=== PATIENT | male | born 1965 | race Caucasian/White ===

== ENCOUNTER 2019-10-31 09:36 | Emergency (ER) | payer MEDICARE, MEDICAID ==
--- NOTE | 2019-10-31 11:00 | ER Document Report ---
ED Medical Screen (RME) - General Chief Complaint: Psych Problem Stated Complaint: PSYCH EVAL/SUICIDAL IDEATION Time Seen by Provider: 10/31/19 10:55 Mode of Arrival: Ambulatory Information source: Patient Notes: 54-year-old male with history of congestive heart failure and suicide attempts presents emergency department with reports that he just wants to cut himself and . Reports history of suicide attempts. Patient is calm answering all questions appropriately, laughs easily. I have greeted and performed a rapid initial assessment of this patient. A comprehensive ED assessment and evaluation of the patient, analysis of test results and completion of the medical decision making process will be conducted by additional ED providers. Dictation of this chart was performed using voice recognition software; therefore, there may be some unintended grammatical errors. - Related Data Allergies/Adverse Reactions: No Known Allergies Allergy (Verified 10/31/19 10:56) Physical Exam - Vital signs Vitals: Temp Pulse Resp BP Pulse Ox 99.0 F 80 22 H 170/80 H 94 10/31/19 09:47 10/31/19 09:47 10/31/19 09:47 10/31/19 09:47 10/31/19 09:47 Course - Vital Signs Vital signs: Temp Pulse Resp BP Pulse Ox 99.0 F 80 22 H 170/80 H 94 10/31/19 09:47 10/31/19 09:47 10/31/19 09:47 10/31/19 09:47 10/31/19 09:47
[2019-10-31 11:33] LABS: ABSOLUTE EOSINOPHILS # (AUTO) 0.2 10^3/uL (0.0-0.6); ABSOLUTE LYMPHOCYTES (AUTO) 1.3 10^3/uL (0.5-4.7); ABSOLUTE MONOCYTES (AUTO) 0.3 10^3/uL (0.1-1.4); ABSOLUTE NEUT (AUTO) 3.8 10^3/uL (1.7-8.2); BASOPHILS % (AUTO) 0.6 % (0-2); HEMATOCRIT 41.8 % (37.9-51.0); HEMOGLOBIN 13.6 g/dL (13.5-17.0); LYMPHOCYTES % (AUTO) 22.8 % (13-45); MEAN CORPUSCULAR HEMOGLOBIN 24.9 pg (27.0-33.4); MEAN CORPUSCULAR HGB CONC 32.6 g/dL (32.0-36.0); MEAN CORPUSCULAR VOLUME 77 fl (80-97); MONOCYTES % (AUTO) 5.2 % (3-13); PLATELET COUNT 187 10^3/uL (150-450); RED BLOOD COUNT 5.46 10^6/uL (4.35-5.55); RED CELL DISTRIBUTION WIDTH 17.1 % (11.5-14.0); SEGMENTED NEUTROPHILS % (AUTO) 68.4 % (42-78); TOTAL CELLS COUNTED % (AUTO) 100 %; WHITE BLOOD COUNT 5.6 10^3/uL (4.0-10.5)
[2019-10-31 11:40] LABS: APPEARANCE,URINE SLIGHTLY-CLOUDY; BILIRUBIN,URINE NEGATIVE (NEGATIVE); COLOR,URINE YELLOW; GLUCOSE, URINE NEGATIVE (NEGATIVE); KETONES,URINE NEGATIVE (NEGATIVE); LEUKOCYTE ESTERASE,URINE NEGATIVE (NEGATIVE); NITRITE,URINE NEGATIVE (NEGATIVE); PROTEIN,URINE NEGATIVE (NEGATIVE); URINE SPECIFIC GRAVITY 1.015
[2019-10-31 11:59] LABS: ALBUMIN 4.6 g/dL (3.5-5.0); ALKALINE PHOSPHATASE 122 U/L (38-126); ANION GAP 11 (5-19); ASPARTATE AMINO TRANSFERASE 25 U/L (17-59); BILIRUBIN,DIRECT 0.1 mg/dL (0.0-0.4); BILIRUBIN,TOTAL 0.8 mg/dL (0.2-1.3); BLOOD UREA NITROGEN 16 mg/dL (7-20); CALCIUM 11.9 mg/dL (8.4-10.2); CARBON DIOXIDE 30 mmol/L (22-30); CHLORIDE 101 mmol/L (98-107); GLUCOSE 105 mg/dL (75-110); POTASSIUM 4.5 mmol/L (3.6-5.0); TOTAL PROTEIN 8.6 g/dL (6.3-8.2)
[2019-10-31 12:00] LABS: ACETAMINOPHEN < 10 ug/mL (10-30); ALCOHOL < 10 mg/dL (NONE DETECTED); SALICYLATE < 1.0 mg/dL (2.0-20.0)
[2019-10-31 12:23] LABS: URINE AMPHETAMINES SCREEN NEGATIVE; URINE BARBITURATES SCREEN NEGATIVE; URINE BENZODIAZEPINES SCREEN NEGATIVE; URINE COCAINE SCREEN NEGATIVE; URINE METHADONE SCREEN NEGATIVE; URINE PHENCYCLIDINE SCREEN NEGATIVE
[2019-10-31 12:27] LABS: URINE MARIJUANA (THC) SCREEN NEGATIVE
--- NOTE | 2019-10-31 12:42 | ER Document Report ---
Entered by ELIEL LUTZ SCRIBE 10/31/19 1204 Acting as scribe for:SARAH HOANG MD ED General <BONI LUND - Last Filed: 10/31/19 16:30> - General Mode of Arrival: Ambulatory Information source: Patient <SARAH HOANG - Last Filed: 10/31/19 17:20> - General Chief Complaint: Suicidal Ideation Stated Complaint: PSYCH EVAL/SUICIDAL IDEATION Time Seen by Provider: 10/31/19 10:55 Notes: Patient is a 54-year-old male presenting to the emergency department with suicidal ideation that began 2 days ago. Patient states he has been staying in [facility], he has strange family relations, and holidays are hard on him. Patient states that he quit drinking 2 months ago, while he was drinking he would drink a case of beer per day typically. Patient states that he does not have thoughts of harming anyone else just himself, and he has cut himself before. Patient most recently was staying in a intermediate house in [place] before he was discharged and had to move into the [facility]. Pertinent PMHx/PSHx: Additional PMHx/PSHx not pertinent to this visit as recorded: CHF, Afib, hyperlipidemia, hypertension, prediabetic. PCP: [facility] (SARAH HOANG) - Related Data Allergies/Adverse Reactions: No Known Allergies Allergy (Verified 10/31/19 10:56) Past Medical History - General Information source: Patient, [facility] Records - Social History Smoking Status: Never Smoker Cigarette use (# per day): No Chew tobacco use (# tins/day): No Smoking Education Provided: No Frequency of alcohol use: States he quit 2 months ago Drug Abuse: Cocaine, Marijuana Occupation: Unemployed Lives with: Homeless Family History: Reviewed & Not Pertinent Patient has suicidal ideation: No Patient has homicidal ideation: No - Past Medical History Cardiac Medical History: Reports: Hx Atrial Fibrillation, Hx Congestive Heart Failure, Hx Hypercholesterolemia, Hx Hypertension Psychiatric Medical History: Reports: Hx Depression Past Surgical History: Reports: Hx Orthopedic Surgery - Total left hip replacement, bone graft left knee, Hx Tonsillectomy <SARAH HOANG - Last Filed: 10/31/19 17:20> Review of Systems - Review of Systems Constitutional: No symptoms reported EENT: No symptoms reported Cardiovascular: No symptoms reported Respiratory: No symptoms reported Gastrointestinal: No symptoms reported Genitourinary: No symptoms reported Male Genitourinary: No symptoms reported Musculoskeletal: No symptoms reported Skin: No symptoms reported Hematologic/Lymphatic: No symptoms reported Neurological/Psychological: See HPI, Suicidal ideation -: Yes All other systems reviewed and negative <SARAH HOANG - Last Filed: 10/31/19 17:20> Physical Exam <SARAH HOANG - Last Filed: 10/31/19 17:20> - Vital signs Vitals: Temp Pulse Resp BP Pulse Ox 99.0 F 80 22 H 170/80 H 94 10/31/19 09:47 10/31/19 09:47 10/31/19 09:47 10/31/19 09:47 10/31/19 09:47 - Notes Notes: Physical Exam: General: Alert, morbidly obese. HEENT: Normocephalic. Atraumatic. PERRL. Extraocular movements intact. Oropharynx clear. Neck: Supple. Non-tender. Respiratory: No respiratory distress. Clear and equal breath sounds bilaterally. Cardiovascular: Regular rate and rhythm. Abdominal: Normal Inspection. Non-tender. No distension. Normal Bowel Sounds. Back: No gross abnormalities. Extremities: Moves all four extremities. Upper extremities: Normal inspection. Normal ROM. Lower extremities: Chronic venous insufficiency bilaterally. Dry skin. 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 Normal ROM. Neurological: Normal cognition. AAOx4. Normal speech. Psychological: Normal affect. Normal Mood. Skin: Warm. Dry. Normal color. (SARAH HOANG) Course - Laboratory Result Diagrams: 10/31/19 11:13 10/31/19 11:13 <BONI LUND - Last Filed: 10/31/19 16:30> - Laboratory Result Diagrams: 10/31/19 11:13 10/31/19 11:13 - EKG Interpretation by Dc EKG shows normal: Sinus rhythm, Kim, Intervals, QRS Complexes, ST-T Waves Rate: Normal - 77 Rhythm: NSR Kim/QRS: Left axis deviation Voltage: Decreased voltage <SARAH HOANG - Last Filed: 10/31/19 17:20> - Vital Signs Vital signs: Temp Pulse Resp BP Pulse Ox 97.9 F 91 20 139/73 H 100 10/31/19 16:49 10/31/19 16:49 10/31/19 16:49 10/31/19 16:49 10/31/19 16:49 - Laboratory Laboratory results interpreted by me: 10/31/19 10/31/19 10/31/19 11:13 11:13 11:13 MCV 77 L MCH 24.9 L RDW 17.1 H Calcium 11.9 H Total Protein 8.6 H Urine Urobilinogen 4.0 H Salicylates < 1.0 L Acetaminophen < 10 L Discharge <BONI LUND - Last Filed: 10/31/19 16:30> <SARAH HOANG - Last Filed: 10/31/19 17:20> - Discharge Clinical Impression: Suicidal ideation, Homeless Condition: Stable Disposition: REHAB FACILITY Additional Instructions: You have been evaluated both medical and behavioral health teams and been deemed appropriate for discharge. The behavioral health team has been able to secure a bed for you at the [facility]. You are highly encouraged to follow through with this voluntary placement. DEPRESSION: Your evaluation reveals that you have mental depression. While symptoms may be vague, they often include disturbance of sleep, fatigue, loss of appetite, and general loss of interest in life. While depression may be a side effect of drugs, or a reaction to a major change in your life, many cases have no known cause. If depression is acute, and related to a major loss in your life, you can expect it to clear completely with time. If you have been depressed a long time, are prone to repeated bouts of depression or low mood, or have been thinking of suicide, get help. Depression can be treated with anti-depressant medication and counselling. Long-term depression will often take a few weeks to clear, even with appropriate medication. Follow-up care is important. SUICIDAL IDEATION: Suicidal ideation is a common medical term for thoughts about suicide, which may be as detailed as a formulated plan, without the suicidal act itself. Although most people who undergo suicidal ideation do not commit suicide, some go on to make suicide attempts. The range of suicidal ideation varies greatly from fleeting to detailed planning, role playing, and unsuccessful attempts. While thoughts about suicide are common, most people do not carry out serious actions to commit suicide. Based upon your evaluation and discussion with you, we do not believe you are currently at risk to act upon your thoughts of suicide. You have agreed to return to the Emergency Department, at any time, if you feel inclined to act upon your suicidal thoughts. FOLLOW-UP CARE: If you have been referred to a physician for follow-up care, call the physicians office for an appointment as you were instructed or within the next two days. If you experience worsening or a significant change in your symptoms, notify the physician immediately or return to the Emergency Department at any time for re-evaluation. Scribe Attestation: 10/31/19 14:00 I personally performed the services described in the documentation, reviewed and edited the documentation which was dictated to the scribe in my presence, and it accurately records my words and actions. (SARAH HOANG) I personally performed the services described in the documentation, reviewed and edited the documentation which was dictated to the scribe in my presence, and it accurately records my words and actions.
--- NOTE | 2019-10-31 15:49 | EKG REPORT ---
SEVERITY:- OTHERWISE NORMAL ECG - SINUS RHYTHM BORDERLINE LEFT AXIS DEVIATION LOW VOLTAGE IN FRONTAL LEADS : Confirmed by: Avery Marte MD 31-Oct-2019 15:48:28
[2019-10-31] MEDS ORDERED: ATENOLOL 50 MG TABLET PO ONE (16:24)
[2019-10-31] MEDS ORDERED: LISINOPRIL 10 MG TABLET PO ONE (16:24)
[2019-10-31 16:52] VITALS: BP 139/73
== END 2019-10-31 16:58 ==
LOC: ER 09:36
DX: R45.851 Suicidal ideations (principal); Z59.0 Homelessness; I50.9 Heart failure, unspecified; I48.91 Unspecified atrial fibrillation; E78.5 Hyperlipidemia, unspecified; I11.0 Hypertensive heart disease with heart failure; R73.03 Prediabetes; E66.01 Morbid (severe) obesity due to excess calories
CPT/HCPCS: 93005; 99285; 36415; 80307 ×4; 85025; 80053; 81001; 93010; A9270 ×2

== ENCOUNTER 2019-10-31 20:02 | Emergency (ER) | payer MEDICARE, MEDICAID ==
--- NOTE | 2019-10-31 21:23 | ER Document Report ---
ED Medical Screen (RME) - General Chief Complaint: Psych Problem Stated Complaint: PSYCH Time Seen by Provider: 10/31/19 21:18 Mode of Arrival: Ambulatory Information source: Patient Notes: This 54-year-old male presents to the emergency department for the second time today for reports of suicidal ideations. He was evaluated here discharged to [place]. He returns now because he did not have the cords to his CPAP machine. Patient reports if we discharge him he will kill himself. Patient is homeless. See labs from earlier today. Respiratory rate even and unlabored. I have greeted and performed a rapid initial assessment of this patient. A comprehensive ED assessment and evaluation of the patient, analysis of test results and completion of the medical decision making process will be conducted by additional ED providers. Dictation of this chart was performed using voice recognition software; therefore, there may be some unintended grammatical errors. - Related Data Allergies/Adverse Reactions: No Known Allergies Allergy (Verified 10/31/19 10:56) Past Medical History - Past Medical History Cardiac Medical History: Reports: Hx Atrial Fibrillation, Hx Congestive Heart Failure, Hx Hypercholesterolemia, Hx Hypertension Psychiatric Medical History: Reports: Hx Depression Past Surgical History: Reports: Hx Orthopedic Surgery - Total left hip replacement, bone graft left knee, Hx Tonsillectomy Physical Exam - Vital signs Vitals: Temp Pulse Resp BP Pulse Ox 97.4 F 71 16 140/69 H 98 10/31/19 20:10 10/31/19 20:10 10/31/19 20:10 10/31/19 20:10 10/31/19 20:10 Course - Vital Signs Vital signs: Temp Pulse Resp BP Pulse Ox 97.4 F 71 16 140/69 H 98 10/31/19 20:10 10/31/19 20:10 10/31/19 20:10 10/31/19 20:10 10/31/19 20:10
--- NOTE | 2019-11-01 01:12 | ER Document Report ---
ED General - General Chief Complaint: Psych Problem Stated Complaint: PSYCH Time Seen by Provider: 10/31/19 21:18 Mode of Arrival: Ambulatory Notes: 54-year-old male presents for SI. Patient is homeless and was cleared by psych earlier and sent to [facility] however patient was discharged. Patient then presented to ER and stated that [facility] would not take him due to not having his CPAP. Patient states that his CPAP is missing parts and he has been without of it for 3 weeks. Patient states if he is discharged from the ER he will cut himself. - Related Data Allergies/Adverse Reactions: No Known Allergies Allergy (Verified 10/31/19 10:56) Home Medications: sleep. depression. seizures. BP. anxiety Past Medical History - General Information source: Patient - Social History Smoking Status: Never Smoker Chew tobacco use (# tins/day): No Frequency of alcohol use: None Drug Abuse: None Family History: Reviewed & Not Pertinent Patient has suicidal ideation: Yes Patient has homicidal ideation: No - Past Medical History Cardiac Medical History: Reports: Hx Atrial Fibrillation, Hx Congestive Heart Failure, Hx Hypercholesterolemia, Hx Hypertension Psychiatric Medical History: Reports: Hx Depression Past Surgical History: Reports: Hx Orthopedic Surgery - Total left hip replacement, bone graft left knee, Hx Tonsillectomy Review of Systems - Review of Systems Notes: Constitutional: Negative for fever. HENT: Negative for sore throat. Eyes: Negative for visual changes. Cardiovascular: Negative for chest pain. Respiratory: Negative for shortness of breath. Gastrointestinal: Negative for abdominal pain, vomiting or diarrhea. Genitourinary: Negative for dysuria. Musculoskeletal: Negative for back pain. Skin: Negative for rash. Neurological: Negative for headaches, weakness or numbness. Psych: Positive for SI. 10 point ROS negative except as marked above and in HPI. Physical Exam - Vital signs Vitals: Temp Pulse Resp BP Pulse Ox 97.4 F 71 16 140/69 H 98 10/31/19 20:10 10/31/19 20:10 10/31/19 20:10 10/31/19 20:10 10/31/19 20:10 - Notes Notes: GENERAL: Well-appearing, well-nourished and in no acute distress. HEAD: Atraumatic, normocephalic. EYES: Extraocular movements intact, sclera anicteric, conjunctiva are normal. NECK: Normal range of motion, supple without lymphadenopathy or JVD. EXTREMITIES: Normal range of motion, no pitting or edema. No clubbing or cyanosis. NEUROLOGICAL: Cranial nerves II through XII grossly intact. Normal speech, normal gait. PSYCH: Suicidal. SKIN: Warm, Dry, normal turgor, no rashes or lesions noted. Course - Re-evaluation Re-evalutation: 11/01/19 patient was medically cleared previously and sent to [facility] however was discharged from there. Patient then presented back to the ER for SI and states "if you discharge me I will cut myself." Labs were not drawn due to them being drawn less than 24 hours ago. Patient is medically cleared at this point and has a pending psych consult. - Vital Signs Vital signs: Temp Pulse Resp BP Pulse Ox 97.6 F 71 13 115/69 96 11/01/19 02:49 11/01/19 02:49 11/01/19 02:49 11/01/19 02:49 11/01/19 02:49 Discharge - Discharge Clinical Impression: Suicidal ideation Condition: Stable Disposition: PSYCH HOSP/UNIT
--- NOTE | 2019-11-01 12:15 | PSYCHOLOGICAL NOTE ---
Psych Note - Psych Note Date seen by psych provider: 11/01/19 Time seen by psych provider: 11:50 Psych Note: Patient was seen and discharged by mental health yesterday, 10/31/2019. Patient elected to voluntarily seek services through [facility]. Per report from Madeleine at [facility], patient denied SI at intake and was therefore unable to assist. Patient immediately returned to ED and endorsed SI when presented with discharge. Patient's status remains unchanged. Patient is experiencing homelessness, estrangement from family, experiences chronic health concerns, and is unable to be self reliant to have his basic needs met. DSM Diagnosis: V60.0 (Z59.0) Homelessness Medication recommendations per [facility] contracted psychiatrist Dr. Cristian WHITTAKER is as follows: NONE Impression/Plan: Patient is cleared from acute psychiatric services. Patient does not meet IVC criteria per [place] GS 122C. Patient endoreses chronic, passive suicidal ideation related to current circumstances. Patient denies homicidal ideations. There is no observed behavior that suggests patient is responding to internal stimuli. Patient denies current auditory and visual hallucinations. Kevin with [facility] has been contacted to provide assistance. Patient was provided with a street sheet of local community resources to contact for assistance. Dr. Ramsey was consulted on the care and management of this patient; attending physician is in agreement with recommendations and disposition.
[2019-11-01 18:05] VITALS: BP 153/91
== END 2019-11-01 17:58 | disposition home or self-care (01) ==
LOC: ER 20:02
DX: R45.851 Suicidal ideations (principal); Z59.0 Homelessness; I48.91 Unspecified atrial fibrillation; I50.9 Heart failure, unspecified; I11.0 Hypertensive heart disease with heart failure
CPT/HCPCS: 99284

== ENCOUNTER 2019-11-30 10:05 | Emergency (ER) | payer MEDICARE, MEDICAID ==
--- NOTE | 2019-11-30 11:24 | EKG REPORT ---
SEVERITY:- BORDERLINE ECG - SINUS RHYTHM BORDERLINE ST ELEVATION, INFERIOR LEADS : Confirmed by: Marjorie Quezada MD 30-Nov-2019 11:23:44
[2019-11-30 11:26] LABS: ABSOLUTE EOSINOPHILS # (AUTO) 0.2 10^3/uL (0.0-0.6); ABSOLUTE LYMPHOCYTES (AUTO) 0.9 10^3/uL (0.5-4.7); ABSOLUTE MONOCYTES (AUTO) 0.4 10^3/uL (0.1-1.4); ABSOLUTE NEUT (AUTO) 3.7 10^3/uL (1.7-8.2); BASOPHILS % (AUTO) 0.8 % (0-2); EOSINOPHILS % (AUTO) 4.3 % (0-6); HEMATOCRIT 36.4 % (37.9-51.0); HEMOGLOBIN 11.7 g/dL (13.5-17.0); LYMPHOCYTES % (AUTO) 16.8 % (13-45); MEAN CORPUSCULAR HEMOGLOBIN 24.6 pg (27.0-33.4); MEAN CORPUSCULAR HGB CONC 32.1 g/dL (32.0-36.0); MEAN CORPUSCULAR VOLUME 77 fl (80-97); PLATELET COUNT 188 10^3/uL (150-450); RED BLOOD COUNT 4.75 10^6/uL (4.35-5.55); RED CELL DISTRIBUTION WIDTH 16.4 % (11.5-14.0); SEGMENTED NEUTROPHILS % (AUTO) 71.1 % (42-78); TOTAL CELLS COUNTED % (AUTO) 100 %; WHITE BLOOD COUNT 5.3 10^3/uL (4.0-10.5)
--- NOTE | 2019-11-30 11:44 | ER Document Report ---
ED General <ALONDRA KAY - Last Filed: 11/30/19 16:36> <VIVIANA STOVALL JR - Last Filed: 11/30/19 18:13> - General Chief Complaint: Chest Pain Stated Complaint: CHEST PAIN Time Seen by Provider: 11/30/19 11:41 Notes: 54-year-old male with a history of congestive heart failure presents emergency department complaining of intermittent chest pain and pressure starting at 6 PM last night that is been getting progressively worse. Denies shortness of breath at rest, diaphoresis, nausea, vomiting, diarrhea. Admits dyspnea max exetion. Patient admits to history of atrial fibrillation and congestive heart failure, denies any history of heart attack although his mother from heart attack at 57, father is still alive at 100 years old. Patient states his last stress test was 1 to 2 years ago in [place]. Admits prediabetes, hypertension and hyperlipidemia, states he is out of his medications. (ALONDRA KAY) - Related Data Allergies/Adverse Reactions: No Known Allergies Allergy (Verified 10/31/19 10:56) Past Medical History - General Information source: Patient - Social History Smoking Status: Former Smoker Frequency of alcohol use: None - Patient denies but review of the record shows prior heavy alcohol use Drug Abuse: Marijuana Family History: CAD - Mother from [place] at 57 Patient has suicidal ideation: No Patient has homicidal ideation: No - Past Medical History Cardiac Medical History: Reports: Hx Atrial Fibrillation, Hx Congestive Heart Failure, Hx Hypercholesterolemia, Hx Hypertension Psychiatric Medical History: Reports: Hx Depression Past Surgical History: Reports: Hx Orthopedic Surgery - Total left hip replacement, bone graft left knee, Hx Tonsillectomy <ALONDRA KAY - Last Filed: 11/30/19 16:36> Review of Systems - Review of Systems Constitutional: No symptoms reported Cardiovascular: See HPI, Edema - Admits chronic swelling to his legs. Respiratory: Other - Dyspnea on exertion Gastrointestinal: No symptoms reported Musculoskeletal: Leg swelling - States this is chronic, Ankle swelling -: Yes All other systems reviewed and negative <ALONDRA KAY - Last Filed: 11/30/19 16:36> Physical Exam - Vital signs Interpretation: Hypertensive <ALONDRA KAY - Last Filed: 11/30/19 16:36> - Vital signs Vitals: Temp Pulse Resp BP Pulse Ox 97.5 F 72 22 H 175/84 H 93 11/30/19 10:39 11/30/19 10:39 11/30/19 10:39 11/30/19 10:39 11/30/19 10:39 - Notes Notes: GENERAL: Alert, interacts well. No acute distress. Orbitally obese. HEAD: Normocephalic, atraumatic EYES: Pupils equal, round and reactive to light, extraocular movements intact. ENT: Oral mucosa moist, tongue midline. NECK: Full range of motion, supple, trachea midline. LUNGS: Clear to auscultation bilaterally, no wheezes, rales or rhonchi, no respiratory distress. HEART: Regular rate and rhythm, no murmurs, gallops, rubs. ABDOMEN: Soft, nontender, nondistended, bowel sounds present in all 4 quadrants. EXTREMITIES: Moves all 4 extremities spontaneously, markedly swollen lower extremities, pitting portion of edema is only 1+, large amount of nonpitting edema, states this is chronic for him and not changed from baseline, radial and dorsalis pedis pulses 2/4 bilaterally. No cyanosis. NEUROLOGICAL: Alert and oriented x3, normal speech. PSYCH: Normal mood, normal affect. SKIN: Warm, Dry, mild erythema to the bilateral lower extremities consistent with chronic cellulitis. (ALONDRA KAY) Course - Laboratory Result Diagrams: 11/30/19 11:10 11/30/19 11:10 <ALONDRA KAY - Last Filed: 11/30/19 16:36> - Laboratory Result Diagrams: 11/30/19 11:10 11/30/19 11:10 <VIVIANA STOVALL JR - Last Filed: 11/30/19 18:13> - Re-evaluation Re-evalutation: 11/30/19 15:46 CBC shows anemia with hemoglobin 11.7, CMP unremarkable, troponin negative x2, proBNP unremarkable at 123, alcohol undetectable. Chest x-ray shows no acute process. Patient will be ambulated with pulse ox to look for hypoxia on exertion. 11/30/19 16:02 Nursing attempted to ambulate patient with pulse ox, simply moving around in the bed the patient apparently desaturates to 88%, I do not have another source for hypoxia, lung sounds are normal. Patient will be sent for CT angiogram to assess for pulmonary embolism causing his chest pain and his shortness of breath. 11/30/19 16:39 Dr. Stovall will follow-up on the results of the CTA and further assess for final disposition. (ALONDRA KAY) 11/30/19 18:09 pt was rechecked with 94% sat standing ; no tachycardia and 100% sat; I dced CT PE (VIVIANA STOVALL JR) - Vital Signs Vital signs: Temp Pulse Resp BP Pulse Ox 97.5 F 72 22 H 175/84 H 97 11/30/19 10:39 11/30/19 10:39 11/30/19 10:39 11/30/19 10:39 11/30/19 11:25 - Laboratory Laboratory results interpreted by me: 11/30/19 11/30/19 11:10 11:10 Hgb 11.7 L Hct 36.4 L MCV 77 L MCH 24.6 L RDW 16.4 H Calcium 10.5 H - EKG Interpretation by Me Additional EKG results interpreted by me: 11/30/19 11:44 EKG shows sinus rhythm at a rate of 72, normal axis, normal intervals, no significant ST segment elevations, there are elevations in 2, 3, aVF that are le ss than 1 mm, no depressions,, no T wave inversions per my interpretation. (ALONDRA KAY) Discharge <ALONDRA KAY - Last Filed: 11/30/19 16:36> <VIVIANA STOVALL JR - Last Filed: 11/30/19 18:13> - Discharge Clinical Impression: Hypertension, Chest pain at rest, Leg edema Condition: Good Disposition: HOME, SELF-CARE Prescriptions: Metolazone [Zaroxolyn 5 Mg Tablet] 5 mg PO DAILY #5 tablet
[2019-11-30 11:52] LABS: ALKALINE PHOSPHATASE 116 U/L (38-126); ANION GAP 7 (5-19); ASPARTATE AMINO TRANSFERASE 35 U/L (17-59); BILIRUBIN,DIRECT 0.3 mg/dL (0.0-0.4); BILIRUBIN,TOTAL 0.8 mg/dL (0.2-1.3); BLOOD UREA NITROGEN 14 mg/dL (7-20); CALCIUM 10.5 mg/dL (8.4-10.2); CARBON DIOXIDE 26 mmol/L (22-30); CHLORIDE 106 mmol/L (98-107); CREATINE KINASE 74 U/L (55-170); GLUCOSE 100 mg/dL (75-110); POTASSIUM 4.7 mmol/L (3.6-5.0); TOTAL PROTEIN 7.8 g/dL (6.3-8.2)
[2019-11-30 12:00] LABS: CREATINE KINASE MB 1.08 ng/mL (<4.55)
--- NOTE | 2019-11-30 12:03 | RADIOLOGY REPORT (SQ) ---
EXAM DESCRIPTION: CHEST 2 VIEWS COMPLETED DATE/TIME: 11/30/2019 11:38 am REASON FOR STUDY: cp COMPARISON: None. EXAM PARAMETERS: NUMBER OF VIEWS: two views TECHNIQUE: Digital Frontal and Lateral radiographic views of the chest acquired. RADIATION DOSE: NA LIMITATIONS: none FINDINGS: LUNGS AND PLEURA: No opacities, masses or pneumothorax. No pleural effusion. MEDIASTINUM AND HILAR STRUCTURES: No masses or contour abnormalities. HEART AND VASCULAR STRUCTURES: Heart normal size. No evidence for failure. BONES: No acute findings. HARDWARE: None in the chest. OTHER: No other significant finding. IMPRESSION: NO ACUTE RADIOGRAPHIC FINDING IN THE CHEST. TECHNICAL DOCUMENTATION: JOB ID: [id number] [employer]- All Rights Reserved Reading location - IP/workstation name: [email or web address]
[2019-11-30 12:04] LABS: TROPONIN I < 0.012 ng/mL
[2019-11-30] MEDS ORDERED: METOPROLOL TARTRATE 50 MG TABLET PO ONE (12:18)
[2019-11-30 15:10] LABS: NT PRO BNP 123 pg/mL (<125); TROPONIN I < 0.012 ng/mL
[2019-11-30] MEDS ORDERED: BUMETANIDE INJ/PF 1 MG/4 ML SDV IV ONE (16:55)
[2019-11-30] MEDS ORDERED: METOLAZONE 5 MG TABLET PO ONE (16:55)
[2019-11-30] MEDS ORDERED: MAGNESIUM SULFATE PF/INJ 40 MEQ/10 ML SDV IV ONE (16:56)
[2019-11-30] MEDS ORDERED: MAGNESIUM SULFATE/D5W 1 GM/100 ML RTUPB IV ONE (18:00)
[2019-11-30] MEDS ORDERED: DILTIAZEM HCL INJ 25 MG/5 ML VIAL IV ONE (18:29)
[2019-11-30 19:30] VITALS: BP 159/93
== END 2019-11-30 19:47 | disposition home or self-care (01) ==
LOC: ER 10:05
DX: R07.89 Other chest pain (principal); I10 Essential (primary) hypertension; R60.0 Localized edema; D64.9 Anemia, unspecified; R06.02 Shortness of breath; L53.9 Erythematous condition, unspecified; F12.10 Cannabis abuse, uncomplicated; Z87.891 Personal history of nicotine dependence; Z82.49 Family history of ischemic heart disease and other diseases of the circulatory system
CPT/HCPCS: 93005; 99285; 96374; 96375; 36415; 82553; 80307; 82550; 83735; 85025; 80053; 84484; 83880; 71046; 93010; J3490 ×2; A9270 ×2

== ENCOUNTER 2019-12-12 11:44 | Emergency (ER) | payer MEDICARE, MEDICAID ==
[2019-12-12] MEDS ORDERED: ONDANSETRON 4 MG TAB.RAPDIS PO ONE (13:30)
--- NOTE | 2019-12-12 13:34 | ER Document Report ---
ED Medical Screen (RME) - General Stated Complaint: ABDOMINAL PAIN/CONSTIPATION Time Seen by Provider: 12/12/19 13:24 Notes: Patient is a 54-year-old male with a history of hypertension, seizures, high cholesterol and A. fib on Xarelto presents emergency department with multiple complaints. Patient reports he developed generalized abdominal pain last night. Patient reports he is having bilateral kidney pain as well as constipation. Patient reports body aches without fever. Patient reports nausea without vomiting or diarrhea. Patient states he does not have any issues with his kidneys or have a history of kidney stones. Patient reports that his urine is slightly darker than normal but is not having any trouble urinating. Patient reports he is not on any medications that he is aware of that would cause constipation. Patient reports that his last bowel movement was yesterday, very small and hard. Patient denies blood in the stool. Patient reports his last normal bowel movement was a few days ago. - Related Data Allergies/Adverse Reactions: No Known Allergies Allergy (Verified 12/12/19 13:24) Past Medical History - Past Medical History Cardiac Medical History: Reports: Hx Atrial Fibrillation, Hx Congestive Heart Failure, Hx Hypercholesterolemia, Hx Hypertension Psychiatric Medical History: Reports: Hx Depression Past Surgical History: Reports: Hx Orthopedic Surgery - Total left hip replacement, bone graft left knee, Hx Tonsillectomy Physical Exam - Vital signs Vitals: Temp Pulse Resp BP Pulse Ox 99.4 F 87 28 H 191/80 H 97 12/12/19 12:36 12/12/19 12:36 12/12/19 12:36 12/12/19 12:36 12/12/19 12:36 - Abdominal Inspection: Morbidly Obese Distension: No distension Bowel sounds: Hyperactive Tenderness: Nontender Organomegaly: No organomegaly Course - Re-evaluation Re-evalutation: 12/12/19 13:32 Patient nontoxic-appearing in triage. Patient is hypertensive with a blood pressure of 191/80. Patient reports having generalized abdominal pain. Patient require a thorough abdominal exam once placed on a stretcher and in the room. Will start out with blood work, urinalysis and give a dose of antinausea medication. I have greeted and performed a rapid initial assessment of this patient. A comprehensive ED assessment and evaluation of the patient, analysis of test results and completion of the medical decision making process will be conducted by additional ED providers. - Vital Signs Vital signs: Temp Pulse Resp BP Pulse Ox 99.4 F 87 28 H 191/80 H 97 12/12/19 12:36 12/12/19 12:36 12/12/19 12:36 12/12/19 12:36 12/12/19 12:36
[2019-12-12 14:25] LABS: ABSOLUTE EOSINOPHILS # (AUTO) 0.1 10^3/uL (0.0-0.6); ABSOLUTE LYMPHOCYTES (AUTO) 0.6 10^3/uL (0.5-4.7); ABSOLUTE MONOCYTES (AUTO) 0.2 10^3/uL (0.1-1.4); ABSOLUTE NEUT (AUTO) 5.5 10^3/uL (1.7-8.2); BASOPHILS % (AUTO) 0.2 % (0-2); EOSINOPHILS % (AUTO) 1.3 % (0-6); HEMATOCRIT 39.6 % (37.9-51.0); HEMOGLOBIN 13.1 g/dL (13.5-17.0); LYMPHOCYTES % (AUTO) 10.1 % (13-45); MEAN CORPUSCULAR HEMOGLOBIN 25.2 pg (27.0-33.4); MEAN CORPUSCULAR VOLUME 76 fl (80-97); MONOCYTES % (AUTO) 3.1 % (3-13); PLATELET COUNT 166 10^3/uL (150-450); RED BLOOD COUNT 5.19 10^6/uL (4.35-5.55); RED CELL DISTRIBUTION WIDTH 17.1 % (11.5-14.0); SEGMENTED NEUTROPHILS % (AUTO) 85.3 % (42-78); TOTAL CELLS COUNTED % (AUTO) 100 %; WHITE BLOOD COUNT 6.4 10^3/uL (4.0-10.5)
[2019-12-12 14:46] LABS: ALBUMIN 4.3 g/dL (3.5-5.0); ALKALINE PHOSPHATASE 107 U/L (38-126); ANION GAP 11 (5-19); ASPARTATE AMINO TRANSFERASE 38 U/L (17-59); BILIRUBIN,DIRECT 0.2 mg/dL (0.0-0.4); BILIRUBIN,TOTAL 0.8 mg/dL (0.2-1.3); BLOOD UREA NITROGEN 22 mg/dL (7-20); CALCIUM 11.1 mg/dL (8.4-10.2); CARBON DIOXIDE 27 mmol/L (22-30); CHLORIDE 100 mmol/L (98-107); GLUCOSE 109 mg/dL (75-110); TOTAL PROTEIN 8.2 g/dL (6.3-8.2)
[2019-12-12 14:48] LABS: APPEARANCE,URINE CLEAR; BILIRUBIN,URINE NEGATIVE (NEGATIVE); COLOR,URINE YELLOW; GLUCOSE, URINE NEGATIVE (NEGATIVE); KETONES,URINE NEGATIVE (NEGATIVE); LEUKOCYTE ESTERASE,URINE NEGATIVE (NEGATIVE); NITRITE,URINE NEGATIVE (NEGATIVE); PROTEIN,URINE NEGATIVE (NEGATIVE); URINE SPECIFIC GRAVITY 1.019
--- NOTE | 2019-12-12 14:58 | ER Document Report ---
ED General - General Chief Complaint: Abdominal Pain Stated Complaint: ABDOMINAL PAIN/CONSTIPATION Time Seen by Provider: 12/12/19 13:24 Mode of Arrival: Ambulatory Information source: Patient Notes: 54-year-old male arrives with chief complaint of 1 day history of diffuse abdominal pain and constipation. Patient has a history of CHF hypertension seizures hypercholesterolemia A. fib Xarelto user. Patient's last bowel movement was yesterday. He complains of pain all over from belly to upper and mid back. He denies any dysuria but does say his urine is more concentrated. I advised him his blood test and urine test revealed increased urobilinogen in his urine indicating stool color absorption and excretion in urine. Patient does not live far from the hospital. TRAVEL OUTSIDE OF THE [place] IN LAST 30 DAYS: No - HPI Onset: This morning Onset/Duration: Sudden Quality of pain: Achy Severity: Moderate Pain Level: 2 Associated symptoms: Weakness, Other - And bilateral kidney pain pointing to his back Exacerbated by: Movement Relieved by: Denies Similar symptoms previously: Yes Recently seen / treated by doctor: Yes - Related Data Allergies/Adverse Reactions: No Known Allergies Allergy (Verified 12/12/19 13:24) Past Medical History - General Information source: Patient - Social History Smoking Status: Former Smoker Cigarette use (# per day): No Chew tobacco use (# tins/day): No Smoking Education Provided: No Frequency of alcohol use: None Drug Abuse: None Family History: CAD - Mother from [place] at 57 Patient has suicidal ideation: No Patient has homicidal ideation: No - Past Medical History Cardiac Medical History: Reports: Hx Atrial Fibrillation, Hx Congestive Heart Failure, Hx Hypercholesterolemia, Hx Hypertension EENT Medical History: Reports: None Endocrine Medical History: Reports: Other - obesity Psychiatric Medical History: Reports: Hx Depression Past Surgical History: Reports: Hx Orthopedic Surgery - Total left hip replacement, bone graft left knee, Hx Tonsillectomy Review of Systems - Review of Systems Constitutional: Other - malaise Physical Exam - Vital signs Vitals: Temp Pulse Resp BP Pulse Ox 99.4 F 87 28 H 191/80 H 97 12/12/19 12:36 12/12/19 12:36 12/12/19 12:36 12/12/19 12:36 12/12/19 12:36 Interpretation: Normal, Hypertensive - General General appearance: Appears well, Other - Morbid obesity - HEENT Head: Normocephalic Eyes: Normal Conjunctiva: Normal Cornea: Normal Extraocular movements intact: Yes Pupils: PERRL Mouth/Lips: Normal Pharynx: Normal Neck: Normal - Respiratory Respiratory status: No respiratory distress Chest status: Nontender Breath sounds: Normal Chest palpation: Normal - Cardiovascular Rhythm: Irregularly irregular Heart sounds: Normal auscultation Murmur: No Friction rub: No Domingo's crunch: No - Abdominal Inspection: Normal Distension: No distension Bowel sounds: Normal Tenderness: Nontender Organomegaly: No organomegaly - Back Back: Normal - Extremities General upper extremity: Normal inspection General lower extremity: Normal inspection - Neurological Neuro grossly intact: Yes Cognition: Normal Orientation: AAOx4 [place] Coma Scale Eye Opening: Spontaneous [place] Coma Scale Verbal: Oriented Speech: Normal Cranial nerves: Normal - Psychological Associated symptoms: Normal affect - Skin Skin Temperature: Warm Skin Moisture: Dry Course - Vital Signs Vital signs: Temp Pulse Resp BP Pulse Ox 99.4 F 87 22 H 133/62 H 96 12/12/19 12:36 12/12/19 12:36 12/12/19 18:02 12/12/19 18:02 12/12/19 18:02 - Laboratory Result Diagrams: 12/12/19 14:00 12/12/19 14:00 Laboratory results interpreted by me: 12/12/19 12/12/19 12/12/19 13:50 14:00 14:00 Hgb 13.1 L MCV 76 L MCH 25.2 L RDW 17.1 H Lymph % (Auto) 10.1 L Seg Neutrophils % 85.3 H BUN 22 H Calcium 11.1 H Urine Urobilinogen 2.0 H Critical Care Note - Critical Care Note Total time excluding time spent on procedures (mins): 90 Discharge - Discharge Clinical Impression: Constipation Qualifiers: Constipation type: unspecified constipation type Qualified Code(s): K59.00 - Constipation, unspecified Hypertension Qualifiers: Hypertension type: unspecified Qualified Code(s): I10 - Essential (primary) hypertension Condition: Good Disposition: HOME, SELF-CARE Additional Instructions: Follow-up with personal doctor this week return to ER as needed; eat an apple a day and take medicines as directed Prescriptions: Lactulose [Cephulac Syrup 20 gm/30 ml Udcup] 20 gm PO DAILY PRN #100 ml PRN Reason:
[2019-12-12] MEDS ORDERED: LACTULOSE SYRUP 20 GM/30 ML UDCUP PO ONE (15:15)
[2019-12-12] MEDS ORDERED: MISOPROSTOL 0.2 MG TABLET PO ONE (15:15)
[2019-12-12] MEDS ORDERED: MAGNESIUM CITRATE 296 ML BOTTLE PO ONE (15:16)
--- NOTE | 2019-12-12 16:13 | RADIOLOGY REPORT (SQ) ---
EXAM DESCRIPTION: ACUTE ABDOMEN SERIES COMPLETED DATE/TIME: 12/12/2019 3:45 pm REASON FOR STUDY: stomach pain COMPARISON: None. NUMBER OF VIEWS: Three views. TECHNIQUE: Frontal chest, supine abdomen and upright/decubitus abdomen radiographic images acquired. LIMITATIONS: None. FINDINGS: CHEST: Lungs clear of infiltrates. FREE AIR: None. No abnormal gas collections. BOWEL GAS PATTERN: Nonobstructive pattern. No dilated loops or air fluid levels. CALCIFICATIONS: No suspicious calcifications. HARDWARE: Intact total left hip arthroplasty hardware. SOFT TISSUES: No gross mass or suggestion of organomegaly. BONES: No acute fracture. No worrisome bone lesions. OTHER: No other significant finding. IMPRESSION: NO RADIOGRAPHIC EVIDENCE FOR ACUTE ABDOMINAL DISEASE. TECHNICAL DOCUMENTATION: JOB ID: [id number] [employer]- All Rights Reserved Reading location - IP/workstation name: [email or web address]
[2019-12-12] MEDS ORDERED: CLONIDINE HCL 0.2 MG TABLET PO ONE (19:47)
[2019-12-12 20:09] VITALS: BP 140/54
== END 2019-12-12 20:13 | disposition home or self-care (01) ==
LOC: ER 11:44
DX: K59.00 Constipation, unspecified (principal); R53.1 Weakness; N23 Unspecified renal colic; M54.9 Dorsalgia, unspecified; R53.81 Other malaise; E66.01 Morbid (severe) obesity due to excess calories; I10 Essential (primary) hypertension; I48.91 Unspecified atrial fibrillation; Z79.01 Long term (current) use of anticoagulants; Z87.891 Personal history of nicotine dependence
CPT/HCPCS: 99285; 36415; 83690; 85025; 80053; 81001; 74022; A9270 ×5; J3490; S0119

== ENCOUNTER 2019-12-16 14:04 | Emergency (ER) | payer MEDICARE, MEDICAID ==
--- NOTE | 2019-12-16 15:54 | ER Document Report ---
ED Medical Screen (RME) - General Chief Complaint: Weakness Stated Complaint: RIGHT LEG WEAKNESS Time Seen by Provider: 12/16/19 15:50 Mode of Arrival: Medic Information source: Patient Notes: 54-year-old male presented to ED for complaint of weakness and numbness from his hip to his foot on his right side. He states he was walking when also he had numbness and weakness to this leg. He states he sat on a wall called the ambulance and came to the hospital. He states he does not know why it also leg went numb. He states he has no previous history of weakness or numbness to this leg he has no history of falls he does not know why he obviously has numbness weakness to this leg. States he does have some pain in his hip level 4. Any incontinence of urine can you put weight on her kidney picking up he is able to move his right leg at this time. He states he has not had any incontinence of urine or stool. He states he does not smoke or drink but he does occasionally use marijuana. He states he is homeless [facility]. I have greeted and performed a rapid initial assessment of this patient. A comprehensive ED assessment and evaluation of the patient, analysis of test results and completion of medical decision making process will be conducted by an additional ED providers. TRAVEL OUTSIDE OF THE [place] IN LAST 30 DAYS: No - Related Data Allergies/Adverse Reactions: No Known Allergies Allergy (Verified 12/12/19 13:24) Past Medical History - Past Medical History Cardiac Medical History: Reports: Hx Atrial Fibrillation, Hx Congestive Heart Failure, Hx Hypercholesterolemia, Hx Hypertension Psychiatric Medical History: Reports: Hx Depression Past Surgical History: Reports: Hx Orthopedic Surgery - Total left hip replacement, bone graft left knee, Hx Tonsillectomy
[2019-12-16] MEDS ORDERED: ACETAMINOPHEN 325 MG TABLET PO ONE (15:55)
[2019-12-16 16:05] VITALS: BP 152/75
[2019-12-16 16:33] LABS: ABSOLUTE EOSINOPHILS # (AUTO) 0.1 10^3/uL (0.0-0.6); ABSOLUTE LYMPHOCYTES (AUTO) 1.1 10^3/uL (0.5-4.7); ABSOLUTE MONOCYTES (AUTO) 0.2 10^3/uL (0.1-1.4); ABSOLUTE NEUT (AUTO) 2.7 10^3/uL (1.7-8.2); BASOPHILS % (AUTO) 0.5 % (0-2); EOSINOPHILS % (AUTO) 2.9 % (0-6); HEMATOCRIT 37.9 % (37.9-51.0); HEMOGLOBIN 12.4 g/dL (13.5-17.0); MEAN CORPUSCULAR HEMOGLOBIN 24.9 pg (27.0-33.4); MEAN CORPUSCULAR HGB CONC 32.6 g/dL (32.0-36.0); MEAN CORPUSCULAR VOLUME 77 fl (80-97); MONOCYTES % (AUTO) 5.6 % (3-13); PLATELET COUNT 188 10^3/uL (150-450); RED BLOOD COUNT 4.96 10^6/uL (4.35-5.55); RED CELL DISTRIBUTION WIDTH 17.4 % (11.5-14.0); TOTAL CELLS COUNTED % (AUTO) 100 %; WHITE BLOOD COUNT 4.1 10^3/uL (4.0-10.5)
[2019-12-16 16:48] LABS: ALBUMIN 4.3 g/dL (3.5-5.0); ALKALINE PHOSPHATASE 102 U/L (38-126); ANION GAP 10 (5-19); ASPARTATE AMINO TRANSFERASE 33 U/L (17-59); BILIRUBIN,TOTAL 0.5 mg/dL (0.2-1.3); BLOOD UREA NITROGEN 17 mg/dL (7-20); CALCIUM 10.6 mg/dL (8.4-10.2); CARBON DIOXIDE 28 mmol/L (22-30); CHLORIDE 101 mmol/L (98-107); GLUCOSE 98 mg/dL (75-110); POTASSIUM 4.1 mmol/L (3.6-5.0); TOTAL PROTEIN 7.9 g/dL (6.3-8.2)
--- NOTE | 2019-12-16 17:04 | RADIOLOGY REPORT (SQ) ---
EXAM DESCRIPTION: L SPINE WHOLE COMPLETED DATE/TIME: 12/16/2019 4:33 pm REASON FOR STUDY: Pain right lower back right hip COMPARISON: None. NUMBER OF VIEWS: Five views including obliques. TECHNIQUE: AP, lateral, oblique, and sacral radiographic images acquired of the lumbar spine. LIMITATIONS: Morbidly obese patient FINDINGS: MINERALIZATION: Normal. SEGMENTATION: Normal. No transitional anatomy. ALIGNMENT: Normal. VERTEBRAE: Maintained height. No fracture or worrisome bone lesion. DISCS: Disc space loss of height at L5-S1 POSTERIOR ELEMENTS: Pedicles and facets are intact. No pars defect or posterior arch defects. Bilat eral lower lumbar facet arthropathy at L3-4, L4-5 and L5-S1 HARDWARE: None in the spine. PARASPINAL SOFT TISSUES: Normal. PELVIS: Bilateral SI joint sclerosis OTHER: No other significant finding. IMPRESSION: Lower lumbar degenerative facet changes and disc space loss of height at L5-S1 TECHNICAL DOCUMENTATION: JOB ID: [id number] [employer]- All Rights Reserved Reading location - IP/workstation name: [email or web address]
--- NOTE | 2019-12-16 17:05 | RADIOLOGY REPORT (SQ) ---
EXAM DESCRIPTION: HIP RIGHT AP/LATERAL COMPLETED DATE/TIME: 12/16/2019 4:33 pm REASON FOR STUDY: Pain right lower back right hip COMPARISON: None. NUMBER OF VIEWS: Two views. TECHNIQUE: AP pelvis and additional frog-leg view of the right hip. LIMITATIONS: Morbidly obese patient FINDINGS: MINERALIZATION: Normal. RIGHT HIP: High-grade joint space narrowing with [id number] appearance and bony spurring. No gross acute fracture. LEFT HIP: Left total hip replacement PUBIS AND ISCHIUM: No fracture. PELVIS: No fracture. SACRUM: Grossly intact LOWER LUMBAR SPINE: Lower lumbar facet arthropathy SOFT TISSUES: Surgical clips right inguinal region OTHER: No other significant finding. IMPRESSION: Osteoarthritis right hip TECHNICAL DOCUMENTATION: JOB ID: [id number] [employer]- All Rights Reserved Reading location - IP/workstation name: [email or web address]
[2019-12-16 19:50] LABS: APPEARANCE,URINE CLEAR; BILIRUBIN,URINE NEGATIVE (NEGATIVE); COLOR,URINE STRAW; GLUCOSE, URINE NEGATIVE (NEGATIVE); KETONES,URINE NEGATIVE (NEGATIVE); PROTEIN,URINE NEGATIVE (NEGATIVE); URINE SPECIFIC GRAVITY 1.008; UROBILINOGEN,URINE NEGATIVE mg/dL (<2.0)
[2019-12-16] MEDS ORDERED: KETOROLAC TROMETHAMINE 60 MG/2 ML SDV IM ONE (20:21)
--- NOTE | 2019-12-16 20:52 | ER Document Report ---
ED General - General Chief Complaint: Weakness Stated Complaint: RIGHT LEG WEAKNESS Time Seen by Provider: 12/16/19 15:50 Mode of Arrival: Medic TRAVEL OUTSIDE OF THE [place] IN LAST 30 DAYS: No - HPI Onset: This morning Onset/Duration: Gradual Quality of pain: Achy, Sharp, Throbbing Severity: Severe Pain Level: 4 Context: 54 year old male arrives with complaints of right hip/ low back pain which radiates down to right foot. Painful to walk, move and better with rest. No h/o similar he tells. With this he has had weakness of that right leg/ hip. No fever or chills. No IVDA. No rash. - Related Data Allergies/Adverse Reactions: No Known Allergies Allergy (Verified 12/16/19 15:54) Home Medications: chf. seizures. htn. high cholesterol. Past Medical History - General Information source: Patient - Social History Smoking Status: Unknown if Ever Smoked Chew tobacco use (# tins/day): No Frequency of alcohol use: None Drug Abuse: Marijuana Family History: CAD - Mother from [place] at 57 Patient has suicidal ideation: No Patient has homicidal ideation: No - Past Medical History Cardiac Medical History: Reports: Hx Atrial Fibrillation, Hx Congestive Heart Failure, Hx Hypercholesterolemia, Hx Hypertension Psychiatric Medical History: Reports: Hx Depression Past Surgical History: Reports: Hx Orthopedic Surgery - Total left hip replacement, bone graft left knee, Hx Tonsillectomy Review of Systems - Review of Systems Constitutional: No symptoms reported EENT: No symptoms reported Cardiovascular: No symptoms reported Respiratory: No symptoms reported Gastrointestinal: No symptoms reported Genitourinary: No symptoms reported Male Genitourinary: No symptoms reported Musculoskeletal: No symptoms reported Skin: No symptoms reported Hematologic/Lymphatic: No symptoms reported Neurological/Psychological: No symptoms reported Physical Exam - Vital signs Vitals: Temp Pulse Resp BP Pulse Ox 98.5 F 95 18 152/75 H 97 12/16/19 16:04 12/16/19 16:04 12/16/19 16:04 12/16/19 16:04 12/16/19 16:04 Interpretation: Normal - General General appearance: Appears well, Alert - HEENT Head: Normocephalic, Atraumatic Eyes: Normal Pupils: PERRL - Respiratory Respiratory status: No respiratory distress Chest status: Nontender Breath sounds: Normal Chest palpation: Normal - Cardiovascular Rhythm: Regular Heart sounds: Normal auscultation Murmur: No - Abdominal Inspection: Normal Distension: No distension Bowel sounds: Normal Tenderness: Nontender Organomegaly: No organomegaly - Back Back: Normal, Nontender, Other - no midline pain - Extremities General upper extremity: Normal inspection, Nontender, Normal color, Normal ROM, Normal temperature General lower extremity: Normal inspection, Nontender, Normal color, Normal ROM, Normal temperature, Normal weight bearing. No: Pierce's sign - Neurological Neuro grossly intact: Yes Cognition: Normal Orientation: AAOx4 [place] Coma Scale Eye Opening: Spontaneous [place] Coma Scale Verbal: Oriented [place] Coma Scale Motor: Obeys Commands [place] Coma Scale Total: 15 Speech: Normal Motor strength normal: LUE, RUE, LLE, RLE Sensory: Normal - Psychological Associated symptoms: Normal affect, Normal mood - Skin Skin Temperature: Warm Skin Moisture: Dry Skin Color: Normal Course - Re-evaluation Re-evalutation: 12/16/19 20:53 MDM 54 year old with right side sciatica. No midline pain. A spinal epidural abcess was considered but in the absence of findings suggestive of this - no fever, no dm, no midline pain or high risk behavior I feel it unlikely and imaging not indicated at this time. Furthermore, pain is the primary issue and more likely is sciatica, perhaps degenerative disc disease. Return here precautions are discussed. I was able to observe the pt ambulate in the ED which he did perhaps with just mild difficulty but no weakness demonstrated. Seems to favor right leg. - Vital Signs Vital signs: Temp Pulse Resp BP Pulse Ox 98.6 F 85 16 152/75 H 98 12/16/19 21:29 12/16/19 21:29 12/16/19 21:29 12/16/19 21:29 12/16/19 21:29 - Laboratory Result Diagrams: 12/16/19 16:15 12/16/19 16:15 Laboratory results interpreted by me: 12/16/19 12/16/19 16:15 16:15 Hgb 12.4 L MCV 77 L MCH 24.9 L RDW 17.4 H Calcium 10.6 H - Diagnostic Test Radiology reviewed: Reports reviewed Discharge - Discharge Clinical Impression: Sciatica of right side Condition: Good Disposition: HOME, SELF-CARE Instructions: Low Back Pain ([facility]), Sciatica ([facility]) Additional Instructions: Rest, ice to back. See the referral doctor or your doctor in followup. Reutrn here for any problems or concerns including, but not limited to fever, weakness or any other concerns. Your blood pressure was elevated here. Be sure and have it rechecked. Prescriptions: Prednisone 10 mg PO 12 #1 tab.ds.pk Metaxalone [Skelaxin 800 mg Tablet] 800 mg PO BID #20 tablet
== END 2019-12-16 21:28 | disposition home or self-care (01) ==
LOC: ER 14:04
DX: M54.31 Sciatica, right side (principal); R53.1 Weakness; I48.91 Unspecified atrial fibrillation; I50.9 Heart failure, unspecified; E78.00 Pure hypercholesterolemia, unspecified; I11.0 Hypertensive heart disease with heart failure; Z96.642 Presence of left artificial hip joint
CPT/HCPCS: 99284; 96372; 36415; 85025; 80053; 81001; 83880; 73502; 72110; A9270; J1885

== ENCOUNTER 2020-01-02 11:30 | Inpatient (IN) | payer MEDICARE, MEDICAID ==
[2020-01-02] MEDS ORDERED: ACETAMINOPHEN 325 MG TABLET PO ONE (11:51)
--- NOTE | 2020-01-02 11:54 | ER Document Report ---
ED Medical Screen (RME) - General Stated Complaint: FLU SYMPTOMS Time Seen by Provider: 01/02/20 11:51 Notes: 54 y/o male presents for body aches, fever, nausea, cough, malaise, urinary incontinence for 2-3 days. Pt states he has history of urinary incontinence in past. Tachycardic in 130s, febrile in triage. Lungs clear to auscultation bilaterally. Hx HTN, CHF, hyperlipidemia. I have greeted and performed a rapid initial assessment of this patient. A comprehensive ED assessment and evaluation of the patient, analysis of test results and completion of the medical decision making process with be conducted by additional ED providers. TRAVEL OUTSIDE OF THE [place] IN LAST 30 DAYS: No - Related Data Allergies/Adverse Reactions: No Known Allergies Allergy (Verified 01/02/20 11:49) Past Medical History - Past Medical History Cardiac Medical History: Reports: Hx Atrial Fibrillation, Hx Congestive Heart Failure, Hx Hypercholesterolemia, Hx Hypertension Psychiatric Medical History: Reports: Hx Depression Past Surgical History: Reports: Hx Orthopedic Surgery - Total left hip r eplacement, bone graft left knee, Hx Tonsillectomy Physical Exam - Vital signs Vitals: Temp Pulse Resp BP Pulse Ox 101 F H 130 H 28 H 155/65 H 94 01/02/20 11:43 01/02/20 11:43 01/02/20 11:43 01/02/20 11:43 01/02/20 11:43 Course - Vital Signs Vital signs: Temp Pulse Resp BP Pulse Ox 101 F H 130 H 28 H 155/65 H 94 01/02/20 11:43 01/02/20 11:43 01/02/20 11:43 01/02/20 11:43 01/02/20 11:43
--- NOTE | 2020-01-02 13:28 | ER Document Report ---
ED General - General Chief Complaint: Flu Symptoms Stated Complaint: FLU SYMPTOMS Time Seen by Provider: 01/02/20 11:51 TRAVEL OUTSIDE OF THE [place] IN LAST 30 DAYS: No - HPI Notes: Patient is a 54-year-old male with a history of congestive heart failure, A. fib, HTN, chronic issues with urinary incontinence who presents to the ED complaining of nasal congestion/discharge, dry nonproductive cough, fever, body ache 2d. Patient states that he is still eating and drinking without difficulties, but does have a decreased p.o. intake. He is still urinating normally (with occ incontinence) and having normal bowel movements. Denies any current headache, neck pain, sore throat, chest pain, palpitations, syncope, shortness of breath, wheeze, dyspnea, abdominal pain, nausea/vomiting/diarrhea, urinary retention, dysuria, hematuria, or rash. - Related Data Allergies/Adverse Reactions: No Known Allergies Allergy (Verified 01/02/20 11:49) Home Medications: zonisamide. atorvastatin. doxepin. MVI. tylenol arthritis. oxybutynin. amlodipine/valsartan/hctz . xarelto. propanolol. chlorthalidone. doxepin. fluoxetine Past Medical History - Social History Smoking Status: Never Smoker Chew tobacco use (# tins/day): No Frequency of alcohol use: None Drug Abuse: None Family History: CAD - Mother from [place] at 57 Patient has suicidal ideation: No Patient has homicidal ideation: No - Past Medical History Cardiac Medical History: Reports: Hx Atrial Fibrillation, Hx Congestive Heart Failure, Hx Hypercholesterolemia, Hx Hypertension Psychiatric Medical History: Reports: Hx Depression Past Surgical History: Reports: Hx Orthopedic Surgery - Total left hip replacement, bone graft left knee, Hx Tonsillectomy Review of Systems - Review of Systems -: Yes All other systems reviewed and negative Physical Exam - Vital signs Vitals: Temp Pulse Resp BP Pulse Ox 101 F H 130 H 28 H 155/65 H 94 01/02/20 11:43 01/02/20 11:43 01/02/20 11:43 01/02/20 11:43 01/02/20 11:43 - Notes Notes: PHYSICAL EXAMINATION: GENERAL: Well-appearing, well-nourished and in no acute distress. A&Ox4. Answers questions appropriately. Moves comfortably w/o notable distress HEAD: Atraumatic, normocephalic. EYES: Pupils equal round and reactive to light, extraocular movements intact, sclera anicteric, conjunctiva are normal. ENT: Nares patent and with clear discharge. oropharynx no erythema without exudates. No tonsilar hypertrophy without erythema or exudate. No palatine shift. Uvula midline. No tongue protrusion. No drooling, hoarseness, or airway compromise. Moist mucous membranes. NECK: Normal range of motion, supple without lymphadenopathy. No rigidity/meningismus. LUNGS: Breath sounds clear to auscultation bilaterally and equal. No wheezes rales or rhonchi. No retractions HEART: Regular rate and rhythm ABDOMEN: Soft, nontender, nondistended abdomen. No guarding, no rebound. Normal bowel sounds present. No CVA tenderness bilaterally. NEUROLOGICAL: Normal speech, normal gait. Ext's: 2+ pitting b/l- chronic/normal per pt. PSYCH: Normal mood, normal affect. SKIN: Warm, Dry, normal turgor, no rashes or lesions noted. Course - Re-evaluation Re-evalutation: 01/02/20 14:30 Patient is a 54-year-old male presenting with fever, tachycardia, tachypnea in the setting of URI symptoms. His chest x-ray is showing developing pneumonia. Influenza was negative. CBC hemolyzed and needs to be redrawn as well as obtaining a lactic acid. Patient is a difficult stick so only some labs were obtained initially. Patient is a congestive heart failure patient so I will only be giving him a single bolus of the thousand mL's at this time. Patient was given Tylenol and Motrin. Levaquin was ordered IV. Heart rate is fluctuating from 98-140 dependent upon activity. Upon completion of labs and patient status, we will consider admission to the hospital. Pt in agreement with plan. 01/02/20 16:52 Patient is a 54-year-old male presents with left upper lobe pneumonia and bandemia. Patient does remain tachycardic even when he is resting in the low 100s. Remaining vitals are acceptable at this time. Patient is now normotherm ic. Call placed for admission to the hospitalist. 01/02/20 17:20 I was able to speak with Dr. Peace who accepted pt to tele floor. - Vital Signs Vital signs: Temp Pulse Resp BP Pulse Ox 98.8 F 130 H 15 142/83 H 99 01/02/20 15:55 01/02/20 11:43 01/02/20 17:01 01/02/20 17:01 01/02/20 17:01 - Laboratory Result Diagrams: 01/02/20 15:36 01/02/20 12:43 Laboratory results interpreted by me: 01/02/20 01/02/20 01/02/20 12:43 12:43 15:36 WBC 13.2 H Hgb 11.3 L Hct 34.8 L MCV 76 L MCH 24.6 L RDW 17.5 H Seg Neuts % (Manual) 90 H Band Neutrophils % 2 L Lymphocytes % (Manual) 6 L Monocytes % (Manual) 2 L Abs Neuts (Manual) 12.1 H Sodium 132.6 L Glucose 143 H Calcium 10.9 H NT-Pro-B Natriuret Pep 474 H Total Protein 8.3 H Urine Protein Urine Urobilinogen 01/02/20 16:52 WBC Hgb Hct MCV MCH RDW Seg Neuts % (Manual) Band Neutrophils % Lymphocytes % (Manual) Monocytes % (Manual) Abs Neuts (Manual) Sodium Glucose Calcium NT-Pro-B Natriuret Pep Total Protein Urine Protein 30 H Urine Urobilinogen 2.0 H Discharge - Discharge Clinical Impression: Left upper lobe pneumonia Qualifiers: Pneumonia type: due to unspecified organism Qualified Code(s): J18.9 - Pneumonia, unspecified organism Condition: Stable Disposition: ADMITTED INPATIENT Admitting Provider: Nata (Hospitalist) Unit Admitted: Telemetry
[2020-01-02] MEDS ORDERED: IBUPROFEN 800 MG TABLET PO ONE (13:32)
[2020-01-02 13:41] LABS: A TYPE INFLUENZA AG NEGATIVE (NEGATIVE); B INFLUENZA AG NEGATIVE (NEGATIVE)
[2020-01-02 14:05] LABS: ALBUMIN 4.4 g/dL (3.5-5.0); ALKALINE PHOSPHATASE 98 U/L (38-126); ANION GAP 12 (5-19); ASPARTATE AMINO TRANSFERASE 28 U/L (17-59); BILIRUBIN,TOTAL 1.2 mg/dL (0.2-1.3); BLOOD UREA NITROGEN 15 mg/dL (7-20); CALCIUM 10.9 mg/dL (8.4-10.2); CARBON DIOXIDE 23 mmol/L (22-30); CHLORIDE 98 mmol/L (98-107); GLUCOSE 143 mg/dL (75-110); POTASSIUM 3.7 mmol/L (3.6-5.0); TOTAL PROTEIN 8.3 g/dL (6.3-8.2)
--- NOTE | 2020-01-02 14:18 | RADIOLOGY REPORT (SQ) ---
EXAM DESCRIPTION: CHEST SINGLE VIEW COMPLETED DATE/TIME: 01/02/2020 2:02 pm REASON FOR STUDY: cough, fever COMPARISON: 11/30/2019 FINDINGS: One view chest AP portable semi-upright. Mild increased left upper lobe/ lingular markings. Suspicious for developing pneumonia. No pneumoth orax or significant pleural fluid. TECHNICAL DOCUMENTATION: JOB ID: [id number] Reading location - IP/workstation name: [email or web address]
[2020-01-02] MEDS ORDERED: LEVOFLOXACIN 750 MG/D5W RTU 750 MG/150 ML RTUPB IV ONE (14:29)
[2020-01-02] MEDS ORDERED: NORMAL SALINE 1000 ML 1,000 ML IV ONE (14:29)
[2020-01-02 15:55] LABS: VENOUS BLOOD BASE EXCESS 0.5 mmol/L; VENOUS BLOOD HCO3 24.8 mmol/L (20-32); VENOUS BLOOD PCO2 38.9 mmHg (35-63); VENOUS BLOOD PH 7.42 (7.30-7.42)
[2020-01-02 16:23] LABS: HEMATOCRIT 34.8 % (37.9-51.0); HEMOGLOBIN 11.3 g/dL (13.5-17.0); MEAN CORPUSCULAR HEMOGLOBIN 24.6 pg (27.0-33.4); MEAN CORPUSCULAR HGB CONC 32.5 g/dL (32.0-36.0); MEAN CORPUSCULAR VOLUME 76 fl (80-97); PLATELET COUNT 162 10^3/uL (150-450); RED CELL DISTRIBUTION WIDTH 17.5 % (11.5-14.0); WHITE BLOOD COUNT 13.2 10^3/uL (4.0-10.5)
[2020-01-02 16:42] LABS: ABSOLUTE LYMPHOCYTES# (MANUAL) 0.8 10^3/uL (0.5-4.7); ABSOLUTE MONOCYTES # (MANUAL) 0.3 10^3/uL (0.1-1.4); BAND NEUTROPHILS % (MANUAL) 2 % (3-5); BASOPHILS % (MANUAL) 0 % (0-2); EOSINOPHILS % (MANUAL) 0 % (0-6); LYMPHOCYTES % (MANUAL) 6 % (13-45); MONOCYTES % (MANUAL) 2 % (3-13); SEGMENTED NEUTROPHILS % (MAN) 90 % (42-78); TOTAL CELLS COUNTED 100
[2020-01-02 16:44] LABS: ANISOCYTOSIS 1+; HYPOCHROMASIA SLIGHT; PLATELET COMMENT ADEQUATE; PLATELET LARGE PRESENT; STOMATOCYTES 1+
[2020-01-02] MEDS ORDERED: IPRATROPIUM/ALBUTEROL 0.5-2.5 MG/3 ML AMPUL NEB ONE (16:56)
[2020-01-02] MEDS ORDERED: METHYLPREDNISOLONE INJ 125 MG/2 ML SDV IV ONE (16:56)
[2020-01-02 17:17] LABS: APPEARANCE,URINE CLEAR; BILIRUBIN,URINE NEGATIVE (NEGATIVE); COLOR,URINE YELLOW; GLUCOSE, URINE NEGATIVE (NEGATIVE); KETONES,URINE NEGATIVE (NEGATIVE); PROTEIN,URINE 30 mg/dL (NEGATIVE)
--- NOTE | 2020-01-02 17:58 | PDOC H&P ---
History of Present Illness History of Present Illness: EMMA BUSTAMANTE is a 54 year old male past medical history of TBI, seizure disorder, cocaine induced cardiomyopathy, who is disabled currently living at the [facility] here at [facility] traveling from [place], history of hypertension, diabetes, hyperlipidemia presenting to ED complaining of fever, chills, nonproductive cough, nausea, generalized fatigue and aching for the last 2 days. Patient living at a ch[facility] and has been exposed to other people with similar symptoms, does not take any medication as he ran out. Denies any chest pain, abdominal pain, vomiting, diarrhea, constipation, oral genital rash, skin rash, numbness, tingling. In ED he was found to be febrile, with neutrophilic cytosis and bandemia and chest x-ray showed possible early developing pneumonia. Hospitalist was consulted for admission. Past Medical History Cardiac Medical History: Reports: Atrial Fibrillation, Congestive Heart Failure, Hyperlipidema, Hypertension Psychiatric Medical History: Reports: Depression Past Surgical History Past Surgical History: Reports: Orthopedic Surgery - Total left hip replacement, bone graft left knee, Tonsillectomy Social History Smoking Status: Never Smoker Electronic Cigarette use?: No Family History Family History: CAD - Mother from [place] at 57 Parental Family History Reviewed: Yes Children Family History Reviewed: Yes Sibling(s) Family History Reviewed.: Yes Medication/Allergy Home Medications: Amlodipine/Valsartan/Hcthiazid [Bohzs-Rehkj-Tydn 10-160-25 mg] 1 each PO DAILY #30 tablet 11/30/19 Doxepin HCl [Sinequan 25 mg Capsule] 25 mg PO QHS #30 capsule 11/30/19 Metolazone [Zaroxolyn 5 Mg Tablet] 5 mg PO DAILY #5 tablet 11/30/19 Rivaroxaban [Xarelto] 20 mg PO DAILY #30 tablet 11/30/19 Zonisamide [Zonegran 100 mg Capsule] 200 mg PO HSP PRN #60 capsule 11/30/19 Lactulose [Cephulac Syrup 20 gm/30 ml Udcup] 20 gm PO DAILY PRN #100 ml 12/12/19 Metaxalone [Skelaxin 800 mg Tablet] 800 mg PO BID #20 tablet 12/16/19 Prednisone 10 mg PO 12 #1 tab.ds.pk 12/16/19 Allergies/Adverse Reactions: No Known Allergies Allergy (Verified 01/02/20 11:49) Review of Systems Review of Systems: as per hpi Physical Exam Vital Signs: Temp Pulse Resp BP Pulse Ox 98.8 F 130 H 15 142/83 H 99 01/02/20 15:55 01/02/20 11:43 01/02/20 17:01 01/02/20 17:01 01/02/20 17:01 Intake & Output 01/01/20 01/02/20 01/03/20 06:59 06:59 06:59 Intake Total 1150 Output Total 200 Balance 950 Weight 197.313 kg General appearance: PRESENT: morbidly obese Head exam: PRESENT: atraumatic, normocephalic Respiratory exam: PRESENT: clear to auscultation annita. ABSENT: rales, rhonchi, w heezes Cardiovascular exam: PRESENT: RRR. ABSENT: diastolic murmur, rubs, systolic murmur GI/Abdominal exam: PRESENT: normal bowel sounds, soft. ABSENT: distended, guarding, mass, organolmegaly, rebound, tenderness Neurological exam: PRESENT: alert, awake, oriented to person, oriented to place, oriented to time, oriented to situation, CN II-XII grossly intact. ABSENT: motor sensory deficit Results Laboratory Results: 01/02/20 15:36 01/02/20 12:43 01/02/20 01/02/20 01/02/20 12:43 12:43 15:36 WBC Cancelled RBC Cancelled Hgb Cancelled Hct Cancelled MCV Cancelled MCH Cancelled MCHC Cancelled RDW Cancelled Plt Count Cancelled Seg Neutrophils % Cancelled VBG pH VBG pCO2 VBG HCO3 VBG Base Excess Sodium 132.6 L Potassium 3.7 Chloride 98 Carbon Dioxide 23 Anion Gap 12 BUN 15 Creatinine 0.92 Est GFR ( Amer) > 60 Glucose 143 H Lactic Acid 1.1 Calcium 10.9 H Total Bilirubin 1.2 AST 28 Alkaline Phosphatase 98 Total Protein 8.3 H Albumin 4.4 Urine Color Urine Appearance Urine pH Ur Specific [place] Urine Protein Urine Glucose (UA) Urine Ketones Urine Blood Urine RBC (Auto) 01/02/20 01/02/20 01/02/20 15:36 15:36 16:52 WBC 13.2 H RBC 4.60 Hgb 11.3 L Hct 34.8 L MCV 76 L MCH 24.6 L MCHC 32.5 RDW 17.5 H Plt Count 162 Seg Neutrophils % Not Reportable VBG pH 7.42 VBG pCO2 38.9 VBG HCO3 24.8 VBG Base Excess 0.5 Sodium Potassium Chloride Carbon Dioxide Anion Gap BUN Creatinine Est GFR ( Amer) Glucose Lactic Acid Calcium Total Bilirubin AST Alkaline Phosphatase Total Protein Albumin Urine Color YELLOW Urine Appearance CLEAR Urine pH 6.0 Ur Specific [place] 1.020 Urine Protein 30 H Urine Glucose (UA) NEGATIVE Urine Ketones NEGATIVE Urine Blood NEGATIVE Urine RBC (Auto) 2 01/02/20 01/02/20 12:43 12:43 Troponin I 0.014 NT-Pro-B Natriuret Pep 474 H Assessment and Plan - Diagnosis (1) Left upper lobe pneumonia Qualifiers: Pneumonia type: due to unspecified organism Qualified Code(s): J18.9 - Pneumonia, unspecified organism Is this a current diagnosis for this admission?: Yes Plan: Most likely community-acquired. Due to gram-positive's including Streptococcus pneumonia. Haemophilus influenza type b and b negative. Admit to floor, broad-spectrum empiric IV antibiotics, sputum culture and blood culture. (2) Morbid obesity Is this a current diagnosis for this admission?: Yes Plan: Diet and lifestyle modification recommended. Will check for TSH. (3) History of seizure disorder Is this a current diagnosis for this admission?: Yes Plan: Has not had any seizure for several years. Restart home meds. Seizure precautions. PRN benzos. Monitor electrolytes and replace as needed. (4) History of traumatic brain injury Is this a current diagnosis for this admission?: Yes Plan: Supportive measures. (5) Hypertension Qualifiers: Hypertension type: essential hypertension Qualified Code(s): I10 - Essential (primary) hypertension Is this a current diagnosis for this admission?: Yes Plan: Euvolemic. Normotensive. Restart home meds. PRN beta-blockers and hydralazine. (6) Diabetes Qualifiers: Diabetes mellitus type: type 2 Is this a current diagnosis for this admission?: Yes Plan: History of untreated diabetes. No A1c available. Diabetic diet. Sliding scale, basal and prandial insulin. Hypoglycemia protocol. Accu-Chek. Will obtain A1c. Diabetic education. (7) CHF (congestive heart failure) Is this a current diagnosis for this admission?: Yes Plan: Does not seem to be acutely exacerbated. Appears euvolemic. proBNP minimally elevated. Cardiac diet. Strict in and out. Restart home meds. (8) History of atrial fibrillation Is this a current diagnosis for this admission?: Yes Plan: You have chronic paroxysmal A. fib. Anticoagulated. Rate controlled. Restart home meds.
[2020-01-02] MEDS ORDERED: ACETAMINOPHEN 325 MG TABLET PO PRN (17:59)
[2020-01-02] MEDS ORDERED: IPRATROPIUM/ALBUTEROL 0.5-2.5 MG/3 ML AMPUL NEB PRN (17:59)
[2020-01-02] MEDS ORDERED: ONDANSETRON HCL INJ/PF 4 MG/2 ML SDV IV PRN (17:59)
[2020-01-02] MEDS ORDERED: PROMETHAZINE HCL INJ 25 MG/1 ML VIAL IV PRN (17:59)
[2020-01-02] MEDS ORDERED: LORAZEPAM INJ 2 MG/1 ML VIAL IV PRN (18:03)
[2020-01-02] MEDS ORDERED: HYDRALAZINE HCL INJ/PF 20 MG/1 ML SDV IV PRN (18:03)
[2020-01-02] MEDS ORDERED: METOPROLOL TARTRATE PF/INJ 5 MG/5 ML SDV IV PRN (18:03)
--- NOTE | 2020-01-02 18:04 | EKG REPORT ---
SEVERITY:- ABNORMAL ECG - SINUS TACHYCARDIA MULTIPLE ATRIAL PREMATURE COMPLEXES LEFT AXIS DEVIATION EARLY PRECORDIAL TRANSITION SUSPECT OLD TRUE POST CT. : Confirmed by: Avery Marte MD 02-Jan-2020 18:04:24
[2020-01-02] MEDS ORDERED: GLUCAGON,HUMAN RECOMB 1 MG INJ IM PRN (18:06)
[2020-01-02] MEDS ORDERED: DEXTROSE 50%-WATER 25 GM/50 ML DISP.SYRIN IV PRN ×2 (18:06)
[2020-01-02] MEDS ORDERED: DEXTROSE 40% GEL 15 GM TUBE PO PRN ×2 (18:06)
[2020-01-02] MEDS ORDERED: LOSARTAN POTASSIUM 50 MG TABLET PO ONE (18:30)
[2020-01-02 20:11] LABS: URINE AMPHETAMINES SCREEN NEGATIVE; URINE BARBITURATES SCREEN NEGATIVE; URINE BENZODIAZEPINES SCREEN NEGATIVE; URINE COCAINE SCREEN NEGATIVE; URINE METHADONE SCREEN NEGATIVE; URINE PHENCYCLIDINE SCREEN NEGATIVE
[2020-01-02 20:19] LABS: URINE MARIJUANA (THC) SCREEN UNCONFIRMED POSITIVE
[2020-01-02] MEDS ORDERED: ZONISAMIDE 100 MG CAPSULE ONE (22:28)
[2020-01-02] MEDS: DOXEPIN HCL 25 MG CAPSULE PO SCH (22:53)
[2020-01-02] MEDS: INSULIN LISPRO 100 UNIT/ML 3 ML VIAL SUBCUT SCH (22:53)
[2020-01-02] MEDS: ZONISAMIDE 100 MG CAPSULE PO SCH (22:53)
[2020-01-02] MEDS: FAMOTIDINE 20 MG TABLET PO SCH (22:53)
[2020-01-02] MEDS: IPRATROPIUM/ALBUTEROL 0.5-2.5 MG/3 ML AMPUL NEB SCH (23:45)
[2020-01-03 05:37] LABS: HEMOGLOBIN 11.8 g/dL (13.5-17.0); MEAN CORPUSCULAR HEMOGLOBIN 24.8 pg (27.0-33.4); MEAN CORPUSCULAR HGB CONC 32.7 g/dL (32.0-36.0); MEAN CORPUSCULAR VOLUME 76 fl (80-97); PLATELET COUNT 158 10^3/uL (150-450); RED BLOOD COUNT 4.76 10^6/uL (4.35-5.55); RED CELL DISTRIBUTION WIDTH 17.8 % (11.5-14.0); WHITE BLOOD COUNT 11.2 10^3/uL (4.0-10.5)
[2020-01-03 05:55] LABS: ALKALINE PHOSPHATASE 107 U/L (38-126); ANION GAP 11 (5-19); ASPARTATE AMINO TRANSFERASE 27 U/L (17-59); BILIRUBIN,TOTAL 0.6 mg/dL (0.2-1.3); BLOOD UREA NITROGEN 17 mg/dL (7-20); CALCIUM 11.1 mg/dL (8.4-10.2); CARBON DIOXIDE 22 mmol/L (22-30); CHLORIDE 103 mmol/L (98-107); CHOLESTEROL 142.09 mg/dL (0-200); GLUCOSE 174 mg/dL (75-110); TOTAL PROTEIN 7.6 g/dL (6.3-8.2); TRIGLYCERIDES 59 mg/dL (<150)
[2020-01-03 06:07] LABS: DIRECT LDL 77 mg/dL (<100)
[2020-01-03] MEDS: IPRATROPIUM/ALBUTEROL 0.5-2.5 MG/3 ML AMPUL NEB SCH ×2 (07:39→16:39)
[2020-01-03] MEDS: FAMOTIDINE 20 MG TABLET PO SCH ×2 (09:43→21:18)
[2020-01-03] MEDS: LOSARTAN POTASSIUM 50 MG TABLET PO SCH (09:43)
[2020-01-03] MEDS: OXYCODONE-ACETAMINOPHEN 5-325 MG TABLET PO PRN ×3 (09:43→19:43)
[2020-01-03] MEDS: METOLAZONE 2.5 MG TABLET PO SCH (09:44)
[2020-01-03] MEDS: METAXALONE 800 MG TABLET PO SCH ×2 (09:44→17:13)
[2020-01-03] MEDS: METOPROLOL SUCCINATE 25 MG TAB.SR.24H PO SCH (09:44)
[2020-01-03] MEDS: INSULIN LISPRO 100 UNIT/ML 3 ML VIAL SUBCUT SCH ×4 (09:53→21:19)
[2020-01-03] MEDS ORDERED: ENOXAPARIN SODIUM INJ 40 MG/0.4 ML DISP.SYRIN SUBCUT SCH (10:00)
[2020-01-03] MEDS ORDERED: RIVAROXABAN 10 MG TABLET PO SCH (10:00)
[2020-01-03] MEDS ORDERED: DOCUSATE SODIUM 100 MG/10 ML UDC PO SCH (10:00)
[2020-01-03] MEDS: LEVOFLOXACIN 750 MG/D5W RTU 750 MG/150 ML RTUPB IV SCH (10:49)
--- NOTE | 2020-01-03 11:26 | PDOC PROGRESS REPORT ---
Subjective Progress Note for:: 01/03/20 Subjective:: EMMA BUSTAMANTE is a 54 year old male past medical history of TBI, seizure disorder, cocaine induced cardiomyopathy, who is disabled currently living at the [facility] traveling from [place], history of hypertension, diabetes, hyperlipidemia presenting to ED complaining of fever, chills, nonproductive cough, nausea, generalized fatigue and aching for the last 2 days. Patient living at a jail and has been exposed to other people with similar symptoms, does not take any medication as he ran out. Denies any chest pain, abdominal pain, vomiting, diarrhea, constipation, oral genital rash, skin rash, numbness, tingling. In ED he was found to be febrile, with neutrophilic cytosis and bandemia and chest x-ray showed possible early developing pneumonia. Hospitalist was consulted for admission. 01/03/2020. No acute events overnight. Patient still complaining of persistent nonproductive cough, generalized fatigue and muscle ache, denies any chest pain, nausea, vomiting, diarrhea, constipation or any urinary symptoms. Reason For Visit: PNEUMONIA Physical Exam Vital Signs: Temp Pulse Resp BP Pulse Ox 97.7 F 108 H 21 H 150/73 H 96 01/03/20 09:00 01/03/20 09:00 01/03/20 09:00 01/03/20 09:00 01/03/20 09:00 Intake & Output 01/02/20 01/03/20 01/04/20 06:59 06:59 06:59 Intake Total 1950 Output Total 200 Balance 1750 Weight 194.3 kg General appearance: PRESENT: morbidly obese Head exam: PRESENT: atraumatic, normocephalic Neck exam: ABSENT: carotid bruit, JVD, lymphadenopathy, thyromegaly Respiratory exam: PRESENT: clear to auscultation annita. ABSENT: rales, rhonchi, wheezes Cardiovascular exam: PRESENT: RRR. ABSENT: diastolic murmur, rubs, systolic murmur GI/Abdominal exam: PRESENT: normal bowel sounds, soft. ABSENT: distended, gua rding, mass, organolmegaly, rebound, tenderness Neurological exam: PRESENT: alert, awake, oriented to person, oriented to place, oriented to time, oriented to situation, CN II-XII grossly intact. ABSENT: motor sensory deficit Results Laboratory Results: 01/03/20 04:27 02/17/20 04:27 01/02/20 01/02/20 01/02/20 12:43 12:43 15:36 WBC Cancelled RBC Cancelled Hgb Cancelled Hct Cancelled MCV Cancelled MCH Cancelled MCHC Cancelled RDW Cancelled Plt Count Cancelled Seg Neutrophils % Cancelled VBG pH VBG pCO2 VBG HCO3 VBG Base Excess Sodium 132.6 L Potassium 3.7 Chloride 98 Carbon Dioxide 23 Anion Gap 12 BUN 15 Creatinine 0.92 Est GFR ( Amer) > 60 Glucose 143 H Lactic Acid 1.1 Calcium 10.9 H Total Bilirubin 1.2 AST 28 Alkaline Phosphatase 98 Total Protein 8.3 H Albumin 4.4 Triglycerides Cholesterol LDL Cholesterol Direct VLDL Cholesterol HDL Cholesterol TSH Urine Color Urine Appearance Urine pH Ur Specific [place] Urine Protein Urine Glucose (UA) Urine Ketones Urine Blood Urine RBC (Auto) 01/02/20 01/02/20 01/02/20 15:36 15:36 16:52 WBC 13.2 H RBC 4.60 Hgb 11.3 L Hct 34.8 L MCV 76 L MCH 24.6 L MCHC 32.5 RDW 17.5 H Plt Count 162 Seg Neutrophils % Not Reportable VBG pH 7.42 VBG pCO2 38.9 VBG HCO3 24.8 VBG Base Excess 0.5 Sodium Potassium Chloride Carbon Dioxide Anion Gap BUN Creatinine Est GFR ( Amer) Glucose Lactic Acid Calcium Total Bilirubin AST Alkaline Phosphatase Total Protein Albumin Triglycerides Cholesterol LDL Cholesterol Direct VLDL Cholesterol HDL Cholesterol TSH Urine Color YELLOW Urine Appearance CLEAR Urine pH 6.0 Ur Specific [place] 1.020 Urine Protein 30 H Urine Glucose (UA) NEGATIVE Urine Ketones NEGATIVE Urine Blood NEGATIVE Urine RBC (Auto) 2 01/03/20 01/03/20 01/03/20 04:27 04:27 04:27 WBC 11.2 H RBC 4.76 Hgb 11.8 L Hct 36.0 L MCV 76 L MCH 24.8 L MCHC 32.7 RDW 17.8 H Plt Count 158 Seg Neutrophils % VBG pH VBG pCO2 VBG HCO3 VBG Base Excess Sodium 136.0 L Potassium 4.0 Chloride 103 Carbon Dioxide 22 Anion Gap 11 BUN 17 Creatinine 0.91 Est GFR ( Amer) > 60 Glucose 174 H Lactic Acid Calcium 11.1 H Total Bilirubin 0.6 AST 27 Alkaline Phosphatase 107 Total Protein 7.6 Albumin 4.0 Triglycerides 59 Cholesterol 142.09 LDL Cholesterol Direct 77 VLDL Cholesterol 12.0 HDL Cholesterol 48 TSH 0.11 L Urine Color Urine Appearance Urine pH Ur Specific [place] Urine Protein Urine Glucose (UA) Urine Ketones Urine Blood Urine RBC (Auto) 01/02/20 01/02/20 12:43 12:43 Troponin I 0.014 NT-Pro-B Natriuret Pep 474 H Assessment and Plan - Diagnosis (1) Left upper lobe pneumonia Qualifiers: Pneumonia type: due to unspecified organism Qualified Code(s): J18.9 - Pneumonia, unspecified organism Is this a current diagnosis for this admission?: Yes Plan: Most likely community-acquired. Due to gram-positive's including Streptococcus pneumonia. Haemophilus influenza type b and b negative. Day 2 IV antibiotics. Blood cultures negative. Day 2 IV levofloxacin. Continue broad-spectrum IV antibiotics. Follow-up sputum and blood culture. (2) Morbid obesity Is this a current diagnosis for this admission?: Yes Plan: Diet and lifestyle modification recommended. Will check for TSH. (3) History of seizure disorder Is this a current diagnosis for this admission?: Yes Plan: Has not had any seizure for several years. Restart home meds. Seizure precautions. PRN benzos. Monitor electrolytes and replace as needed. (4) History of traumatic brain injury Is this a current diagnosis for this admission?: Yes Plan: Supportive measures. (5) Hypertension Qualifiers: Hypertension type: essential hypertension Qualified Code(s): I10 - Essential (primary) hypertension Is this a current diagnosis for this admission?: Yes Plan: Euvolemic. Normotensive. Restart home meds. PRN beta-blockers and hydralazine. (6) Diabetes Qualifiers: Diabetes mellitus type: type 2 Is this a current diagnosis for this admission?: Yes Plan: History of untreated diabetes. Diet controlled. Hemoglobin A1c 5.5. Diabetic diet. Sliding scale, basal and prandial insulin. Hypoglycemia pr otocol. Accu-Chek. (7) CHF (congestive heart failure) Is this a current diagnosis for this admission?: Yes Plan: Does not seem to be acutely exacerbated. Appears euvolemic. proBNP minimally elevated. Cardiac diet. Strict in and out. Restart home meds. (8) History of atrial fibrillation Is this a current diagnosis for this admission?: Yes Plan: History of chronic paroxysmal atrial fibrillation. Rate controlled. Anticoagulated. Resume home meds. Implement fall precaution. Monitor H&H.
[2020-01-03 13:02] LABS: FREE T3 1.71 pg/mL (2.77-5.27); FREE T4 (FREE THYROXINE) 0.88 ng/dL (0.78-2.19)
[2020-01-03] MEDS: ZONISAMIDE 100 MG CAPSULE PO SCH (21:18)
[2020-01-03] MEDS: DOXEPIN HCL 25 MG CAPSULE PO SCH (21:18)
[2020-01-04] MEDS: IPRATROPIUM/ALBUTEROL 0.5-2.5 MG/3 ML AMPUL NEB SCH ×3 (00:28→16:28)
[2020-01-04 04:35] LABS: ABSOLUTE MONOCYTES (AUTO) 0.3 10^3/uL (0.1-1.4); ABSOLUTE NEUT (AUTO) 5.2 10^3/uL (1.7-8.2); BASOPHILS % (AUTO) 0.3 % (0-2); EOSINOPHILS % (AUTO) 0.5 % (0-6); HEMATOCRIT 34.9 % (37.9-51.0); HEMOGLOBIN 11.5 g/dL (13.5-17.0); LYMPHOCYTES % (AUTO) 15.4 % (13-45); MEAN CORPUSCULAR VOLUME 76 fl (80-97); PLATELET COUNT 159 10^3/uL (150-450); RED BLOOD COUNT 4.61 10^6/uL (4.35-5.55); SEGMENTED NEUTROPHILS % (AUTO) 78.8 % (42-78); TOTAL CELLS COUNTED % (AUTO) 100 %; WHITE BLOOD COUNT 6.5 10^3/uL (4.0-10.5)
[2020-01-04] MEDS: INSULIN LISPRO 100 UNIT/ML 3 ML VIAL SUBCUT SCH ×3 (08:28→16:29)
[2020-01-04] MEDS: METOLAZONE 2.5 MG TABLET PO SCH (09:06)
[2020-01-04] MEDS: DOCUSATE SODIUM 100 MG CAPSULE PO SCH (09:06)
[2020-01-04] MEDS: METAXALONE 800 MG TABLET PO SCH ×2 (09:06→17:40)
[2020-01-04] MEDS: FAMOTIDINE 20 MG TABLET PO SCH ×2 (09:07→21:32)
[2020-01-04] MEDS: LEVOFLOXACIN 750 MG/D5W RTU 750 MG/150 ML RTUPB IV SCH (09:07)
[2020-01-04] MEDS: LOSARTAN POTASSIUM 50 MG TABLET PO SCH (09:07)
[2020-01-04] MEDS: METOPROLOL SUCCINATE 25 MG TAB.SR.24H PO SCH (09:07)
[2020-01-04] MEDS: OXYCODONE-ACETAMINOPHEN 5-325 MG TABLET PO PRN ×3 (09:07→18:44)
[2020-01-04] MEDS ORDERED: RIVAROXABAN 10 MG TABLET PO SCH (17:00)
--- NOTE | 2020-01-04 18:05 | PDOC PROGRESS REPORT ---
Subjective Progress Note for:: 01/04/20 Subjective:: No adverse events overnight. No new complaints. He still has a cough. It is mostly nonproductive. His vital signs been stable. Reason For Visit: PNEUMONIA Physical Exam Vital Signs: Temp Pulse Resp BP Pulse Ox 97.6 F 80 18 108/53 L 98 01/04/20 11:39 01/04/20 16:28 01/04/20 16:28 01/04/20 11:39 01/04/20 16:28 Intake & Output 01/03/20 01/04/20 01/05/20 06:59 06:59 06:59 Intake Total 1950 2288 Output Total 200 Balance 1750 2288 Weight 194.3 kg 192.1 kg 192.1 kg General appearance: PRESENT: morbidly obese Head exam: PRESENT: atraumatic, normocephalic Neck exam: ABSENT: carotid bruit, JVD, lymphadenopathy, thyromegaly Respiratory exam: PRESENT: clear to auscultation annita. ABSENT: rales, rhonchi, wheezes Cardiovascular exam: PRESENT: RRR. ABSENT: diastolic murmur, rubs, systolic murmur GI/Abdominal exam: PRESENT: normal bowel sounds, soft. ABSENT: distended, guarding, mass, organolmegaly, rebound, tenderness Neurological exam: PRESENT: alert, awake, oriented to person, oriented to place, oriented to time, oriented to situation, CN II-XII grossly intact. ABSENT: motor sensory deficit Results Laboratory Results: 01/04/20 04:04 01/03/20 04:27 01/04/20 04:04 WBC 6.5 RBC 4.61 Hgb 11.5 L Hct 34.9 L MCV 76 L MCH 25.0 L MCHC 33.0 RDW 18.0 H Plt Count 159 Seg Neutrophils % 78.8 H 01/02/20 01/02/20 12:43 12:43 Troponin I 0.014 NT-Pro-B Natriuret Pep 474 H Assessment and Plan - Diagnosis (1) Left upper lobe pneumonia Qualifiers: Pneumonia type: due to unspecified organism Qualified Code(s): J18.9 - Pneumonia, unspecified organism Is this a current diagnosis for this admission?: Yes (2) Morbid obesity Is this a current diagnosis for this admission?: Yes - Plan Summary Summary: We are waiting for his sputum cultures to come back. Once I have definite sensitivities, he can be discharged home. Anticipate this will happen tomorrow. - Time Time Spent with patient: 15-24 minutes
[2020-01-04] MEDS: DOXEPIN HCL 25 MG CAPSULE PO SCH (21:32)
[2020-01-04] MEDS: ZONISAMIDE 100 MG CAPSULE PO SCH (21:32)
[2020-01-05] MEDS: IPRATROPIUM/ALBUTEROL 0.5-2.5 MG/3 ML AMPUL NEB SCH ×2 (00:49→07:56)
[2020-01-05] MEDS: INSULIN LISPRO 100 UNIT/ML 3 ML VIAL SUBCUT SCH ×3 (02:52→12:48)
[2020-01-05] MEDS: LOSARTAN POTASSIUM 50 MG TABLET PO SCH (09:56)
[2020-01-05] MEDS: FAMOTIDINE 20 MG TABLET PO SCH (09:56)
[2020-01-05] MEDS: METOPROLOL SUCCINATE 25 MG TAB.SR.24H PO SCH (09:56)
[2020-01-05] MEDS: DOCUSATE SODIUM 100 MG CAPSULE PO SCH (09:56)
[2020-01-05] MEDS ORDERED: LEVOFLOXACIN 750 MG TABLET PO SCH (10:00)
[2020-01-05] MEDS: METOLAZONE 2.5 MG TABLET PO SCH (11:10)
[2020-01-05] MEDS: METAXALONE 800 MG TABLET PO SCH (11:10)
[2020-01-05] MEDS: OXYCODONE-ACETAMINOPHEN 5-325 MG TABLET PO PRN (11:10)
[2020-01-05 12:16] VITALS: BP 155/65
--- NOTE | 2020-01-05 15:15 | PDOC DISCHARGE SUMMARY ---
Impression - Admit/DC Date/PCP Admission Date/Primary Care Provider: 01/02/20 17:53 Discharge Date: 01/05/20 - Discharge Diagnosis (1) Left upper lobe pneumonia Is this a current diagnosis for this admission?: Yes (2) Morbid obesity Is this a current diagnosis for this admission?: Yes - Assessment Summary: We are waiting for his sputum cultures to come back. Once I have definite sensitivities, he can be discharged home. Anticipate this will happen tomorrow. - Additional Information Resuscitation Status: Full Code Discharge Diet: Cardiac Discharge Activity: Activity As Tolerated, Walk Frequently Referrals: DESMOND COLORADO MD [ACTIVE STAFF] - 01/13/20 11:00 am (PLEASE ARRIVE AT LEAST 15 MINUTES EARLY TO COMPLETE PAPERWORK. PLEASE BRING INSURANCE CARD,PHOTO ID AND ANY MEDICATIONS CURRENTLY TAKING.) Prescriptions: Metoprolol Succinate [Toprol Xl 25 mg Tab.sr] 25 mg PO DAILY #30 tab.sr.24h Linezolid [Zyvox 600 mg Tablet] 600 mg PO Q12 #14 tablet Home Medications: Doxepin HCl [Sinequan 25 mg Capsule] 25 mg PO QHS #30 capsule 11/30/19 Rivaroxaban [Xarelto] 20 mg PO DAILY #30 tablet 11/30/19 Zonisamide [Zonegran 100 mg Capsule] 200 mg PO HSP PRN #60 capsule 11/30/19 Acetaminophen [Arthritis Pain Reliever] 1,300 mg PO Q12 01/03/20 Amlodipine/Valsartan/Hcthiazid [Exforge Hct 10-160-25 mg Tab] 1 each PO DAILY 01/03/20 Multivit-Min/Folic/Vit K/Lycop [One-A-Day Men's 50 Plus Tablet] 1 each PO DAILY 01/03/20 Linezolid [Zyvox 600 mg Tablet] 600 mg PO Q12 #14 tablet 01/05/20 Metoprolol Succinate [Toprol Xl 25 mg Tab.sr] 25 mg PO DAILY #30 tab.sr.24h 01/05/20 History of Present Illiness History of Present Illness: EMMA BUSTAMANTE is a 54 year old male past medical history of TBI, seizure disor sneha, cocaine induced cardiomyopathy, who is disabled currently living at the snf here at [facility] traveling from [place], history of hypertension, diabetes, hyperlipidemia presenting to ED complaining of fever, chills, nonproductive cough, nausea, generalized fatigue and aching for the last 2 days. Patient living at a snf and has been exposed to other people with similar symptoms, does not take any medication as he ran out. Denies any chest pain, abdominal pain, vomiting, diarrhea, constipation, oral genital rash, skin rash, numbness, tingling. In ED he was found to be febrile, with neutrophilic cytosis and bandemia and chest x-ray showed possible early developing pneumonia. Hospitalist was consulted for admission. Hospital Course Hospital Course: He improved on Levaquin, but the susceptibilities for fluoroquinolones were not tested against a sputum specimen. He turned out to have an MRSA. He will complete a course of treatment with p.o. Zyvox. He was instructed not to take his doxepin while he is on Zyvox. His SPO2 on room air remained well within the normal range. He does not have a primary care provider but was encouraged to get one soon. His labs and examination were reassuring he was discharged in stable condition. Physical Exam Vital Signs: Temp Pulse Resp BP Pulse Ox 97.9 F 96 18 155/65 H 90 L 01/05/20 12:15 01/05/20 12:15 01/05/20 12:15 01/05/20 12:15 01/05/20 12:15 Intake & Output 01/04/20 01/05/20 01/06/20 06:59 06:59 06:59 Intake Total 2288 2330 Balance 2288 2330 Weight 192.1 kg 188 kg General appearance: PRESENT: morbidly obese Head exam: PRESENT: atraumatic, normocephalic Neck exam: ABSENT: carotid bruit, JVD, lymphadenopathy, thyromegaly Respiratory exam: PRESENT: clear to auscultation annita. ABSENT: rales, rhonchi, wheezes Cardiovascular exam: PRESENT: RRR. ABSENT: diastolic murmur, rubs, systolic murmur GI/Abdominal exam: PRESENT: normal bowel sounds, soft. ABSENT: distended, guarding, mass, organolmegaly, rebound, tenderness Neurological exam: PRESENT: alert, awake, oriented to person, oriented to place, oriented to time, oriented to situation, CN II-XII grossly intact. ABSENT: motor sensory deficit Results Laboratory Results: WBC 6.5 10^3/uL (4.0-10.5) 01/04/20 04:04 RBC 4.61 10^6/uL (4.35-5.55) 01/04/20 04:04 Hgb 11.5 g/dL (13.5-17.0) L 01/04/20 04:04 Hct 34.9 % (37.9-51.0) L 01/04/20 04:04 MCV 76 fl (80-97) L 01/04/20 04:04 MCH 25.0 pg (27.0-33.4) L 01/04/20 04:04 MCHC 33.0 g/dL (32.0-36.0) 01/04/20 04:04 RDW 18.0 % (11.5-14.0) H 01/04/20 04:04 Plt Count 159 10^3/uL (150-450) 01/04/20 04:04 Lymph % (Auto) 15.4 % (13-45) 01/04/20 04:04 [place] % (Auto) 5.0 % (3-13) 01/04/20 04:04 Eos % (Auto) 0.5 % (0-6) 01/04/20 04:04 Baso % (Auto) 0.3 % (0-2) 01/04/20 04:04 Absolute Neuts (auto) 5.2 10^3/uL (1.7-8.2) 01/04/20 04:04 Absolute Lymphs (auto) 1.0 10^3/uL (0.5-4.7) 01/04/20 04:04 Absolute Monos (auto) 0.3 10^3/uL (0.1-1.4) 01/04/20 04:04 Absolute Eos (auto) 0.0 10^3/uL (0.0-0.6) 01/04/20 04:04 Absolute Basos (auto) 0.0 10^3/uL (0.0-0.2) 01/04/20 04:04 Total Counted 100 01/02/20 15:36 Seg Neutrophils % 78.8 % (42-78) H 01/04/20 04:04 Seg Neuts % (Manual) 90 % (42-78) H 01/02/20 15:36 Band Neutrophils % 2 % (3-5) L 01/02/20 15:36 Lymphocytes % (Manual) 6 % (13-45) L 01/02/20 15:36 Monocytes % (Manual) 2 % (3-13) L 01/02/20 15:36 Eosinophils % (Manual) 0 % (0-6) 01/02/20 15:36 Basophils % (Manual) 0 % (0-2) 01/02/20 15:36 Abs Neuts (Manual) 12.1 10^3/uL (1.7-8.2) H 01/02/20 15:36 Abs Lymphs (Manual) 0.8 10^3/uL (0.5-4.7) 01/02/20 15:36 Abs Monocytes (Manual) 0.3 10^3/uL (0.1-1.4) 01/02/20 15:36 Absolute Eos (Manual) 0.0 10^3/uL (0.0-0.6) 01/02/20 15:36 Abs Basophils (Manual) 0.0 10^3/uL (0.0-0.2) 01/02/20 15:36 Platelet Estimate Cancelled 01/02/20 12:43 Large Platelets PRESENT 01/02/20 15:36 Platelet Comment ADEQUATE 01/02/20 15:36 Hypochromasia SLIGHT 01/02/20 15:36 Anisocytosis 1+ 01/02/20 15:36 Microcytosis SLIGHT 01/02/20 15:36 Stomatocytes 1+ 01/02/20 15:36 VBG pH 7.42 (7.30-7.42) 01/02/20 15:36 VBG pCO2 38.9 mmHg (35-63) 01/02/20 15:36 VBG HCO3 24.8 mmol/L (20-32) 01/02/20 15:36 VBG Base Excess 0.5 mmol/L 01/02/20 15:36 Sodium 136.0 mmol/L (137-145) L 01/03/20 04:27 Potassium 4.0 mmol/L (3.6-5.0) 01/03/20 04:27 Chloride 103 mmol/L (98-107) 01/03/20 04:27 Carbon Dioxide 22 mmol/L (22-30) 01/03/20 04:27 Anion Gap 11 (5-19) 01/03/20 04:27 BUN 17 mg/dL (7-20) 01/03/20 04:27 Creatinine 0.91 mg/dL (0.52-1.25) 01/03/20 04:27 Est GFR ( Amer) > 60 (>60) 01/03/20 04:27 Est GFR (MDRD) Non-Af > 60 (>60) 01/03/20 04:27 Glucose 174 mg/dL (75-110) H 01/03/20 04:27 POC Glucose 121 mg/dL (70-110) H 01/05/20 08:20 Hemoglobin A1c % 5.5 % (4.7-6.0) 01/03/20 04:27 Lactic Acid 1.1 mmol/L (0.7-2.1) 01/02/20 15:36 Calcium 11.1 mg/dL (8.4-10.2) H 01/03/20 04:27 Total Bilirubin 0.6 mg/dL (0.2-1.3) 01/03/20 04:27 Direct Bilirubin 0.0 mg/dL (0.0-0.4) 01/03/20 04:27 Neonat Total Bilirubin Not Reportable 01/03/20 04:27 Neonat Direct Bilirubin Not Reportable 01/03/20 04:27 Neonat Indirect Bili Not Reportable 01/03/20 04:27 AST 27 U/L (17-59) 01/03/20 04:27 ALT 21 U/L (<50) 01/03/20 04:27 Alkaline Phosphatase 107 U/L (38-126) 01/03/20 04:27 Troponin I 0.014 ng/mL 01/02/20 12:43 NT-Pro-B Natriuret Pep 474 pg/mL (<125) H 01/02/20 12:43 Total Protein 7.6 g/dL (6.3-8.2) 01/03/20 04:27 Albumin 4.0 g/dL (3.5-5.0) 01/03/20 04:27 Triglycerides 59 mg/dL (<150) 01/03/20 04:27 Cholesterol 142.09 mg/dL (0-200) 01/03/20 04:27 LDL Cholesterol Direct 77 mg/dL (<100) 01/03/20 04:27 VLDL Cholesterol 12.0 mg/dL (10-31) 01/03/20 04:27 HDL Cholesterol 48 mg/dL (>40) 01/03/20 04:27 TSH 0.11 uIU/mL (0.47-4.68) L 01/03/20 04:27 Free T4 0.88 ng/dL (0.78-2.19) 01/03/20 04:27 Free T3 pg/mL 1.71 pg/mL (2.77-5.27) L 01/03/20 04:27 Urine Color YELLOW 01/02/20 16:52 Urine Appearance CLEAR 01/02/20 16:52 Urine pH 6.0 (5.0-9.0) 01/02/20 16:52 Ur Specific Eva 1.020 01/02/20 16:52 Urine Protein 30 mg/dL (NEGATIVE) H 01/02/20 16:52 Urine Glucose (UA) NEGATIVE mg/dL (NEGATIVE) 01/02/20 16:52 Urine Ketones NEGATIVE mg/dL (NEGATIVE) 01/02/20 16:52 Urine Blood NEGATIVE (NEGATIVE) 01/02/20 16:52 Urine Nitrite (Reflex) NEGATIVE (NEGATIVE) 01/02/20 16:52 Urine Bilirubin NEGATIVE (NEGATIVE) 01/02/20 16:52 Urine Urobilinogen 2.0 mg/dL (<2.0) H 01/02/20 16:52 Leukocyte Esterase Rfl NEGATIVE (NEGATIVE) 01/02/20 16:52 Urine RBC (Auto) 2 /HPF 01/02/20 16:52 Urine WBC (Reflex) 1 /HPF 01/02/20 16:52 Squamous Epi Cells Auto <1 /HPF 01/02/20 16:52 Urine Mucus (Auto) RARE /LPF 01/02/20 16:52 Urine Ascorbic Acid NEGATIVE (NEGATIVE) 01/02/20 16:52 Urine Opiates Screen NEGATIVE 01/02/20 16:52 Urine Methadone Screen NEGATIVE 01/02/20 16:52 Ur Barbiturates Screen NEGATIVE 01/02/20 16:52 Ur Phencyclidine Scrn NEGATIVE 01/02/20 16:52 Ur Amphetamines Screen NEGATIVE 01/02/20 16:52 U Benzodiazepines Scrn NEGATIVE 01/02/20 16:52 Urine Cocaine Screen NEGATIVE 01/02/20 16:52 U Marijuana (THC) Screen UNCONFIRMED POSITIVE 01/02/20 16:52 Influenza A (Rapid) NEGATIVE (NEGATIVE) 01/02/20 12:43 Influenza B (Rapid) NEGATIVE (NEGATIVE) 01/02/20 12:43 Slides for Path Review Cancelled 01/02/20 12:43 01/02/20 01/02/20 12:43 12:43 Troponin I 0.014 NT-Pro-B Natriuret Pep 474 H Plan Time Spent: Greater than 30 Minutes Stroke Is this a Stroke Patient?: No Acute Heart Failure - Is this a Heart Failure Patient?: No
== END 2020-01-05 13:25 | disposition home or self-care (01) | DRG 194 ==
LOC: ER 11:30 → EH 17:53 → 5 18:50
PROVIDERS: ADMIT Internal Medicine; ATTEND Internal Medicine
DX: J13 Pneumonia due to Streptococcus pneumoniae (principal); Z68.43 Body mass index [BMI] 50.0-59.9, adult; E66.01 Morbid (severe) obesity due to excess calories; E11.9 Type 2 diabetes mellitus without complications; E78.5 Hyperlipidemia, unspecified; I48.0 Paroxysmal atrial fibrillation; E78.00 Pure hypercholesterolemia, unspecified; G40.909 Epilepsy, unspecified, not intractable, without status epilepticus; A49.02 Methicillin resistant Staphylococcus aureus infection, unspecified site; F32.9 Major depressive disorder, single episode, unspecified; I10 Essential (primary) hypertension; Z96.642 Presence of left artificial hip joint; Z79.899 Other long term (current) drug therapy; Z79.01 Long term (current) use of anticoagulants; Z87.820 Personal history of traumatic brain injury
CPT/HCPCS: 36415; 71045; 80053; 80061; 80307; 81001; 82803; 82962; 83036; 83605; 83880; 84439; 84443; 84481; 84484; 85025; 85027; 87040; 87070; 87077; 87186; 87205; 87804; 93005; 93010; 94640; 96365; 96366; 96375; 99284; J1815; J1956; J2930; J3490; J7030; J7620

== ENCOUNTER 2020-01-11 10:20 | Emergency (ER) | payer MEDICARE, MEDICAID ==
[2020-01-11 11:43] LABS: ABSOLUTE EOSINOPHILS # (AUTO) 0.1 10^3/uL (0.0-0.6); ABSOLUTE LYMPHOCYTES (AUTO) 1.3 10^3/uL (0.5-4.7); ABSOLUTE MONOCYTES (AUTO) 0.3 10^3/uL (0.1-1.4); ABSOLUTE NEUT (AUTO) 3.7 10^3/uL (1.7-8.2); BASOPHILS % (AUTO) 0.7 % (0-2); HEMATOCRIT 36.2 % (37.9-51.0); HEMOGLOBIN 11.6 g/dL (13.5-17.0); LYMPHOCYTES % (AUTO) 23.6 % (13-45); MEAN CORPUSCULAR HEMOGLOBIN 24.7 pg (27.0-33.4); MEAN CORPUSCULAR HGB CONC 32.1 g/dL (32.0-36.0); MEAN CORPUSCULAR VOLUME 77 fl (80-97); MONOCYTES % (AUTO) 5.9 % (3-13); PLATELET COUNT 227 10^3/uL (150-450); RED CELL DISTRIBUTION WIDTH 17.8 % (11.5-14.0); SEGMENTED NEUTROPHILS % (AUTO) 68.8 % (42-78); TOTAL CELLS COUNTED % (AUTO) 100 %; WHITE BLOOD COUNT 5.4 10^3/uL (4.0-10.5)
[2020-01-11 11:48] LABS: VENOUS BLOOD BASE EXCESS 3.5 mmol/L; VENOUS BLOOD HCO3 30.8 mmol/L (20-32); VENOUS BLOOD PH 7.36 (7.30-7.42)
[2020-01-11 12:07] LABS: ALBUMIN 4.2 g/dL (3.5-5.0); ALKALINE PHOSPHATASE 107 U/L (38-126); ANION GAP 8 (5-19); ASPARTATE AMINO TRANSFERASE 26 U/L (17-59); BILIRUBIN,DIRECT 0.3 mg/dL (0.0-0.4); BILIRUBIN,TOTAL 0.5 mg/dL (0.2-1.3); BLOOD UREA NITROGEN 16 mg/dL (7-20); CARBON DIOXIDE 27 mmol/L (22-30); CHLORIDE 104 mmol/L (98-107); GLUCOSE 87 mg/dL (75-110); POTASSIUM 4.3 mmol/L (3.6-5.0); TOTAL PROTEIN 8.2 g/dL (6.3-8.2)
--- NOTE | 2020-01-11 12:07 | RADIOLOGY REPORT (SQ) ---
EXAM DESCRIPTION: CHEST SINGLE VIEW COMPLETED DATE/TIME: 01/11/2020 11:37 am REASON FOR STUDY: cough COMPARISON: 01/02/2020. EXAM PARAMETERS: NUMBER OF VIEWS: One view. TECHNIQUE: Single frontal radiographic view of the chest acquired. RADIATION DOSE: NA LIMITATIONS: None. FINDINGS: LUNGS AND PLEURA: No opacities, masses or pneumothorax. No pleural effusion. MEDIASTINUM AND HILAR STRUCTURES: No masses. Contour normal. HEART AND VASCULAR STRUCTURES: Mild cardiomegaly. Normal vasculature. BONES: No acute findings. HARDWARE: None in the chest. OTHER: No other significant finding. IMPRESSION: MILD CARDIOMEGALY. NO ACUTE RADIOGRAPHIC FINDING IN THE CHEST. TECHNICAL DOCUMENTATION: JOB ID: [id number] 2010 [employer]- All Rights Reserved Reading location - IP/workstation name: [email or web address]
[2020-01-11 12:19] LABS: NT PRO BNP 152 pg/mL (<125); TROPONIN I < 0.012 ng/mL
--- NOTE | 2020-01-11 14:54 | ER Document Report ---
ED General - General Chief Complaint: Respiratory Distress Stated Complaint: TROUBLE BREATHING Time Seen by Provider: 01/11/20 10:55 Primary Care Provider: DESMOND COLORADO MD [Primary Care Provider] - Follow up as needed Mode of Arrival: Ambulatory Information source: Patient TRAVEL OUTSIDE OF THE [place] IN LAST 30 DAYS: No - HPI Notes: Patient arrives complaining of some chest pain generalized body aches and some shortness of breath. He states he was recently in the hospital and diagnosed with pneumonia. He states he was discharged from the hospital approximately 5 days ago. He states that he did not go to the pharmacy and flower buncher or picker his antibiotic because he did not have a ride. He states he is concerned that his pneumonia may be worsening. He states that the chest pain is substernal and moderate. Is constant. Nothing makes it better or worse. It does not radiate. He has had no vomiting or diarrhea. No fevers. His cough is been dry and nonproductive. - Related Data Allergies/Adverse Reactions: No Known Allergies Allergy (Verified 01/02/20 11:49) Past Medical History - General Information source: Patient - Social History Smoking Status: Former Smoker Chew tobacco use (# tins/day): No Frequency of alcohol use: None Drug Abuse: None Family History: CAD - Mother from [place] at 57 Patient has suicidal ideation: No Patient has homicidal ideation: No - Past Medical History Cardiac Medical History: Reports: Hx Atrial Fibrillation, Hx Congestive Heart Failure, Hx Hypercholesterolemia, Hx Hypertension Pulmonary Medical History: Reports: Hx Pneumonia Psychiatric Medical History: Reports: Hx Depression Past Surgical History: Reports: Hx Orthopedic Surgery - Total left hip replacement, bone graft left knee, Hx Tonsillectomy Review of Systems - Review of Systems Constitutional: Malaise, Weakness, Recent illness. denies: Chills, Fever Cardiovascular: Chest pain. denies: Palpitations Respiratory: Cough, Short of breath -: Yes All other systems reviewed and negative Physical Exam - Vital signs Vitals: Temp Pulse Resp BP Pulse Ox 98.9 F 104 H 26 H 184/76 H 96 01/11/20 10:41 01/11/20 10:41 01/11/20 10:41 01/11/20 10:41 01/11/20 10:41 Interpretation: Hypertensive, Tachycardic - General General appearance: Appears well, Alert - HEENT Head: Normocephalic, Atraumatic Eyes: Normal Pupils: PERRL - Respiratory Respiratory status: No respiratory distress Chest status: Nontender Breath sounds: Normal Chest palpation: Normal - Cardiovascular Rhythm: Regular Heart sounds: Normal auscultation Murmur: No - Abdominal Inspection: Normal Distension: No distension Bowel sounds: Normal Tenderness: Nontender Organomegaly: No organomegaly - Back Back: Normal, Nontender - Extremities General upper extremity: Normal inspection, Nontender, Normal color, Normal ROM, Normal temperature General lower extremity: Nontender, Normal temperature, Other - Patient's lower extremities have bilateral venous stasis changes.. No: Pierce's sign - Neurological Neuro grossly intact: Yes Cognition: Normal Orientation: AAOx4 Montgomery Coma Scale Eye Opening: Spontaneous Montgomery Coma Scale Verbal: Oriented Montgomery Coma Scale Motor: Obeys Commands Jose Coma Scale Total: 15 Speech: Normal Motor strength normal: LUE, RUE, LLE, RLE Sensory: Normal - Psychological Associated symptoms: Normal affect, Normal mood - Skin Skin Temperature: Warm Skin Moisture: Dry Skin Color: Normal Course - Re-evaluation Re-evalutation: 01/11/20 14:55 Patient presents with generalized body aches some shortness of breath chest pain. His work-up does not show any evidence of cardiac pathology. He has no fever or elevated white blood cell count. His chest x-ray is also clear. His vital signs are normal with a 100% saturation on room air. He is no longer tachycardic. He is not tachypneic. He is reclining in the bed and in no distress. At this time I think the best course is for patient be discharged home to follow-up as an outpatient. - Vital Signs Vital signs: Temp Pulse Resp BP Pulse Ox 98.9 F 104 H 23 H 184/76 H 98 01/11/20 10:41 01/11/20 10:41 01/11/20 11:21 01/11/20 10:41 01/11/20 11:21 - Laboratory Result Diagrams: 01/11/20 11:20 01/11/20 11:20 Laboratory results interpreted by me: 01/11/20 01/11/20 01/11/20 11:20 11:20 11:20 Hgb 11.6 L Hct 36.2 L MCV 77 L MCH 24.7 L RDW 17.8 H Calcium 11.0 H NT-Pro-B Natriuret Pep 152 H - Diagnostic Test Radiology reviewed: Image reviewed, Reports reviewed - EKG Interpretation by Me EKG shows normal: Sinus rhythm Rate: Normal - 95 Rhythm: NSR Voltage: Decreased voltage Discharge - Discharge Clinical Impression: Chest pain Qualifiers: Chest pain type: unspecified Qualified Code(s): R07.9 - Chest pain, unspecified Condition: Stable Disposition: HOME, SELF-CARE Instructions: Chest Pain of Unclear Cause ([facility]) Additional Instructions: Please call your primary provider as soon as possible to arrange follow-up Forms: Elevated Blood Pressure Referrals: DESMOND COLORADO MD [Primary Care Provider] - Follow up tomorrow
[2020-01-11 15:17] VITALS: BP 147/71
--- NOTE | 2020-01-11 17:06 | EKG REPORT ---
SEVERITY:- BORDERLINE ECG - SINUS RHYTHM LOW VOLTAGE IN FRONTAL LEADS : Confirmed by: Marjorie Quezada MD 11-Jan-2020 17:06:13
== END 2020-01-11 15:17 | disposition home or self-care (01) ==
LOC: ER 10:20
DX: R07.9 Chest pain, unspecified (principal); M79.10 Myalgia, unspecified site; R06.02 Shortness of breath; Z87.891 Personal history of nicotine dependence; I50.9 Heart failure, unspecified; I11.0 Hypertensive heart disease with heart failure
CPT/HCPCS: 36415; 71045; 80053; 82803; 82962; 83605; 83880; 84484; 85025; 87040; 87077; 87186; 93005; 93010; 99285

== ENCOUNTER 2020-01-13 07:20 | Emergency (ER) | payer MEDICARE, MEDICAID ==
[2020-01-13] MEDS ORDERED: OXYCODONE-ACETAMINOPHEN 5-325 MG TABLET PO ONE (09:29)
--- NOTE | 2020-01-13 09:31 | ER Document Report ---
ED General - General Chief Complaint: Leg Swelling Stated Complaint: LEG SWELLING Time Seen by Provider: 01/13/20 09:00 Primary Care Provider: DESMOND COLORADO MD [Primary Care Provider] - Follow up in 3-5 days Mode of Arrival: Ambulatory Information source: Patient Notes: This 54-year-old male with history of CHF A. fib hypertension venous stasis presents emergency department with complaints of left lower leg pain. Reports he has had the left leg swelling with weeping for the past week. Also complains of a laceration to the bottom of his foot since at least January 02. He is unsure of how he cut himself. Reports calf pain. Denies fever vomiting diarrhea. Patient reports he took Tylenol without relief of symptoms. Patient reports increased pain with walking. TRAVEL OUTSIDE OF THE [place] IN LAST 30 DAYS: No - HPI Onset: Last week Onset/Duration: Persistent Quality of pain: Achy Associated symptoms: None Exacerbated by: Walking Relieved by: Denies Similar symptoms previously: No Recently seen / treated by doctor: Yes - Related Data Allergies/Adverse Reactions: No Known Allergies Allergy (Verified 01/13/20 07:49) Home Medications: [facility] Past Medical History - General Information source: Patient - Social History Smoking Status: Former Smoker Cigarette use (# per day): No Chew tobacco use (# tins/day): No Frequency of alcohol use: Rare Drug Abuse: Marijuana Lives with: Family Family History: CAD - Mother from [place] at 57 Patient has suicidal ideation: No Patient has homicidal ideation: No - Past Medical History Cardiac Medical History: Reports: Hx Atrial Fibrillation, Hx Congestive Heart Failure, Hx Hypercholesterolemia, Hx Hypertension Pulmonary Medical History: Reports: Hx Pneumonia Psychiatric Medical History: Reports: Hx Depression Past Surgical History: Reports: Hx Orthopedic Surgery - Total left hip replacement, bone graft left knee, Hx Tonsillectomy Review of Systems - Review of Systems Notes: Review HPI for review of systems., All other systems negative Physical Exam - Vital signs Vitals: Temp Pulse Resp BP Pulse Ox 97.8 F 103 H 20 168/70 H 96 01/13/20 07:30 01/13/20 07:30 01/13/20 07:30 01/13/20 07:30 01/13/20 07:30 - General General appearance: Alert, Anxious In distress: None - HEENT Head: Normocephalic Eyes: Normal Conjunctiva: Normal Extraocular movements intact: Yes Pupils: PERRL Neck: Normal - Respiratory Respiratory status: No respiratory distress Chest status: Nontender Breath sounds: Normal Chest palpation: Normal - Cardiovascular Rhythm: Tachycardia - Abdominal Inspection: Normal Distension: No distension Bowel sounds: Normal Tenderness: Nontender Organomegaly: No organomegaly - Back Back: Normal, Nontender - Extremities General upper extremity: Normal ROM General lower extremity: Normal ROM, Pierce's sign Calf: Tender Foot: Laceration - Skin Skin Temperature: Warm Skin Moisture: Dry Skin irregularity: Erythema, Laceration - left foot ~4cm Location of irregularity: Extremities - LLL with weeping Irregularity with: Tenderness, Warmth - warmth/tenderness/erythema to LLL Course - Re-evaluation Re-evalutation: 01/13/20 11:27 Patient presents emergency department with complaints of left lower leg pain swelling weeping. Has a laceration to bottom his foot he is not sure how that happened. Denies fever vomiting diarrhea. Labs are unremarkable. X-rays negative for acute infection or injury. Patient was instructed on Keflex Tylenol for the pain. He reports he is living at his girlfriend's and he will have a way to go get his medication. Patient was instructed on signs and symptoms of increasing infection to return to the emergency department immediately. He verbalized understanding to all instructions. Laboratory 01/13/20 01/13/20 01/13/20 09:45 09:45 09:45 WBC 4.6 RBC 4.48 Hgb 11.1 L Hct 34.2 L MCV 76 L MCH 24.9 L MCHC 32.5 RDW 17.7 H Plt Count 217 Lymph % (Auto) 20.6 [place] % (Auto) 5.8 Eos % (Auto) 1.1 Baso % (Auto) 0.5 Absolute Neuts (auto) 3.3 Absolute Lymphs (auto) 0.9 Absolute Monos (auto) 0.3 Absolute Eos (auto) 0.1 Absolute Basos (auto) 0.0 Seg Neutrophils % 72.0 Sodium 141.0 Potassium 4.3 Chloride 105 Carbon Dioxide 29 Anion Gap 7 BUN 18 Creatinine 0.74 Est GFR ( Amer) > 60 Est GFR (MDRD) Non-Af > 60 Glucose 107 Calcium 10.4 H Total Bilirubin 0.4 Direct Bilirubin 0.3 Neonat Total Bilirubin Not Reportable Neonat Direct Bilirubin Not Reportable Neonat Indirect Bili Not Reportable AST 24 ALT 19 Alkaline Phosphatase 85 NT-Pro-B Natriuret Pep 88 Total Protein 7.4 Albumin 3.7 Foot X-Ray 01/13/20 09:28 IMPRESSION: Dorsal soft tissue swelling and advanced osteoarthrosis of the midfoot joints. There is no radiopaque foreign body or fracture. Venous Doppler Study 01/13/20 09:28 IMPRESSION: NO EVIDENCE OF DVT OR SVT IN THE LEFT LEG. 01/13/20 18:01 - Vital Signs Vital signs: Temp Pulse Resp BP Pulse Ox 97.9 F 79 20 158/93 H 97 01/13/20 11:50 01/13/20 11:50 01/13/20 07:30 01/13/20 11:50 01/13/20 11:50 - Laboratory Result Diagrams: 01/13/20 09:45 01/13/20 09:45 Laboratory results interpreted by me: 01/13/20 01/13/20 09:45 09:45 Hgb 11.1 L Hct 34.2 L MCV 76 L MCH 24.9 L RDW 17.7 H Calcium 10.4 H - Diagnostic Test Radiology reviewed: Image reviewed, Reports reviewed Discharge - Discharge Clinical Impression: Morbid obesity Cellulitis Qualifiers: Site of cellulitis: extremity Site of cellulitis of extremity: lower extremity Laterality: left Qualified Code(s): L03.116 - Cellulitis of left lower limb Condition: Stable Disposition: HOME, SELF-CARE Instructions: Acetaminophen, [facility], Cellulitis ([facility]), Cephalexin ([facility]) Additional Instructions: *You have been treated for left lower leg cellulitis, foot laceration *Take medication as prescribed *Monitor your leg for infection such as increased redness increased swelling warmth discharge *Keep your leg and foot clean, apply topical antibiotic to the vomiting foot keep it covered and clean *Follow up with Dr. [place] within the next 5 days for recheck *Return to ED for signs of increasing infection, worsening condition, changes, needs Prescriptions: Cephalexin Monohydrate [Keflex 500 mg Capsule] 500 mg PO QID #20 capsule Referrals: DESMOND COLORADO MD [Primary Care Provider] - Follow up in 3-5 days
[2020-01-13 10:12] LABS: ABSOLUTE EOSINOPHILS # (AUTO) 0.1 10^3/uL (0.0-0.6); ABSOLUTE LYMPHOCYTES (AUTO) 0.9 10^3/uL (0.5-4.7); ABSOLUTE MONOCYTES (AUTO) 0.3 10^3/uL (0.1-1.4); ABSOLUTE NEUT (AUTO) 3.3 10^3/uL (1.7-8.2); BASOPHILS % (AUTO) 0.5 % (0-2); EOSINOPHILS % (AUTO) 1.1 % (0-6); HEMATOCRIT 34.2 % (37.9-51.0); HEMOGLOBIN 11.1 g/dL (13.5-17.0); LYMPHOCYTES % (AUTO) 20.6 % (13-45); MEAN CORPUSCULAR HEMOGLOBIN 24.9 pg (27.0-33.4); MEAN CORPUSCULAR HGB CONC 32.5 g/dL (32.0-36.0); MEAN CORPUSCULAR VOLUME 76 fl (80-97); MONOCYTES % (AUTO) 5.8 % (3-13); PLATELET COUNT 217 10^3/uL (150-450); RED BLOOD COUNT 4.48 10^6/uL (4.35-5.55); RED CELL DISTRIBUTION WIDTH 17.7 % (11.5-14.0); TOTAL CELLS COUNTED % (AUTO) 100 %; WHITE BLOOD COUNT 4.6 10^3/uL (4.0-10.5)
--- NOTE | 2020-01-13 10:19 | RADIOLOGY REPORT (SQ) ---
EXAM DESCRIPTION: FOOT LEFT 2 VIEWS COMPLETED DATE/TIME: 01/13/2020 10:06 am REASON FOR STUDY: laceration, pain COMPARISON: None. NUMBER OF VIEWS: Three views. TECHNIQUE: AP, lateral and oblique radiographic images acquired of the left foot. LIMITATIONS: None. FINDINGS: MINERALIZATION: Normal. BONES: No acute fracture or dislocation. No periarticular osteopenia or erosion. JOINTS: Advanced osteoarthrosis of the midfoot joints. The normal tarsometatarsal alignment is prese rved. SOFT TISSUES: Soft tissue swelling along the dorsal aspect of the foot. There is no radiopaque forei gn body. OTHER: Enthesophytes at the calcaneal insertion of the plantar fascia. IMPRESSION: Dorsal soft tissue swelling and advanced osteoarthrosis of the midfoot joints. There is no radiopaque foreign body or fracture. TECHNICAL DOCUMENTATION: JOB ID: [id number] 2010 [employer]- All Rights Reserved Reading location - IP/workstation name: [email or web address]
[2020-01-13 10:38] LABS: ALBUMIN 3.7 g/dL (3.5-5.0); ALKALINE PHOSPHATASE 85 U/L (38-126); ANION GAP 7 (5-19); ASPARTATE AMINO TRANSFERASE 24 U/L (17-59); BILIRUBIN,DIRECT 0.3 mg/dL (0.0-0.4); BILIRUBIN,TOTAL 0.4 mg/dL (0.2-1.3); BLOOD UREA NITROGEN 18 mg/dL (7-20); CALCIUM 10.4 mg/dL (8.4-10.2); CARBON DIOXIDE 29 mmol/L (22-30); CHLORIDE 105 mmol/L (98-107); GLUCOSE 107 mg/dL (75-110); POTASSIUM 4.3 mmol/L (3.6-5.0); TOTAL PROTEIN 7.4 g/dL (6.3-8.2)
--- NOTE | 2020-01-13 10:42 | RADIOLOGY REPORT (SQ) ---
EXAM DESCRIPTION: VENOUS UNILATERAL LOWER COMPLETED DATE/TIME: 01/13/2020 10:27 am REASON FOR STUDY: swelling, calf pain COMPARISON: None. TECHNIQUE: Dynamic and static rios scale and color images acquired of the left leg venous system. Se lected spectral images acquired with additional compression and augmentation maneuvers. The contralat eral common femoral vein and saphenofemoral junction were also imaged. Images stored on PACS. LIMITATIONS: None. FINDINGS: COMMON FEMORAL: Normal phasicity, compression and augmentation. No visualized echogenic ma terial on rios scale. No defects on color images. FEMORAL: Normal compression and augmentation. No visualized echogenic material on rios scale. No defe cts on color images. POPLITEAL: Normal compression, augmentation. No visualized echogenic material on rios scale. No defec ts on color images. CALF VESSELS: Normal compression, augmentation. No visualized echogenic material on rios scale. No de fects on color images. GSV and SSV: Normal compression, augmentation. No visualized echogenic material on rios scale. No def ects on color images. ANY DEEP VENOUS INSUFFICIENCY: No. ANY EVIDENCE OF POPLITEAL CYST: No. OTHER: No other finding. CONTRALATERAL COMMON FEMORAL VEIN AND SAPHENOFEMORAL JUNCTION: Normal phasicity, compression and augmentation. No visualized echogenic material on rios scale. No de fects on color images. IMPRESSION: NO EVIDENCE OF DVT OR SVT IN THE LEFT LEG. TECHNICAL DOCUMENTATION: JOB ID: [id number] [employer]- All Rights Reserved Reading location - IP/workstation name: [email or web address]
[2020-01-13] MEDS ORDERED: CEPHALEXIN 500 MG CAPSULE PO ONE (11:26)
[2020-01-13 11:52] VITALS: BP 158/93
== END 2020-01-13 12:10 | disposition home or self-care (01) ==
LOC: ER 07:20
DX: L03.116 Cellulitis of left lower limb (principal); S91.312A Laceration without foreign body, left foot, initial encounter; X58.XXXA Exposure to other specified factors, initial encounter; E66.01 Morbid (severe) obesity due to excess calories; M19.072 Primary osteoarthritis, left ankle and foot; I10 Essential (primary) hypertension; F12.10 Cannabis abuse, uncomplicated; Z87.891 Personal history of nicotine dependence
CPT/HCPCS: 99284; 36415; 85025; 80053; 83880; 93971; 73620; A9270 ×2

== ENCOUNTER 2020-01-14 12:59 | Emergency (ER) | payer MEDICARE, MEDICAID ==
--- NOTE | 2020-01-14 13:44 | ER Document Report ---
ED Medical Screen (RME) - General Chief Complaint: Chest Pain Stated Complaint: CHEST PAIN Time Seen by Provider: 01/14/20 13:40 Primary Care Provider: DESMOND COLORADO MD [Primary Care Provider] - Follow up as needed TRAVEL OUTSIDE OF THE [place] IN LAST 30 DAYS: No - HPI Notes: 01/14/20 13:43 Patient is a 54-year-old male with a history of CHF, hypertension, venous stasis currently has cellulitis of his left lower extremity presents per the direction of Dr. Colorado for further evaluation of CHF as he has been having weight gain recently and chest pain over the past hour. He will get short of breath with exertion. Denies drug allergies. No fever. I have treated and performed a rapid initial assessment of this patient. A comprehensive ED assessment and evaluation of the patient, analysis of test results and completion of medical decision making process will be conducted by additional ED providers. PHYSICAL EXAMINATION: GENERAL: Well-appearing, well-nourished and in no acute distress. A&Ox4. Answers questions appropriately. Lungs: Grossly CTAB Extremities: Lymphedema noted bilaterally. There is erythema to the left lower extremity and serous drainage. - Related Data Allergies/Adverse Reactions: No Known Allergies Allergy (Verified 01/13/20 07:49) Past Medical History - Past Medical History Cardiac Medical History: Reports: Hx Atrial Fibrillation, Hx Congestive Heart Failure, Hx Hypercholesterolemia, Hx Hypertension Pulmonary Medical History: Reports: Hx Pneumonia Psychiatric Medical History: Reports: Hx Depression Past Surgical History: Reports: Hx Orthopedic Surgery - Total left hip replacement, bone graft left knee, Hx Tonsillectomy Physical Exam - Vital signs Vitals: Temp Pulse Resp BP Pulse Ox 98.5 F 92 16 159/77 H 97 01/14/20 13:19 01/14/20 13:19 01/14/20 13:19 01/14/20 13:19 01/14/20 13:19 Course - Vital Signs Vital signs: Temp Pulse Resp BP Pulse Ox 98.5 F 92 16 159/77 H 97 01/14/20 13:19 01/14/20 13:19 01/14/20 13:19 01/14/20 13:19 01/14/20 13:19 Doctor's Discharge - Discharge Referrals: DESMOND COLORADO MD [Primary Care Provider] - Follow up as needed
--- NOTE | 2020-01-14 13:55 | EKG REPORT ---
SEVERITY:- BORDERLINE ECG - SINUS RHYTHM PROBABLE LEFT ATRIAL ABNORMALITY : Confirmed by: Marjorie Quezada MD 14-Jan-2020 13:54:04
--- NOTE | 2020-01-14 14:27 | RADIOLOGY REPORT (SQ) ---
EXAM DESCRIPTION: CHEST 2 VIEWS COMPLETED DATE/TIME: 01/14/2020 2:10 pm REASON FOR STUDY: CP COMPARISON: 01/11/2020 EXAM PARAMETERS: NUMBER OF VIEWS: two views TECHNIQUE: Digital Frontal and Lateral radiographic views of the chest acquired. RADIATION DOSE: NA LIMITATIONS: none FINDINGS: LUNGS AND PLEURA: No opacities, masses or pneumothorax. No pleural effusion. MEDIASTINUM AND HILAR STRUCTURES: No masses or contour abnormalities. HEART AND VASCULAR STRUCTURES: Mildly enlarged, stable. BONES: No acute findings. HARDWARE: None in the chest. OTHER: No other significant finding. IMPRESSION: No evidence of acute intrathoracic process. TECHNICAL DOCUMENTATION: JOB ID: [id number] 2010 [employer]- All Rights Reserved Reading location - IP/workstation name: [email or web address]
[2020-01-14 16:48] LABS: ABSOLUTE EOSINOPHILS # (AUTO) 0.1 10^3/uL (0.0-0.6); ABSOLUTE LYMPHOCYTES (AUTO) 1.3 10^3/uL (0.5-4.7); ABSOLUTE MONOCYTES (AUTO) 0.3 10^3/uL (0.1-1.4); ABSOLUTE NEUT (AUTO) 3.9 10^3/uL (1.7-8.2); BASOPHILS % (AUTO) 0.4 % (0-2); EOSINOPHILS % (AUTO) 1.6 % (0-6); HEMATOCRIT 35.9 % (37.9-51.0); HEMOGLOBIN 11.6 g/dL (13.5-17.0); LYMPHOCYTES % (AUTO) 23.5 % (13-45); MEAN CORPUSCULAR HEMOGLOBIN 24.9 pg (27.0-33.4); MEAN CORPUSCULAR HGB CONC 32.5 g/dL (32.0-36.0); MEAN CORPUSCULAR VOLUME 77 fl (80-97); MONOCYTES % (AUTO) 5.9 % (3-13); PLATELET COUNT 206 10^3/uL (150-450); RED BLOOD COUNT 4.68 10^6/uL (4.35-5.55); RED CELL DISTRIBUTION WIDTH 17.9 % (11.5-14.0); SEGMENTED NEUTROPHILS % (AUTO) 68.6 % (42-78); TOTAL CELLS COUNTED % (AUTO) 100 %; WHITE BLOOD COUNT 5.7 10^3/uL (4.0-10.5)
[2020-01-14 17:05] LABS: ALBUMIN 4.3 g/dL (3.5-5.0); ALKALINE PHOSPHATASE 104 U/L (38-126); ANION GAP 6 (5-19); ASPARTATE AMINO TRANSFERASE 23 U/L (17-59); BILIRUBIN,TOTAL 0.6 mg/dL (0.2-1.3); BLOOD UREA NITROGEN 15 mg/dL (7-20); CARBON DIOXIDE 29 mmol/L (22-30); CHLORIDE 106 mmol/L (98-107); GLUCOSE 104 mg/dL (75-110); TOTAL PROTEIN 8.1 g/dL (6.3-8.2)
[2020-01-14 17:16] LABS: NT PRO BNP 131 pg/mL (<125)
[2020-01-14 17:17] LABS: TROPONIN I < 0.012 ng/mL
--- NOTE | 2020-01-14 17:17 | ER Document Report ---
ED General - General Chief Complaint: Chest Pain Stated Complaint: CHEST PAIN Time Seen by Provider: 01/14/20 13:40 Primary Care Provider: DESMOND COLORADO MD [Primary Care Provider] - Follow up as needed Information source: Patient Notes: per DINO Patten Patient is a 54-year-old male with a history of CHF, hypertension, venous stasis currently has cellulitis of his left lower extremity presents per the direction of Dr. Colorado for further evaluation of CHF as he has been having weight gain recently and chest pain over the past hour. He will get short of breath with exertion. Denies drug allergies. No fever. Actually took report from Dr. Colorado about this patient. He saw this patient in office and the patient began to complain of chest pain. Dr. Colorado reports that he had been seen here recently in the ER and there is some question of homelessness. Interviewed this patient at 1730 and he advises his blood pressure medicine and Lasix and antibiotics were called into [facility] pharmacy by Dr. Colorado. Patient has IV in his right forearm and therefore he will receive Bumex 1 IV and Catapres 0.2 p.o. and Rocephin 1 g IV Patient reports he has had high blood pressure since his 20s and he has had edema of bilateral legs for 1 year. TRAVEL OUTSIDE OF THE [place] IN LAST 30 DAYS: No - Related Data Allergies/Adverse Reactions: No Known Allergies Allergy (Verified 01/14/20 16:13) Past Medical History - General Information source: Patient - Social History Smoking Status: Never Smoker Cigarette use (# per day): No Chew tobacco use (# tins/day): No Smoking Education Provided: No Frequency of alcohol use: None Drug Abuse: None Lives with: Alone Family History: CAD - Mother from [place] at 57, Other - Patient reports he does not talk with his family much estranged Patient has suicidal ideation: No Patient has homicidal ideation: No - Past Medical History Cardiac Medical History: Reports: Hx Atrial Fibrillation, Hx Congestive Heart Failure, Hx Hypercholesterolemia, Hx Hypertension Pulmonary Medical History: Reports: Hx Pneumonia Psychiatric Medical History: Reports: Hx Depression Past Surgical History: Reports: Hx Orthopedic Surgery - Total left hip re placement, bone graft left knee, Hx Tonsillectomy Review of Systems - Review of Systems Constitutional: See HPI EENT: No symptoms reported Cardiovascular: See HPI, Chest pain Respiratory: No symptoms reported Gastrointestinal: No symptoms reported Genitourinary: No symptoms reported Male Genitourinary: No symptoms reported Musculoskeletal: No symptoms reported, See HPI, Joint swelling, Leg swelling, Ankle swelling - With stasis dermatitis of left lower extremity from left foot to left mid woodson with erythema to his dorsal foot and distal one third of woodson with expression of serous fluid from distal tibia clear Skin: No symptoms reported Hematologic/Lymphatic: No symptoms reported Neurological/Psychological: No symptoms reported Physical Exam - Vital signs Vitals: Temp Pulse Resp BP Pulse Ox 98.5 F 92 16 159/77 H 97 01/14/20 13:19 01/14/20 13:19 01/14/20 13:19 01/14/20 13:19 01/14/20 13:19 Interpretation: Normal - General General appearance: Alert In distress: None - HEENT Head: Normocephalic Eyes: Normal Conjunctiva: Normal Cornea: Normal Eyelashes: Normal Pupils: PERRL Pharynx: Normal Neck: Normal - Respiratory Respiratory status: No respiratory distress Chest status: Nontender Breath sounds: Normal Chest palpation: Normal - Cardiovascular Rhythm: Regular Heart sounds: Normal auscultation Murmur: No Friction rub: No Domingo's crunch: No - Abdominal Inspection: Normal Distension: No distension Bowel sounds: Normal - Back Back: Normal - Extremities General upper extremity: Normal inspection General lower extremity: Edema, Other - Right leg with +2 pitting edema but no cellulitis and left leg with +2 pitting edema with stasis dermatitis ;With stasis dermatitis of left lower extremity from left foot to left mid woodson with erythema to his dorsal foot and distal one third of woodson with expression of serous fluid from distal tibia clear Course - Vital Signs Vital signs: Temp Pulse Resp BP Pulse Ox 98.3 F 92 19 155/56 H 99 01/14/20 17:31 01/14/20 13:19 01/14/20 18:31 01/14/20 18:31 01/14/20 18:31 - Laboratory Result Diagrams: 01/14/20 16:30 01/14/20 16:30 Laboratory results interpreted by me: 01/14/20 01/14/20 01/14/20 16:30 16:30 16:30 Hgb 11.6 L Hct 35.9 L MCV 77 L MCH 24.9 L RDW 17.9 H Calcium 11.0 H NT-Pro-B Natriuret Pep 131 H - Diagnostic Test Radiology reviewed: Reports reviewed - EKG Interpretation by Me EKG shows normal: Sinus rhythm Critical Care Note - Critical Care Note Total time excluding time spent on procedures (mins): 90 Comments: I discussed the patient's laboratory findings and chest x-ray with the patient; Discharge - Discharge Clinical Impression: Morbid obesity CHF (congestive heart failure) Qualifiers: Heart failure type: unspecified Heart failure chronicity: unspecified Qualified Code(s): I50.9 - Heart failure, unspecified Stasis dermatitis Qualifiers: Laterality: left Qualified Code(s): I87.2 - Venous insufficiency (chronic) (peripheral) Cellulitis Qualifiers: Site of cellulitis: extremity Site of cellulitis of extremity: lower extremity Laterality: left Qualified Code(s): L03.116 - Cellulitis of left lower limb Disposition: HOME, SELF-CARE Referrals: DESMOND COLORADO MD [Primary Care Provider] - Follow up as needed
[2020-01-14] MEDS ORDERED: BUMETANIDE INJ/PF 1 MG/4 ML SDV IV ONE (17:48)
[2020-01-14] MEDS ORDERED: CLONIDINE HCL 0.2 MG TABLET PO ONE (17:50)
[2020-01-14] MEDS ORDERED: CEFTRIAXONE 1 GM/D5W RTU 1 GM/50 ML RTUPB IV SCH (18:00)
[2020-01-14] MEDS ORDERED: CALAMINE/ZINC OXIDE LOTION 177 ML/BOTTLE ONE (20:42)
[2020-01-14 21:04] VITALS: BP 149/77
== END 2020-01-14 21:15 | disposition home or self-care (01) ==
LOC: ER 12:59
DX: E66.01 Morbid (severe) obesity due to excess calories (principal); L03.116 Cellulitis of left lower limb; I87.2 Venous insufficiency (chronic) (peripheral); I50.9 Heart failure, unspecified; I11.0 Hypertensive heart disease with heart failure; I48.91 Unspecified atrial fibrillation; R07.9 Chest pain, unspecified; E78.00 Pure hypercholesterolemia, unspecified; Z96.642 Presence of left artificial hip joint
CPT/HCPCS: 93005; 99291; 99292; 96375; 96365; 36415; 85025; 80053; 84484; 83880; 71046; 93010; J3490; A9270 ×2; J0696

== ENCOUNTER 2020-01-17 08:10 | Emergency (ER) | payer MEDICARE, MEDICAID ==
[2020-01-17] MEDS ORDERED: VANCOMYCIN HCL INJ 1000 MG VIAL IV ONE (08:53)
[2020-01-17] MEDS ORDERED: PIPERACILLIN/TAZOBACTAM 3.375 GM VIAL IV ONE (08:53)
[2020-01-17] MEDS ORDERED: KETOROLAC TROMETHAMINE INJ/PF 30 MG/1 ML SDV IV ONE (09:29)
[2020-01-17 09:34] LABS: ABSOLUTE EOSINOPHILS # (AUTO) 0.1 10^3/uL (0.0-0.6); ABSOLUTE LYMPHOCYTES (AUTO) 0.9 10^3/uL (0.5-4.7); ABSOLUTE MONOCYTES (AUTO) 0.2 10^3/uL (0.1-1.4); ABSOLUTE NEUT (AUTO) 2.4 10^3/uL (1.7-8.2); BASOPHILS % (AUTO) 0.6 % (0-2); EOSINOPHILS % (AUTO) 1.9 % (0-6); HEMATOCRIT 35.4 % (37.9-51.0); HEMOGLOBIN 11.3 g/dL (13.5-17.0); LYMPHOCYTES % (AUTO) 25.4 % (13-45); MEAN CORPUSCULAR HEMOGLOBIN 24.4 pg (27.0-33.4); MEAN CORPUSCULAR HGB CONC 31.8 g/dL (32.0-36.0); MEAN CORPUSCULAR VOLUME 77 fl (80-97); MONOCYTES % (AUTO) 6.6 % (3-13); PLATELET COUNT 209 10^3/uL (150-450); RED BLOOD COUNT 4.62 10^6/uL (4.35-5.55); RED CELL DISTRIBUTION WIDTH 17.7 % (11.5-14.0); SEGMENTED NEUTROPHILS % (AUTO) 65.5 % (42-78); TOTAL CELLS COUNTED % (AUTO) 100 %; WHITE BLOOD COUNT 3.7 10^3/uL (4.0-10.5)
[2020-01-17 09:59] LABS: ALBUMIN 3.8 g/dL (3.5-5.0); ALKALINE PHOSPHATASE 90 U/L (38-126); ANION GAP 7 (5-19); ASPARTATE AMINO TRANSFERASE 20 U/L (17-59); BILIRUBIN,TOTAL 0.4 mg/dL (0.2-1.3); BLOOD UREA NITROGEN 18 mg/dL (7-20); CALCIUM 10.6 mg/dL (8.4-10.2); CARBON DIOXIDE 31 mmol/L (22-30); CHLORIDE 101 mmol/L (98-107); GLUCOSE 91 mg/dL (75-110); POTASSIUM 4.3 mmol/L (3.6-5.0); TOTAL PROTEIN 7.3 g/dL (6.3-8.2)
[2020-01-17 10:46] LABS: APPEARANCE,URINE CLEAR; BILIRUBIN,URINE NEGATIVE (NEGATIVE); COLOR,URINE YELLOW; GLUCOSE, URINE NEGATIVE (NEGATIVE); KETONES,URINE NEGATIVE (NEGATIVE); LEUKOCYTE ESTERASE,URINE NEGATIVE (NEGATIVE); NITRITE,URINE NEGATIVE (NEGATIVE); PROTEIN,URINE NEGATIVE (NEGATIVE); URINE SPECIFIC GRAVITY 1.015; UROBILINOGEN,URINE NEGATIVE mg/dL (<2.0)
--- NOTE | 2020-01-17 10:48 | ER Document Report ---
ED Skin Rash/Insect Bite/Abscs - General Chief Complaint: Skin Problem Stated Complaint: FEVER/CHILLS/DIARRHEA Time Seen by Provider: 01/17/20 08:36 Primary Care Provider: DESMOND COLORADO MD [Primary Care Provider] - Follow up as needed Mode of Arrival: Ambulatory Information source: Patient Notes: 54-year-old man presents to the emergency department with a history of cellulitis involving the left lower extremity. He was seen by his primary care doctor treated with Keflex and his symptoms continue to increased. He notes increasing redness pain and weeping from the lower extremity. He denies a history of diabetes, states he is borderline. He also denies fever, nausea vomiting or associated GI symptoms. He is Linezolid and states that his symptoms are not improving. TRAVEL OUTSIDE OF THE [place] IN LAST 30 DAYS: No - Related Data Allergies/Adverse Reactions: No Known Allergies Allergy (Verified 01/17/20 08:22) Past Medical History - Social History Smoking Status: Never Smoker Frequency of alcohol use: None Drug Abuse: Marijuana Family History: CAD - Mother from [place] at 57, Other - Patient reports he does not talk with his family much estranged Patient has suicidal ideation: No Patient has homicidal ideation: No - Past Medical History Cardiac Medical History: Reports: Hx Atrial Fibrillation, Hx Congestive Heart Failure, Hx Hypercholesterolemia, Hx Hypertension Pulmonary Medical History: Reports: Hx Pneumonia Psychiatric Medical History: Reports: Hx Depression Past Surgical History: Reports: Hx Orthopedic Surgery - Total left hip replacement, bone graft left knee, Hx Tonsillectomy Review of Systems - Review of Systems Notes: Constitutional: Negative for fever. HENT: Negative for sore throat. Eyes: Negative for visual changes. Cardiovascular: Negative for chest pain. Respiratory: Negative for shortness of breath. Gastrointestinal: Negative for abdominal pain, vomiting or diarrhea. Genitourinary: Negative for dysuria. Musculoskeletal: + Left lower extremity cellulitis Skin: Negative for rash. Neurological: Negative for headaches, weakness or numbness. 10 point ROS negative except as marked above and in HPI. Physical Exam - Vital signs Vitals: Temp Pulse Resp BP Pulse Ox 97.5 F 94 20 130/61 H 95 01/17/20 08:15 01/17/20 08:15 01/17/20 08:15 01/17/20 08:15 01/17/20 08:15 - Notes Notes: PHYSICAL EXAMINATION: Physical Exam: General: Well-nourished well-developed in no acute distress HEENT: NC/AT, pupils equal round and reactive to light, MM moist,nares clear, oropharynx clear, airway patent Neck: supple, no adenopathy, no masses. Good range of motion Lungs: clear, no wheezing, no rales no rhonchi CVS: Regular rate and rhythm no murmur gallop or rub Abdomen: Soft, active, nontender, no masses, no hepatosplenomegaly Ext: Left lower extremity with erythema and thickening of the skin, weeping fluid. + Tenderness to palpation with increased warmth. Neuro: Alert and responsive, moving all 4 extremities on command, cranial nerves intact, no focal findings Skin: Intact no open lesions, no rash PSYCH: Normal mood, normal affect. Course - Re-evaluation Re-evalutation: 01/17/20 11:25 Patient presenting with a swollen right leg with weeping and erythema pain. Failed outpatient Keflex and Linezoild. Dr. Colorado was contacted and was adamant that this is not his patient, he suggested that the hospitalist be contacted. was called and stated he will see the patient in the emergency department. 01/17/20 13:12 Patient was seen by the hospitalist Dr. Licea and was told that he could be discharged home since he is only been on the Linezoild for 3 days. I will add doxycycline to his medications. - Vital Signs Vital signs: Temp Pulse Resp BP Pulse Ox 97.5 F 94 20 130/61 H 95 01/17/20 08:15 01/17/20 08:15 01/17/20 08:15 01/17/20 08:15 01/17/20 08:15 - Laboratory Result Diagrams: 01/17/20 09:05 01/17/20 09:05 Laboratory results interpreted by me: 01/17/20 01/17/20 09:05 09:05 WBC 3.7 L Hgb 11.3 L Hct 35.4 L MCV 77 L MCH 24.4 L MCHC 31.8 L RDW 17.7 H Carbon Dioxide 31 H Calcium 10.6 H Discharge - Discharge Clinical Impression: Cellulitis of right lower leg, Morbid obesity Condition: Good Disposition: HOME, SELF-CARE Instructions: Cellulitis ([facility]) Additional Instructions: HOME CARE INSTRUCTIONS & INFORMATION: Thank you for choosing us for your medical needs. We hope you're satisfied with the care you received. After you leave, you must properly care for your problem and, at the same time, observe its progress. Any condition can change. Some illnesses can change rapidly over hours or days. If your condition worsens, return to the Emergency Department or see your physician promptly. ABOUT YOUR X-RAYS AND EKG'S: If you had an EKG or X-rays taken, they have been read by the Emergency Physician. The X-rays and EKG's will also be read by a Radiologist or Strategic Partner Development Manager within 24 hours. If discrepancies are noted, you will be notified by telephone. Please be certain the ED has a correct telephone number & address where you can be reached. Also, realize that some fractures or abnormalities do not show up on initial X-rays. If your symptoms continue, see your physician. ABOUT YOUR LABORATORY TEST: If you had laboratory tests, the results have been reviewed by the Emergency Physician. Some test results (for example cultures) may not be available for several days. You will be contacted if any test result shows you need additional treatment. Please be certain the ED has a correct telephone number and address where you can be reached. ABOUT YOUR MEDICATIONS: You will receive instructions on how to take your medicine on the prescription label you receive. Additional information may be provided by the Pharmacy. If you have questions afterwards, call the ED for clarification or further instructions. Some prescribed medications may cause drowsiness. Do not perform tasks such as driving a car or operating machinery without consulting your Pharmacist. If you feel you need a refill of pain medication, your condition will need re-evaluation. Please do not call for a refill of any medication. ABOUT YOUR SIGNATURE: Signature of this document acknowledges to followin. Understanding that you received emergency treatment and that you may be released before al medical problems are known or treated. Please be certain the ED has a correct phone number & address where you can be reached. 2. Acknowledgement that you will arrange for follow-up care as recommended. 3. Authorization for the Emergency Physician to provide information to your follow-up Physician in order to maximize your care. AT ANY TIME, IF YOUR SYMPTOMS CHANGE SIGNIFICANTLY OR WORSEN OR YOU DEVELOP NEW SYMPTOMS, RETURN TO THE EMERGENCY DEPARTMENT IMMEDIATELY FOR RE-EVALUATION. OUR GOAL IS TO PROVIDE EXCELLENT MEDICAL CARE! WE HOPE THAT WE HAVE MET YOUR EXPECTATIONS DURING YOUR EMERGENCY DEPARTMENT VISIT AND THAT YOU FEEL YOU HAVE RECEIVED EXCELLENT CARE! Prescriptions: Doxycycline Monohydrate 100 mg PO BID #20 capsule Referrals: DESMOND COLORADO MD [Primary Care Provider] - Follow up as needed
--- NOTE | 2020-01-17 12:50 | PDOC CONSULTATION ---
Consultation Consult Date: 01/17/20 Attending physician:: ELIAZAR CARY Provider Consulted: IBRAHIMA Olvera Consult reason:: Cellulitis evaluation History of Present Illness Admission Date/PCP: DESMOND DUMONT MD Patient complains of: "cellulitis", diarrhea, chills History of Present Illness: EMMA BUSTAMANTE is a 54 year old male with a history of chronic venous insufficiency who presents to the hospital complaining and he feels that he has cellulitis in his left leg. He also complains of feeling some chills yesterday. In the emergency room, blood work reveals no evidence of leukocytosis with WBC of 3.7 and completely normal vital signs without evidence of fever. Notably patient has had some recent hospital visits as well. ER consult hospitalist service for potential admission for cellulitis. Informed that patient is not yet fully established with Dr. Dumont's office. On examining patient, patient states that his legs have always been swollen and occasionally weeps but noted some increasing redness in the left leg at the end of last week. States that he saw Dr. Dumont in the office on Friday and was given a prescription of Lasix and an antibiotic that starts with an L. He shows the prescription bottle which is linezolid which is what was prescribed to him upon recent discharge after treatment of pneumonia last month. He states that he has just started taking the linezolid on Friday and has taken only 3 pills. Patient denies any shortness of breath, chest pain, dizziness, lightheadedness. States that [facility]. Past Medical History Cardiac Medical History: Reports: Atrial Fibrillation, Hyperlipidema, Hypertension Pulmonary Medical History: Reports: Pneumonia Psychiatric Medical History: Reports: Depression Past Surgical History Past Surgical History: Reports: Orthopedic Surgery - Total left hip replacement, bone graft left knee, Tonsillectomy Social History Smoking Status: Never Smoker Frequency of Alcohol Use: None Hx Recreational Drug Use: Yes Drugs: Cocaine, Marijuana Family History Family History: CAD - Mother from [place] at 57, Other - Patient reports he does not talk with his family much estranged Parental Family History Reviewed: Yes Children Family History Reviewed: NA Sibling(s) Family History Reviewed.: NA Medication/Allergy Home Medications: Doxepin HCl [Sinequan 25 mg Capsule] 25 mg PO QHS #30 capsule 11/30/19 Rivaroxaban [Xarelto] 20 mg PO DAILY #30 tablet 11/30/19 Zonisamide [Zonegran 100 mg Capsule] 200 mg PO HSP PRN #60 capsule 11/30/19 Acetaminophen [Arthritis Pain Reliever] 1,300 mg PO Q12 01/03/20 Amlodipine/Valsartan/Hcthiazid [Exforge Hct 10-160-25 mg Tab] 1 each PO DAILY 01/03/20 Multivit-Min/Folic/Vit K/Lycop [One-A-Day Men's 50 Plus Tablet] 1 each PO DAILY 01/03/20 Linezolid [Zyvox 600 mg Tablet] 600 mg PO Q12 #14 tablet 01/05/20 Metoprolol Succinate [Toprol Xl 25 mg Tab.sr] 25 mg PO DAILY #30 tab.sr.24h 01/05/20 Cephalexin Monohydrate [Keflex 500 mg Capsule] 500 mg PO QID #20 capsule 01/13/20 Allergies/Adverse Reactions: No Known Allergies Allergy (Verified 01/17/20 08:22) Review of Systems Constitutional: PRESENT: chills. ABSENT: anorexia, fever(s) Cardiovascular: ABSENT: chest pain Respiratory: ABSENT: dyspnea Gastrointestinal: PRESENT: diarrhea - 3 bouts of diarrhea since Friday morning, nausea - Initially yesterday but not currently at the time of examination. ABSENT: abdominal pain, vomiting Integumentary: ABSENT: diaphoresis Neurological: ABSENT: confusion, dizziness Endocrine: ABSENT: cold intolerance Physical Exam Vital Signs: Temp Pulse Resp BP Pulse Ox 97.5 F 94 20 130/61 H 95 01/17/20 08:15 01/17/20 08:15 01/17/20 08:15 01/17/20 08:15 01/17/20 08:15 Intake & Output 01/16/20 01/17/20 01/18/20 06:59 06:59 06:59 Weight 190 kg General appearance: PRESENT: no acute distress, cooperative Neck exam: ABSENT: JVD Respiratory exam: PRESENT: clear to auscultation annita, unlabored. ABSENT: tachypnea, wheezes Cardiovascular exam: PRESENT: +S1, +S2 GI/Abdominal exam: PRESENT: soft. ABSENT: ascites, distended, firm, guarding, rebound, rigid, tenderness Extremities exam: PRESENT: pedal edema, +2 edema - Bilateral, other - Patient h as bilateral lower extremity edema on the way up to his mid woodson but does have mildly increased patch of redness in his left leg as compared to his right. Mild weeping noted of clear fluid. No fluctuance or induration noted. Does have some excoriations in his feet.. ABSENT: calf tenderness Results Laboratory Results: 01/17/20 09:05 01/17/20 09:05 01/17/20 01/17/20 01/17/20 09:05 09:05 09:05 WBC 3.7 L RBC 4.62 Hgb 11.3 L Hct 35.4 L MCV 77 L MCH 24.4 L MCHC 31.8 L RDW 17.7 H Plt Count 209 Seg Neutrophils % 65.5 Sodium 138.5 Potassium 4.3 Chloride 101 Carbon Dioxide 31 H Anion Gap 7 BUN 18 Creatinine 0.99 Est GFR ( Amer) > 60 Glucose 91 Lactic Acid 1.1 Calcium 10.6 H Total Bilirubin 0.4 AST 20 Alkaline Phosphatase 90 Total Protein 7.3 Albumin 3.8 Urine Color Urine Appearance Urine pH Ur Specific [place] Urine Protein Urine Glucose (UA) Urine Ketones Urine Blood Urine Nitrite Ur Leukocyte Esterase Urine RBC (Auto) 01/17/20 09:50 WBC RBC Hgb Hct MCV MCH MCHC RDW Plt Count Seg Neutrophils % Sodium Potassium Chloride Carbon Dioxide Anion Gap BUN Creatinine Est GFR ( Amer) Glucose Lactic Acid Calcium Total Bilirubin AST Alkaline Phosphatase Total Protein Albumin Urine Color YELLOW Urine Appearance CLEAR Urine pH 6.0 Ur Specific [place] 1.015 Urine Protein NEGATIVE Urine Glucose (UA) NEGATIVE Urine Ketones NEGATIVE Urine Blood NEGATIVE Urine Nitrite NEGATIVE Ur Leukocyte Esterase NEGATIVE Urine RBC (Auto) 2 Assessment and Plan - Diagnosis (1) Cellulitis of left lower extremity Is this a current diagnosis for this admission?: Yes (2) Chronic venous insufficiency Is this a current diagnosis for this admission?: Yes - Plan Summary Summary: Patient has chronic underlying venous insufficiency of his bilateral lower extremities and states he was prescribed Lasix by Dr. Dumont which he has. Venous doppler 1 week ago was negative for DVT. I have encouraged him to try to keep his legs elevated whenever he is seated and to wear compression stockings. Regarding cellulitis in his left lower extremity, patient just started taking his foot and is only taking 3 tablets (over the course of 1.5 days) and as such does not qualify for failed outpatient therapy at this point. Patient denies taking any other antibiotics since discharge last month. Currently, patient CBC shows no evidence of leukocytosis and vital signs are completely normal. As such, would recommend outpatient therapy with oral antibiotics for 10 days course for treatment of cellulitis. Can use Bactrim or doxycycline (or linezolid if patient has enough filled to complete a 10-day course). Patient does not require admission at this time. Discussed with ER provider. - Time Time Spent with patient: 35 or more minutes
[2020-01-17 13:30] VITALS: BP 160/82
== END 2020-01-17 13:30 | disposition home or self-care (01) ==
LOC: ER 08:10
DX: L03.115 Cellulitis of right lower limb (principal); E66.01 Morbid (severe) obesity due to excess calories; R50.9 Fever, unspecified; I48.91 Unspecified atrial fibrillation; I50.9 Heart failure, unspecified; I11.0 Hypertensive heart disease with heart failure; E78.00 Pure hypercholesterolemia, unspecified; Z96.642 Presence of left artificial hip joint
CPT/HCPCS: 99283; 96374; 36415; 87040; 87070; 87205; 83605; 85025; 87077; 80053; 81001; J1885; J3370; J2543

== ENCOUNTER 2020-01-23 08:38 | Emergency (ER) | payer MEDICARE, MEDICAID ==
--- NOTE | 2020-01-23 10:32 | ER Document Report ---
ED Extremity Problem, Lower - General Chief Complaint: Foot Injury Stated Complaint: LEFT FOOT LACERATION Time Seen by Provider: 01/23/20 10:15 Primary Care Provider: DESMOND COLORADO MD [Primary Care Provider] - Follow up as needed Information source: Patient Notes: Patient presents complaining of laceration to the bottom of the foot that is gotten infected. Patient states that area has been painful and red for the past week. Patient does report chills at home. Patient is uncertain when exactly he cut his foot but thinks it may been about 2 weeks ago. Patient states that he was being treated for cellulitis to the left lower extremity and stopped the medication a few days ago. Patient cannot give a good reason for stopping the medication. Patient is homeless and currently stays [facility] [place] [facility]. TRAVEL OUTSIDE OF THE [place] IN LAST 30 DAYS: No - HPI Patient complains to provider of: Pain, Swelling Location: Foot Occurred: Last week Onset/Duration: Worse Quality of pain: Achy Pain Level: 4 Context: Laceration. denies: Fell Associated symptoms: Painful ambulation. denies: Fever Exacerbated by: Nothing - Related Data Allergies/Adverse Reactions: No Known Allergies Allergy (Verified 01/17/20 08:22) Home Medications: Chlorthalidone 25 mg daily. Zonisaminde 100mg 2 tabs as needed at bedtime. Oxybutinin 10 mg daily. doxepin 25mg qhs. Propranolol 10mg three tablets TID. Atorvastatin 80mg daily. Xarelto 20mg daily. One A Day daily Past Medical History - General Information source: Patient - Social History Smoking Status: Never Smoker Chew tobacco use (# tins/day): No Drug Abuse: Cocaine, Marijuana Occupation: none Lives with: Homeless Family History: CAD - Mother from [place] at 57, Other - Patient reports he does not talk with his family much estranged Patient has suicidal ideation: No Patient has homicidal ideation: No - Past Medical History Cardiac Medical History: Reports: Hx Atrial Fibrillation, Hx Congestive Heart Failure, Hx Hypercholesterolemia, Hx Hypertension Pulmonary Medical History: Reports: Hx Pneumonia, Hx Sleep Apnea Psychiatric Medical History: Reports: Hx Depression Past Surgical History: Reports: Hx Adenoidectomy, Hx Orthopedic Surgery - Total left hip replacement, bone graft left knee, Hx Tonsillectomy Review of Systems - Review of Systems Constitutional: Chills, Recent illness - cellulitis. denies: Fever EENT: No symptoms reported Cardiovascular: No symptoms reported Respiratory: No symptoms reported. denies: Cough Gastrointestinal: No symptoms reported. denies: Nausea, Vomiting Genitourinary: No symptoms reported Male Genitourinary: No symptoms reported Musculoskeletal: Other - Left foot pain and swelling. denies: Back pain Skin: Change in color - Erythema to left foot Hematologic/Lymphatic: No symptoms reported Neurological/Psychological: No symptoms reported Physical Exam - Vital signs Vitals: Temp Pulse BP Pulse Ox 98.7 F 85 146/71 H 97 01/23/20 13:05 01/23/20 13:05 01/23/20 13:05 01/23/20 13:05 - General General appearance: Appears well, Alert In distress: None - HEENT Head: Normocephalic, Atraumatic Nasal: Normal Mouth/Lips: Normal Neck: Normal, Supple - Respiratory Respiratory status: No respiratory distress Chest status: Nontender Breath sounds: Normal - Cardiovascular Rhythm: Regular Heart sounds: S1 appreciated, S2 appreciated - Abdominal Inspection: Morbidly Obese Distension: No distension Tenderness: Nontender - Back Back: Normal, Nontender - Extremities General upper extremity: Normal inspection, Normal strength General lower extremity: Tender - Left foot tenderness with edema Foot: Tender - Generalized tenderness to left foot, 4 cm laceration to plantar surface of left foot, Edema, Laceration. No: Ecchymosis Notes: Patient with scattered erythematous areas to dorsum of left foot and involving left great toe and left fourth toe. Peeling skin noted to medial aspect of left heel area - Neurological Neuro grossly intact: Yes Cognition: Normal Jose Coma Scale Eye Opening: Spontaneous Victor Coma Scale Verbal: Oriented Victor Coma Scale Motor: Obeys Commands Jose Coma Scale Total: 15 - Psychological Associated symptoms: Normal affect, Normal mood - Skin Skin Temperature: Warm Skin Moisture: Dry Skin Color: Erythema - Left foot Skin irregularity: Laceration - Plantar surface of left foot Course - Re-evaluation Re-evalutation: 01/23/20 13:[address] Perez, Dr. Perez to bedside for examination. Recommends consultation with hospitalist for admission for cellulitis at this time. Call placed to Dr. Drummond, no answer with phone call. 01/23/20 13:21 Consulted with DINO hernandez who agrees to come and evaluate patient 01/23/20 15:20 Spoke with DINO hernandez who states that he did come and evaluate patient and will be discharging at this time. He states that he will extend his course of linezolid for an additional 5 more days beyond what he already has in his present bottle. 01/23/20 15:22 - Vital Signs Vital signs: Temp Pulse Resp BP Pulse Ox 98.7 F 85 146/71 H 97 01/23/20 13:05 01/23/20 13:05 01/23/20 13:05 01/23/20 13:05 - Laboratory Result Diagrams: 01/23/20 11:05 01/23/20 11:05 Laboratory results interpreted by me: 01/23/20 01/23/20 11:05 11:05 WBC 3.1 L Hgb 11.6 L Hct 35.9 L MCV 76 L MCH 24.7 L RDW 17.7 H Potassium 3.5 L Calcium 10.8 H Labs- Entire Visit 01/23/20 01/23/20 11:05 11:05 WBC 3.1 L RBC 4.72 Hgb 11.6 L Hct 35.9 L MCV 76 L MCH 24.7 L MCHC 32.4 RDW 17.7 H Plt Count 210 Lymph % (Auto) 27.5 Perkins % (Auto) 10.9 Eos % (Auto) 1.5 Baso % (Auto) 1.0 Absolute Neuts (auto) 1.9 Absolute Lymphs (auto) 0.9 Absolute Monos (auto) 0.3 Absolute Eos (auto) 0.0 Absolute Basos (auto) 0.0 Seg Neutrophils % 59.1 Sodium 139.5 Potassium 3.5 L Chloride 102 Carbon Dioxide 27 Anion Gap 11 BUN 14 Creatinine 0.70 Est GFR ( Amer) > 60 Est GFR (MDRD) Non-Af > 60 Glucose 100 Calcium 10.8 H Total Bilirubin 0.5 Direct Bilirubin 0.3 Neonat Total Bilirubin Not Reportable Neonat Direct Bilirubin Not Reportable Neonat Indirect Bili Not Reportable AST 26 ALT 19 Alkaline Phosphatase 118 Total Protein 7.9 Albumin 4.0 - Diagnostic Test Radiology reviewed: Reports reviewed Discharge - Discharge Clinical Impression: Morbid obesity, Left foot pain, Venous insufficiency Condition: Stable Disposition: HOME, SELF-CARE Instructions: Antibiotic Therapy ([facility]), Elevation & Warmth ([facility]) Additional Instructions: Follow-up with your primary doctor for recheck, call tomorrow for an appointment Take your medication as prescribed Return immediately for any new or worse symptoms Referrals: DESMOND COLORADO MD [Primary Care Provider] - Follow up tomorrow
[2020-01-23] MEDS ORDERED: DIPH/PERTUSS(ACELL)/TETANUS VAC/PF 0.5 ML SYR (>=10YO) IM ONE (10:35)
[2020-01-23] MEDS ORDERED: VANCOMYCIN HCL INJ 1000 MG VIAL IV ONE (10:37)
--- NOTE | 2020-01-23 11:07 | RADIOLOGY REPORT (SQ) ---
EXAM DESCRIPTION: FOOT LEFT COMPLETE COMPLETED DATE/TIME: 01/23/2020 10:47 am REASON FOR STUDY: foot lac COMPARISON: None. NUMBER OF VIEWS: Three views. TECHNIQUE: AP, lateral and oblique radiographic images acquired of the left foot. LIMITATIONS: None. FINDINGS: MINERALIZATION: Normal. BONES: No acute fracture. 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 JOINTS: No effusions. SOFT TISSUES: No soft tissue swelling. No foreign body. OTHER: No other significant finding. IMPRESSION: No foreign body. Chronic changes of the midfoot related to degenerative changes and ost eo necrosis. TECHNICAL DOCUMENTATION: JOB ID: [id number] 2010 [employer]- All Rights Reserved Reading location - IP/workstation name: [email or web address]
[2020-01-23] MEDS ORDERED: HYDROCODONE/ACETAMINOPHEN 5-325 MG TABLET PO ONE (11:22)
[2020-01-23 11:37] LABS: ABSOLUTE LYMPHOCYTES (AUTO) 0.9 10^3/uL (0.5-4.7); ABSOLUTE MONOCYTES (AUTO) 0.3 10^3/uL (0.1-1.4); ABSOLUTE NEUT (AUTO) 1.9 10^3/uL (1.7-8.2); EOSINOPHILS % (AUTO) 1.5 % (0-6); HEMATOCRIT 35.9 % (37.9-51.0); HEMOGLOBIN 11.6 g/dL (13.5-17.0); LYMPHOCYTES % (AUTO) 27.5 % (13-45); MEAN CORPUSCULAR HEMOGLOBIN 24.7 pg (27.0-33.4); MEAN CORPUSCULAR HGB CONC 32.4 g/dL (32.0-36.0); MEAN CORPUSCULAR VOLUME 76 fl (80-97); MONOCYTES % (AUTO) 10.9 % (3-13); PLATELET COUNT 210 10^3/uL (150-450); RED BLOOD COUNT 4.72 10^6/uL (4.35-5.55); RED CELL DISTRIBUTION WIDTH 17.7 % (11.5-14.0); SEGMENTED NEUTROPHILS % (AUTO) 59.1 % (42-78); TOTAL CELLS COUNTED % (AUTO) 100 %; WHITE BLOOD COUNT 3.1 10^3/uL (4.0-10.5)
[2020-01-23 12:08] LABS: ALKALINE PHOSPHATASE 118 U/L (38-126); ANION GAP 11 (5-19); ASPARTATE AMINO TRANSFERASE 26 U/L (17-59); BILIRUBIN,DIRECT 0.3 mg/dL (0.0-0.4); BILIRUBIN,TOTAL 0.5 mg/dL (0.2-1.3); BLOOD UREA NITROGEN 14 mg/dL (7-20); CALCIUM 10.8 mg/dL (8.4-10.2); CARBON DIOXIDE 27 mmol/L (22-30); CHLORIDE 102 mmol/L (98-107); GLUCOSE 100 mg/dL (75-110); POTASSIUM 3.5 mmol/L (3.6-5.0); TOTAL PROTEIN 7.9 g/dL (6.3-8.2)
[2020-01-23 13:08] VITALS: BP 146/71
[2020-01-23] MEDS ORDERED: PIPERACILLIN/TAZOBACTAM 3.375 GM VIAL IV ONE (13:11)
--- NOTE | 2020-01-23 14:08 | PDOC CONSULTATION ---
Consultation Consult Date: 01/23/20 Attending physician:: LIZZY GARNICA Provider Consulted: PERNELL ANNE JR Consult reason:: Cellulitis left foot History of Present Illness Admission Date/PCP: DESMOND COLORADO MD History of Present Illness: EMMA BUSTAMANTE is a 54 year old male who is very unfortunate as he is currently living in the homeless snf.. Patient's medical chart was reviewed quite thoroughly prior to seeing the patient. Moved down here from [facility] sometime in October to be with "friends".. States that turned out bad and he is now living in a homeless snf.. Patient has been in the emergency room here on multiple visits for multiple complaints. Reason that the hospitalist are consulted today is because of a possible cellulitis of the left foot. I do not think patient has cellulitis of the left foot or the left lower extremity, I think he has chronic venous insufficiency with poor hygiene in the history of a prior laceration to the sole of the left foot. Patient has had 2 separate x-rays of the left foot both showing no sign of osteomyelitis or foreign body. Patient has had multiple labs drawn important, most importantly his WBCs which go all the way back almost 2 weeks now, with all of them being normal and in fact today WBCs are 3.1, 6 days ago it was 3.7, 11 days ago it was 5.7 and so on. Patient was prescribed Linezolid 600 mg and there are, proximately 10 pills left with a prescription or 5 days. Patient admits to not taking the prescription and also states he does not know if the medication is working or not. Patient is asking for pain medication as well as a "food tray". Past Medical History Cardiac Medical History: Reports: Atrial Fibrillation, Congestive Heart Failure, Hyperlipidema, Hypertension Pulmonary Medical History: Reports: Pneumonia Psychiatric Medical History: Reports: Depression Past Surgical History Past Surgical History: Reports: Orthopedic Surgery - Total left hip replacement, bone graft left knee, Tonsillectomy Social History Smoking Status: Never Smoker Electronic Cigarette use?: No Frequency of Alcohol Use: None Hx Recreational Drug Use: Yes Drugs: Cocaine, Marijuana - Advance Directive Resuscitation Status: Full Code Family History Family History: CAD - Mother from [place] at 57, Other - Patient reports he does not talk with his family much estranged Parental Family History Reviewed: No Children Family History Reviewed: No Sibling(s) Family History Reviewed.: No Medication/Allergy Home Medications: Doxepin HCl [Sinequan 25 mg Capsule] 25 mg PO QHS #30 capsule 11/30/19 Rivaroxaban [Xarelto] 20 mg PO DAILY #30 tablet 11/30/19 Zonisamide [Zonegran 100 mg Capsule] 200 mg PO HSP PRN #60 capsule 11/30/19 Acetaminophen [Arthritis Pain Reliever] 1,300 mg PO Q12 01/03/20 Amlodipine/Valsartan/Hcthiazid [Exforge Hct 10-160-25 mg Tab] 1 each PO DAILY 01/03/20 Multivit-Min/Folic/Vit K/Lycop [One-A-Day Men's 50 Plus Tablet] 1 each PO DAILY 01/03/20 Linezolid [Zyvox 600 mg Tablet] 600 mg PO Q12 #14 tablet 01/05/20 Metoprolol Succinate [Toprol Xl 25 mg Tab.sr] 25 mg PO DAILY #30 tab.sr.24h Cephalexin Monohydrate [Keflex 500 mg Capsule] 500 mg PO QID #20 capsule 01/13/20 Doxycycline Monohydrate 100 mg PO BID #20 capsule 01/17/20 Allergies/Adverse Reactions: No Known Allergies Allergy (Verified 01/17/20 08:22) Review of Systems Constitutional: ABSENT: chills, fever(s), headache(s), weight gain, weight loss Cardiovascular: ABSENT: chest pain, dyspnea on exertion, edema, orthropnea, palpitations Respiratory: ABSENT: cough, hemoptysis Neurological: ABSENT: abnormal gait, abnormal speech, confusion, dizziness, focal weakness, syncope Psychiatric: ABSENT: anxiety, depression, homidical ideation, suicidal ideation Physical Exam Vital Signs: Temp Pulse Resp BP Pulse Ox 98.7 F 85 146/71 H 97 01/23/20 13:05 01/23/20 13:05 01/23/20 13:05 01/23/20 13:05 Intake & Output 01/22/20 01/23/20 01/24/20 05:59 06:59 06:59 Weight 194.2 kg General appearance: PRESENT: cooperative, disheveled, morbidly obese Respiratory exam: PRESENT: clear to auscultation annita. ABSENT: rales, rhonchi, wheezes Cardiovascular exam: PRESENT: RRR. ABSENT: diastolic murmur, rubs, systolic murmur Extremities exam: PRESENT: pedal edema, tenderness, +1 edema, other - Patient has very obvious skin changes from chronic venous insufficiency and obesity to both lower extremities Neurological exam: PRESENT: alert, awake, oriented to person, oriented to place, oriented to time, oriented to situation, CN II-XII grossly intact. ABSENT: motor sensory deficit Psychiatric exam: PRESENT: appropriate affect, normal mood. ABSENT: homicidal ideation, suicidal ideation Skin exam: PRESENT: erythema - About both lower extremities, appears to be chronic, skin tears - Patient has very fragile skin with no obvious weeping or oozing Patient has a well-healed laceration on the bottom of the foot that shows no area of redness or drainage Results Laboratory Results: 01/23/20 11:05 01/23/20 11:05 01/23/20 01/23/20 11:05 11:05 WBC 3.1 L RBC 4.72 Hgb 11.6 L Hct 35.9 L MCV 76 L MCH 24.7 L MCHC 32.4 RDW 17.7 H Plt Count 210 Seg Neutrophils % 59.1 Sodium 139.5 Potassium 3.5 L Chloride 102 Carbon Dioxide 27 Anion Gap 11 BUN 14 Creatinine 0.70 Est GFR ( Amer) > 60 Glucose 100 Calcium 10.8 H Total Bilirubin 0.5 AST 26 Alkaline Phosphatase 118 Total Protein 7.9 Albumin 4.0 Impressions: Foot X-Ray 01/23/20 10:35 IMPRESSION: No foreign body. Chronic changes of the midfoot related to degenerative changes and osteo necrosis. Assessment and Plan - Diagnosis (2) Diabetes Qualifiers: Diabetes mellitus type: type 2 Is this a current diagnosis for this admission?: Yes (3) Hypertension Qualifiers: Hypertension type: essential hypertension Qualified Code(s): I10 - Essential (primary) hypertension Is this a current diagnosis for this admission?: Yes (4) Morbid obesity Is this a current diagnosis for this admission?: Yes - Plan Summary Summary: I have reviewed all of patient's medications actually taken the bottles out of the bag and inspected all of the bottles. I have reviewed patient's medical history from the time he first presented to the emergency room in October including his psych evaluations as well as his other complaints of abdominal pain and chest pain. Pertaining to this visit in light of patient having a normal white count and this not being elevated for many days prior to today, 2 previous normal x-rays of the foot, the fact the patient has not taken his antibiotics as instructed I do not think that this would warrant admission to the hospital. Going to call the [facility] pharmacy on [address] going to call in 10 more ta blets, which will be a complete 10-day course if he takes them properly. Have instructed him and actually showed him how high he needs to keep the left leg elevated, fluid to drain. Told him to use a moist heating pad or moist towel to his foot and leg. Of asked the nursing staff to get him food prior to being discharged. I do not think that this warrants narcotic medication. I answered all the patient's questions. I have called the lab and canceled his blood cultures. Patient is medically stable to discharge - Time Time Spent with patient: 35 or more minutes
== END 2020-01-23 15:34 | disposition home or self-care (01) ==
LOC: ER 08:38
DX: S91.312A Laceration without foreign body, left foot, initial encounter (principal); L03.116 Cellulitis of left lower limb; T36.8X6A Underdosing of other systemic antibiotics, initial encounter; Z91.14 Patient's other noncompliance with medication regimen; X58.XXXA Exposure to other specified factors, initial encounter; I87.2 Venous insufficiency (chronic) (peripheral); E66.01 Morbid (severe) obesity due to excess calories; M79.672 Pain in left foot; R68.83 Chills (without fever); F32.9 Major depressive disorder, single episode, unspecified; E78.00 Pure hypercholesterolemia, unspecified; I11.0 Hypertensive heart disease with heart failure; I50.9 Heart failure, unspecified; I48.91 Unspecified atrial fibrillation; Z79.01 Long term (current) use of anticoagulants; Z79.899 Other long term (current) drug therapy; Z59.0 Homelessness
CPT/HCPCS: 99284; 90471; 96365; 96366; 96367; 36415; 85025; 80053; 73630; 90715; J3370; J2543; A9270

== ENCOUNTER 2020-03-03 18:45 | Emergency (ER) | payer MEDICARE, MEDICAID ==
[2020-03-03 19:20] LABS: HEMATOCRIT 34.2 % (37.9-51.0); HEMOGLOBIN 11.3 g/dL (13.5-17.0); MEAN CORPUSCULAR HEMOGLOBIN 24.2 pg (27.0-33.4); MEAN CORPUSCULAR HGB CONC 33.1 g/dL (32.0-36.0); MEAN CORPUSCULAR VOLUME 73 fl (80-97); PLATELET COUNT 166 10^3/uL (150-450); RED BLOOD COUNT 4.67 10^6/uL (4.35-5.55); RED CELL DISTRIBUTION WIDTH 17.9 % (11.5-14.0); WHITE BLOOD COUNT 10.2 10^3/uL (4.0-10.5)
[2020-03-03 19:36] LABS: ALKALINE PHOSPHATASE 98 U/L (38-126); ANION GAP 9 (5-19); ASPARTATE AMINO TRANSFERASE 34 U/L (17-59); BILIRUBIN,TOTAL 0.7 mg/dL (0.2-1.3); BLOOD UREA NITROGEN 17 mg/dL (7-20); CALCIUM 10.9 mg/dL (8.4-10.2); CARBON DIOXIDE 24 mmol/L (22-30); CHLORIDE 100 mmol/L (98-107); GLUCOSE 144 mg/dL (75-110); POTASSIUM 3.5 mmol/L (3.6-5.0); TOTAL PROTEIN 7.6 g/dL (6.3-8.2)
[2020-03-03 19:41] LABS: ABSOLUTE LYMPHOCYTES# (MANUAL) 0.3 10^3/uL (0.5-4.7); ABSOLUTE MONOCYTES # (MANUAL) 0.2 10^3/uL (0.1-1.4); BAND NEUTROPHILS % (MANUAL) 2 % (3-5); BASOPHILS % (MANUAL) 0 % (0-2); EOSINOPHILS % (MANUAL) 0 % (0-6); LYMPHOCYTES % (MANUAL) 3 % (13-45); MONOCYTES % (MANUAL) 2 % (3-13); SEGMENTED NEUTROPHILS % (MAN) 93 % (42-78); TOTAL CELLS COUNTED 100
[2020-03-03 19:42] LABS: HYPOCHROMASIA SLIGHT; POLYCHROMASIA SLIGHT; TOXIC GRANULATION SLIGHT
[2020-03-03 19:43] LABS: ANISOCYTOSIS 1+; OVALOCYTES SLIGHT; PLATELET COMMENT ADEQUATE; POIKILOCYTOSIS SLIGHT
[2020-03-03] MEDS ORDERED: NORMAL SALINE 1000 ML 1,000 ML IV ONE (20:30)
[2020-03-03] MEDS ORDERED: ONDANSETRON HCL INJ/PF 4 MG/2 ML SDV IV ONE (20:30)
[2020-03-03] MEDS ORDERED: ACETAMINOPHEN 325 MG TABLET PO ONE (20:32)
[2020-03-03] MEDS ORDERED: KETOROLAC TROMETHAMINE INJ/PF 30 MG/1 ML SDV IV ONE (20:33)
--- NOTE | 2020-03-03 20:33 | ER Document Report ---
ED General - General Chief Complaint: Nausea/Vomiting/Diarrhea Stated Complaint: FEVER/CHILLS/NAUSEA/VOMITING/DIAHERRA Time Seen by Provider: 03/03/20 20:06 Notes: Patient is a 54-year-old male that comes emergency department for chief complaint of sick symptoms for 1 week including cough, body aches, chills, and today he vomited once and had 3 episodes of loose stools. He denies chest pain, abdominal pain, sore throat, headache. He denies recent travel or exposures. Past medical history includes hypertension, hyperlipidemia, seizure disorder. He denies smoking, asthma, recreational drugs, alcohol. Patient came by EMS and received 975 mg of Tylenol for a fever of 100.9. TRAVEL OUTSIDE OF THE [place] IN LAST 30 DAYS: No - Related Data Allergies/Adverse Reactions: No Known Allergies Allergy (Verified 01/17/20 08:22) Past Medical History - General Information source: Patient - Social History Smoking Status: Never Smoker Chew tobacco use (# tins/day): No Drug Abuse: None Lives with: Family Family History: CAD - Mother from [place] at 57, Other - Patient reports he does not talk with his family much estranged Patient has suicidal ideation: No Patient has homicidal ideation: No - Past Medical History Cardiac Medical History: Reports: Hx Atrial Fibrillation, Hx Congestive Heart Failure, Hx Hypercholesterolemia, Hx Hypertension Pulmonary Medical History: Reports: Hx Pneumonia, Hx Sleep Apnea Psychiatric Medical History: Reports: Hx Depression Past Surgical History: Reports: Hx Adenoidectomy, Hx Orthopedic Surgery - Total left hip replacement, bone graft left knee, Hx Tonsillectomy - Immunizations Hx Diphtheria, Pertussis, Tetanus Vaccination: Yes Review of Systems - Review of Systems Constitutional: See HPI EENT: No symptoms reported Cardiovascular: No symptoms reported Respiratory: See HPI Gastrointestinal: See HPI Genitourinary: No symptoms reported Male Genitourinary: No symptoms reported Musculoskeletal: No symptoms reported Skin: No symptoms reported Hematologic/Lymphatic: No symptoms reported Neurological/Psychological: No symptoms reported Physical Exam - Vital signs Vitals: Temp Pulse Resp BP Pulse Ox 100.1 F 124 H 18 143/76 H 94 03/03/20 19:01 03/03/20 19:01 03/03/20 19:01 03/03/20 19:01 03/03/20 19:01 - Notes Notes: GENERAL: Alert, interactive, no distress HEAD: Normocephalic, atraumatic. EYES: Pupils equal, round, and reactive to light. Extraocular movements intact. ENT: Oral mucosa dry, tongue midline. Oropharynx unremarkable. Airway patent. Nares patent, sinuses non-tender, ear canals unremarkable, TM's intact. NECK: Full range of motion. Supple. Trachea midline. No lymphadenopathy. LUNGS: Clear to auscultation bilaterally, no wheezes, rales, or rhonchi. No re spiratory distress. Non-tender chest wall. Occasional cough. HEART: Regular rate and rhythm. No murmur ABDOMEN: Soft, non-tender. Non-distended. Bowel sounds present in all 4 quadrants. Midline scar suggesting umbilical hernia repair. GENITOURINARY: Deferred EXTREMITIES: Moves all 4 extremities spontaneously. No edema, normal radial and dorsalis pedis pulses bilaterally. No cyanosis. BACK: no cervical, thoracic, lumbar midline tenderness. No saddle anesthesia, normal distal neurovascular exam. Moves all extremities in full range of motion. NEUROLOGICAL: Alert and oriented x3. Normal speech. Cranial nerves II through XII grossly intact. Strength 5/5 in all extremities. PSYCH: Normal affect, normal mood. SKIN: Slightly flushed Course - Re-evaluation Re-evalutation: Patient with generalized sick symptoms including cough, body ache, vomiting, diarrhea. Symptoms have been going on for about a week. CBC nonspecific with no leukocytosis, elevation of neutrophils but patient has been vomiting. Chest x-ray is unremarkable. Chemistry is nonspecific. Influenza negative. Coronavirus test is pending. Initially patient was treated with IV fluids, Toradol, Zofran. On reevaluation patient is tolerating p.o. without any difficulty, states he feels much better, appears improved. Vital signs rechecked and unremarkable now. He is not hypoxic, he does not have respiratory distress or abnormal lung sounds, he has a soft benign abdomen, he does not have headache or meningismus. I most strongly suspect a viral illness at this point. Discussed with patient. Patient will be treated with nausea medication, discussed general symptom management, close follow-up, and return precautions at length. Patient states appreciation and agreement. Stable and well-appearing at time of discharge. - Vital Signs Vital signs: Temp Pulse Resp BP Pulse Ox 98.1 F 91 20 127/77 H 99 03/04/20 01:17 04/18/20 01:17 03/04/20 01:17 03/04/20 01:17 03/04/20 01:17 - Laboratory Result Diagrams: 03/03/20 19:05 03/03/20 19:05 Laboratory results interpreted by me: 03/03/20 03/03/20 19:05 19:05 Hgb 11.3 L Hct 34.2 L MCV 73 L MCH 24.2 L RDW 17.9 H Seg Neuts % (Manual) 93 H Band Neutrophils % 2 L Lymphocytes % (Manual) 3 L Monocytes % (Manual) 2 L Abs Neuts (Manual) 9.7 H Abs Lymphs (Manual) 0.3 L Sodium 132.7 L Potassium 3.5 L Glucose 144 H Calcium 10.9 H Discharge - Discharge Clinical Impression: Nausea vomiting and diarrhea, Cough Fever Qualifiers: Fever type: unspecified Qualified Code(s): R50.9 - Fever, unspecified Condition: Stable Disposition: HOME, SELF-CARE Additional Instructions: Your chest x-ray is normal, your work-up is reassuring. We have blood cultures and your coronavirus test still processing. You will be contacted about your coronavirus results and any concerning results otherwise. This appears to be viral and should resolve with time. Take Zofran for nausea/vomiting, start with bland food and drink plenty fluids. Take Tylenol and/or ibuprofen for fever. Symptoms should eventually resolve. Follow-up with primary care. Return if you worsen including chest pain, difficulty breathing, uncontrolled vomiting, or any other concerning or worsening symptoms. See additional instructions below. As a person under investigation for COVID-19, the [place] Department of Health and Human Services (divison on public health) advises you to adhere to the following guidance until your test results are reported to you. If your test result is positive, you will receive additional information from your provider and your local health department at that time. Remain at home until you are cleared by the health provider or public health aut horities. Keep a log of visitors to your home, notify any visitors to your home of your isolation status. If you plan to move to a new address or leave the county, notify the local health department in your County. Call your Doctor or seek care if you have an urgent medical need. Before seeking medical care, call him to get instructions from the provider before arriving at the medical office, clinic, or hospital. Notify them that you are being tested for the virus (COVID-19) so that arrangements can be made, as necessary, to prevent transmission to others in the healthcare setting. Next, notify the local health department in your county. If a medical emergency arises and you need to call 911, inform the first responders that you are being tested for the virus that causes COVID-19. Next, notify the local health department in your county. Prescriptions: Ondansetron [Zofran Odt 4 mg Tablet] 1 - 2 tab PO Q4H PRN #15 tab.rapdis PRN Reason: For Nausea/Vomiting
[2020-03-03 22:06] LABS: A TYPE INFLUENZA AG NEGATIVE (NEGATIVE); B INFLUENZA AG NEGATIVE (NEGATIVE)
--- NOTE | 2020-03-03 22:28 | RADIOLOGY REPORT (SQ) ---
EXAM DESCRIPTION: XR CHEST 1 VIEW COMPLETED DATE/TME: 03/03/2020 20:30 CLINICAL HISTORY: 54 years Male cough x1 week, chills COMPARISON: 01/11/2020 FINDINGS: The cardiomediastinal silhouette appears stable. No consolidating infiltrates or pleural effusions. No pneumothorax. IMPRESSION: No acute abnormality is identified.
[2020-03-03] MEDS ORDERED: ONDANSETRON ODT 4 MG TAB (6 TAB/ER DISP) PO PRN (22:42)
[2020-03-04 01:20] VITALS: BP 127/77
== END 2020-03-04 01:40 | disposition home or self-care (01) ==
LOC: ER 18:45
DX: R11.2 Nausea with vomiting, unspecified (principal); R19.7 Diarrhea, unspecified; R50.9 Fever, unspecified; R05 Cough; M79.10 Myalgia, unspecified site; Z20.828 Contact with and (suspected) exposure to other viral communicable diseases; E78.5 Hyperlipidemia, unspecified; G40.909 Epilepsy, unspecified, not intractable, without status epilepticus; I48.91 Unspecified atrial fibrillation; I11.0 Hypertensive heart disease with heart failure; I50.9 Heart failure, unspecified
CPT/HCPCS: 99284; 96361; 96374; 96375; 36415; 87040; 83690; 85025; 87635; 87077; 80053; 87804; 87150 ×26; 71045; J1885; J2405; J7030; A9270

== ENCOUNTER 2020-03-14 12:33 | Inpatient (IN) | payer MEDICARE, MEDICAID ==
[2020-03-14] MEDS ORDERED: VANCOMYCIN HCL INJ 1000 MG VIAL IV ONE (13:15)
[2020-03-14] MEDS ORDERED: CEFAZOLIN 2 GM/D5W RTU 2 GM/50 ML RTUPB IV ONE (13:15)
--- NOTE | 2020-03-14 13:22 | ER Document Report ---
ED Extremity Problem, Lower - General Chief Complaint: Leg Pain Stated Complaint: POSSIBLE CELLULITIS Time Seen by Provider: 03/14/20 12:49 Mode of Arrival: Ambulatory Information source: Patient Notes: 54-year-old male presented to ED for complaint of cellulitis to the right lower leg. He states he called Dr. Dumont on the phone and had a telephone visit with him concerning the cellulitis about a week ago. He states he put him on Bactrim DS and he took it for 14 days. He states this morning he could just feel his leg swelling and it is become much larger and blisters developing throughout the day. He is able to ambulate but he states it is very painful. He is afebrile. He states he does have a linton history of cellulitis in this leg in the past. He also has a history of melanoma. He has a very large swollen inflamed tender area to the right upper thigh in the groin area. Did consult with Dr. Escoto came and examined the patient due to him failing outpatient antibiotics. Will get blood urine Doppler of the leg and blood cultures. I will start him on vancomycin and Ancef and then talk to the hospitalist admission for IV antibiotics. TRAVEL OUTSIDE OF THE [place] IN LAST 30 DAYS: No - HPI Patient complains to provider of: Pain, Swelling. No: Injury Location: Leg, Thigh Occurred: Other - Cellulitis that is become much worse today Onset/Duration: Gradual, Worse Quality of pain: Sharp, Throbbing Severity: Severe Pain Level: 5 Recent injury: No Associated symptoms: Painful ambulation Exacerbated by: Hanging down, Movement, Walking Relieved by: Nothing - Related Data Allergies/Adverse Reactions: No Known Allergies Allergy (Verified 03/14/20 18:07) Past Medical History - General Information source: Patient - Social History Smoking Status: Former Smoker Frequency of alcohol use: None Drug Abuse: Marijuana Lives with: Family Family History: CAD - Mother from [place] at 57, Other - Patient reports he does not talk with his family much estranged Patient has suicidal ideation: No Patient has homicidal ideation: No - Past Medical History Cardiac Medical History: Reports: Hx Atrial Fibrillation, Hx Congestive Heart Failure, Hx Hypercholesterolemia, Hx Hypertension, Hx Peripheral Vascular Disease Pulmonary Medical History: Reports: Hx Pneumonia, Hx Sleep Apnea EENT Medical History: Reports: None Neurological Medical History: Reports: None Endocrine Medical History: Reports: Hx Diabetes Mellitus Type 2 Renal/ Medical History: Reports: None Malignancy Medical History: Reports Hx Skin Cancer - Melanoma GI Medical History: Reports: None Musculoskeletal Medical History: Reports Hx Musculoskeletal Deformity, Reports Hx Musculoskeletal Trauma Skin Medical History: Reports Hx Cellulitis Psychiatric Medical History: Reports: Hx Depression Traumatic Medical History: Reports: None Infectious Medical History: Reports: None Past Surgical History: Reports: Hx Adenoidectomy, Hx Orthopedic Surgery - Total left hip replacement, bone graft left knee second toe foot removed,, Hx Tons illectomy, Other - Bunionectomy - Immunizations Hx Diphtheria, Pertussis, Tetanus Vaccination: Yes Review of Systems - Review of Systems Constitutional: No symptoms reported EENT: No symptoms reported Cardiovascular: No symptoms reported Respiratory: No symptoms reported Gastrointestinal: No symptoms reported Genitourinary: No symptoms reported Male Genitourinary: No symptoms reported Musculoskeletal: No symptoms reported Skin: Change in color, Lumps, Other - Cellulitis to the right lower leg large swollen tender area to the right thigh Hematologic/Lymphatic: No symptoms reported Neurological/Psychological: No symptoms reported Physical Exam - Vital signs Vitals: Temp 98.0 F 03/14/20 12:43 Interpretation: Normal - General General appearance: Appears well, Alert - HEENT Head: Normocephalic, Atraumatic Eyes: Normal Pupils: PERRL - Respiratory Respiratory status: No respiratory distress Chest status: Nontender Breath sounds: Normal Chest palpation: Normal - Cardiovascular Rhythm: Regular Heart sounds: Normal auscultation Murmur: No - Abdominal Inspection: Normal Distension: No distension Bowel sounds: Normal Tenderness: Nontender Organomegaly: No organomegaly - Back Back: Normal, Nontender - Extremities General upper extremity: Normal inspection, Nontender, Normal color, Normal ROM, Normal temperature General lower extremity: Normal temperature. No: Pierce's sign Thigh: Tender, Other - Swelling erythema Calf: Tender, Other - Swelling erythema blisters cellulitis Ankle: Tender - Neurological Neuro grossly intact: Yes Cognition: Normal Orientation: AAOx4 [place] Coma Scale Eye Opening: Spontaneous Jose Coma Scale Verbal: Oriented [place] Coma Scale Motor: Obeys Commands [place] Coma Scale Total: 15 Speech: Normal Motor strength normal: LUE, RUE, LLE, RLE Sensory: Normal - Psychological Associated symptoms: Normal affect, Normal mood - Skin Skin Temperature: Warm Skin Moisture: Dry Skin Color: Normal Skin irregularity: Erythema, Rash, Tender indurated area Location of irregularity: Extremities - Right lower extremity Character of irregularity: Erythematous Irregularity with: Swelling, Tenderness, Warmth Course - Vital Signs Vital signs: Temp Pulse Resp BP Pulse Ox 97.9 F 110 H 12 139/76 H 94 03/14/20 20:30 03/14/20 20:30 03/14/20 20:30 03/14/20 20:30 03/14/20 20:30 - Laboratory Result Diagrams: 03/14/20 15:14 03/14/20 15:14 Laboratory results interpreted by me: 03/14/20 03/14/20 15:14 15:14 RBC 4.27 L Hgb 10.2 L Hct 31.3 L MCV 73 L MCH 23.9 L RDW 18.8 H Sodium 133.5 L Calcium 11.1 H ALT 55 H Total Protein 8.4 H - Diagnostic Test Radiology reviewed: Image reviewed, Reports reviewed Discharge - Discharge Clinical Impression: Cellulitis of left lower extremity Disposition: ADMITTED INPATIENT Admitting Provider: Kamini (Hospitalist) Unit Admitted: Medical Floor
--- NOTE | 2020-03-14 14:43 | RADIOLOGY REPORT (SQ) ---
EXAM DESCRIPTION: VENOUS UNILATERAL LOWER IMAGES COMPLETED DATE/TIME: 03/14/2020 2:35 pm REASON FOR STUDY: right lower extremity pain and swelling COMPARISON: 01/13/2020 TECHNIQUE: Dynamic and static rios scale and color images acquired of the right leg venous system. S elected spectral images acquired with additional compression and augmentation maneuvers. The contrala teral common femoral vein and saphenofemoral junction were also imaged. Images stored on PACS. LIMITATIONS: None. FINDINGS: COMMON FEMORAL: Normal phasicity, compression and augmentation. No visualized echogenic ma terial on rios scale. No defects on color images. FEMORAL: Normal compression and augmentation. No visualized echogenic material on rios scale. No defe cts on color images. POPLITEAL: Normal compression, augmentation. No visualized echogenic material on rios scale. No defec ts on color images. CALF VESSELS: Normal compression, augmentation. No visualized echogenic material on rios scale. No de fects on color images. GSV and SSV: Normal compression, augmentation. No visualized echogenic material on rios scale. No def ects on color images. ANY DEEP VENOUS INSUFFICIENCY: Not evaluated. ANY EVIDENCE OF POPLITEAL CYST: No. OTHER: No other significant finding. CONTRALATERAL COMMON FEMORAL VEIN AND SAPHENOFEMORAL JUNCTION: Normal phasicity, compression and augmentation. No visualized echogenic material on rios scale. No de fects on color images. IMPRESSION: NO EVIDENCE DVT OR SVT IN THE RIGHT LEG. TECHNICAL DOCUMENTATION: JOB ID: [id number] 2010 [employer]- All Rights Reserved Reading location - IP/workstation name: [email or web address]
[2020-03-14 15:08] LABS: APPEARANCE,URINE SLIGHTLY-CLOUDY; BILIRUBIN,URINE NEGATIVE (NEGATIVE); COLOR,URINE YELLOW; GLUCOSE, URINE NEGATIVE (NEGATIVE); KETONES,URINE NEGATIVE (NEGATIVE); PROTEIN,URINE NEGATIVE (NEGATIVE); URINE SPECIFIC GRAVITY 1.012; UROBILINOGEN,URINE NEGATIVE mg/dL (<2.0)
[2020-03-14] MEDS ORDERED: CEFAZOLIN SODIUM 2 GM in DEXTROSE 5%-WATER 100 ML IV ONE (15:30)
[2020-03-14 15:31] LABS: ABSOLUTE EOSINOPHILS # (AUTO) 0.1 10^3/uL (0.0-0.6); ABSOLUTE LYMPHOCYTES (AUTO) 1.4 10^3/uL (0.5-4.7); ABSOLUTE MONOCYTES (AUTO) 0.3 10^3/uL (0.1-1.4); ABSOLUTE NEUT (AUTO) 3.6 10^3/uL (1.7-8.2); BASOPHILS % (AUTO) 0.7 % (0-2); HEMATOCRIT 31.3 % (37.9-51.0); HEMOGLOBIN 10.2 g/dL (13.5-17.0); LYMPHOCYTES % (AUTO) 25.3 % (13-45); MEAN CORPUSCULAR HEMOGLOBIN 23.9 pg (27.0-33.4); MEAN CORPUSCULAR HGB CONC 32.5 g/dL (32.0-36.0); MEAN CORPUSCULAR VOLUME 73 fl (80-97); MONOCYTES % (AUTO) 5.8 % (3-13); PLATELET COUNT 361 10^3/uL (150-450); RED BLOOD COUNT 4.27 10^6/uL (4.35-5.55); RED CELL DISTRIBUTION WIDTH 18.8 % (11.5-14.0); SEGMENTED NEUTROPHILS % (AUTO) 66.2 % (42-78); TOTAL CELLS COUNTED % (AUTO) 100 %; WHITE BLOOD COUNT 5.4 10^3/uL (4.0-10.5)
[2020-03-14 15:47] LABS: ALBUMIN 3.9 g/dL (3.5-5.0); ALKALINE PHOSPHATASE 113 U/L (38-126); ANION GAP 8 (5-19); ASPARTATE AMINO TRANSFERASE 37 U/L (17-59); BILIRUBIN,DIRECT 0.1 mg/dL (0.0-0.4); BILIRUBIN,TOTAL 0.6 mg/dL (0.2-1.3); BLOOD UREA NITROGEN 18 mg/dL (7-20); CALCIUM 11.1 mg/dL (8.4-10.2); CARBON DIOXIDE 27 mmol/L (22-30); CHLORIDE 99 mmol/L (98-107); GLUCOSE 105 mg/dL (75-110); POTASSIUM 4.5 mmol/L (3.6-5.0); TOTAL PROTEIN 8.4 g/dL (6.3-8.2)
[2020-03-14] MEDS ORDERED: MORPHINE SULFATE 10 MG/ML INJ IV ONE (15:47)
[2020-03-14] MEDS ORDERED: ONDANSETRON HCL INJ/PF 4 MG/2 ML SDV IV PRN (16:23)
[2020-03-14] MEDS ORDERED: ACETAMINOPHEN 325 MG TABLET PO PRN (16:23)
[2020-03-14] MEDS ORDERED: TEMAZEPAM 7.5 MG CAPSULE PO PRN (16:23)
[2020-03-14] MEDS ORDERED: ONDANSETRON 4 MG TAB.RAPDIS PO PRN (16:23)
[2020-03-14] MEDS ORDERED: VANCOMYCIN HCL 0 MG in DEXTROSE 5%-WATER 250 ML IV NR (16:45)
--- NOTE | 2020-03-14 17:03 | PDOC H&P ---
History of Present Illness Admission Date/PCP: 03/14/20 16:32 DESMOND [place]OR[place] MD History of Present Illness: EMMA BUSTAMANTE is a 54 year old male, morbidly obese who comes in with a reportedly one-week history of right lower extremity redness and swelling. Patient has a long history of chronic lymphedema, fact 1 month ago was seen in the ER for similar problem on the left lower extremity. This evidently resolved on its own or with p.o. antibiotics. Patient has been officially released from his primary care practice with a certified registered letter. Patient was not able to tell me why he was released from the practice. Reportedly patient was given p.o. Bactrim about 2 weeks ago by his primary care provider but says his right lower extremity has not gotten any better. States that he now has a home to live in whereas a month ago he was "homeless". Patient moved down here from [place] back in October 2019. Other medical problems include morbid obesity, hypertension, hyperlipidemia, and a history of congestive heart failure. Patient denies diabetes. Patient will now be admitted to the hospital for IV antibiotics, waist heat to the right lower extremity, elevation.. Strong narcotics will not be prescribed. Venous Doppler today of the right lower extremity showed no evidence of DVT. Past Medical History Cardiac Medical History: Reports: Atrial Fibrillation, Congestive Heart Failure, Hyperlipidema, Hypertension, Peripheral Vascular Disease Pulmonary Medical History: Reports: Pneumonia, Sleep Apnea EENT Medical History: Reports: None Neurological Medical History: Reports: None Endocrine Medical History: Reports: Diabetes Mellitus Type 2 Renal/ Medical History: Reports: None Malignancy Medical History: Reports: Skin Cancer - Melanoma GI Medical History: Reports: None Psychiatric Medical History: Reports: Depression Traumatic Medical History: Reports: None Infectious Medical History: Reports: None Past Surgical History Past Surgical History: Reports: Orthopedic Surgery - Total left hip replacement, bone graft left knee second toe foot removed,, Tonsillectomy, Other - Bunionectomy Social History Smoking Status: Former Smoker Frequency of Alcohol Use: None Hx Recreational Drug Use: Yes Drugs: Cocaine, Marijuana - Advance Directive Resuscitation Status: Full Code Family History Family History: CAD - Mother from [place] at 57, Other - Patient reports he does not talk with his family much estranged Parental Family History Reviewed: No Children Family History Reviewed: No Sibling(s) Family History Reviewed.: No Medication/Allergy Home Medications: Doxepin HCl [Sinequan 25 mg Capsule] 25 mg PO QHS #30 capsule 11/30/19 Rivaroxaban [Xarelto] 20 mg PO DAILY #30 tablet 11/30/19 Zonisamide [Zonegran 100 mg Capsule] 200 mg PO HSP PRN #60 capsule 11/30/19 Acetaminophen [Arthritis Pain Reliever] 1,300 mg PO Q12 01/03/20 Amlodipine/Valsartan/Hcthiazid [Exforge Hct 10-160-25 mg Tab] 1 each PO DAILY Multivit-Min/Folic/Vit K/Lycop [One-A-Day Men's 50 Plus Tablet] 1 each PO DAILY 01/03/20 Linezolid [Zyvox 600 mg Tablet] 600 mg PO Q12 #14 tablet 01/05/20 Metoprolol Succinate [Toprol Xl 25 mg Tab.sr] 25 mg PO DAILY #30 tab.sr.24h 01/05/20 Cephalexin Monohydrate [Keflex 500 mg Capsule] 500 mg PO QID #20 capsule 01/13/20 Doxycycline Monohydrate 100 mg PO BID #20 capsule 01/17/20 Ondansetron [Zofran Odt 4 mg Tablet] 1 - 2 tab PO Q4H PRN #15 tab.rapdis 03/03/20 Allergies/Adverse Reactions: No Known Allergies Allergy (Verified 01/17/20 08:22) Review of Systems Constitutional: PRESENT: weakness Cardiovascular: ABSENT: chest pain, dyspnea on exertion, edema, orthropnea, palpitations Respiratory: ABSENT: cough, hemoptysis Integumentary: PRESENT: erythema, other - Evidence of large blister to the right gastrocnemius area. No fluid at this time as it is ruptured Neurological: ABSENT: abnormal gait, abnormal speech, confusion, dizziness, focal weakness, syncope Psychiatric: ABSENT: anxiety, depression, homidical ideation, suicidal ideation Physical Exam Vital Signs: Temp Pulse Resp BP Pulse Ox 98.0 F 109 H 20 150/87 H 98 03/14/20 12:46 03/14/20 12:46 03/14/20 12:46 03/14/20 12:46 03/14/20 12:46 Intake & Output 03/13/20 03/14/20 03/15/20 06:59 06:59 06:59 Intake Total 100 Balance 100 Weight 197.313 kg General appearance: PRESENT: no acute distress, disheveled, morbidly obese Respiratory exam: PRESENT: clear to auscultation annita. ABSENT: rales, rhonchi, wheezes Cardiovascular exam: PRESENT: RRR. ABSENT: diastolic murmur, rubs, systolic murmur Extremities exam: PRESENT: pedal edema, tenderness - Patient's right lower extremity is red, very edematous. History of chronic lymph edema but this is worse than it was 1 month ago. Ruptured bullae of the right calf, +2 edema, other - Missing his second toe on the right foot. States it was amputated about 9 months ago due to infection Neurological exam: PRESENT: alert, awake, oriented to person, oriented to place, oriented to time, oriented to situation, CN II-XII grossly intact. ABSENT: motor sensory deficit Psychiatric exam: PRESENT: appropriate affect, normal mood. ABSENT: homicidal ideation, suicidal ideation Results Laboratory Results: 03/14/20 15:14 03/14/20 15:14 03/14/20 03/14/20 03/14/20 14:55 15:14 15:14 WBC 5.4 RBC 4.27 L Hgb 10.2 L Hct 31.3 L MCV 73 L MCH 23.9 L MCHC 32.5 RDW 18.8 H Plt Count 361 Seg Neutrophils % 66.2 Sodium 133.5 L Potassium 4.5 Chloride 99 Carbon Dioxide 27 Anion Gap 8 BUN 18 Creatinine 0.98 Est GFR ( Amer) > 60 Glucose 105 Calcium 11.1 H Total Bilirubin 0.6 AST 37 Alkaline Phosphatase 113 Total Protein 8.4 H Albumin 3.9 Urine Color YELLOW Urine Appearance SLIGHTLY-CLOUDY Urine pH 6.0 Ur Specific [place] 1.012 Urine Protein NEGATIVE Urine Glucose (UA) NEGATIVE Urine Ketones NEGATIVE Urine Blood NEGATIVE Urine RBC (Auto) 1 Impressions: Venous Doppler Study 03/14/20 13:12 IMPRESSION: NO EVIDENCE DVT OR SVT IN THE RIGHT LEG. Assessment and Plan - Diagnosis (1) Cellulitis of leg, right Is this a current diagnosis for this admission?: Yes (2) Chronic venous insufficiency Is this a current diagnosis for this admission?: Yes (3) History of atrial fibrillation Is this a current diagnosis for this admission?: Yes (4) History of seizure disorder Is this a current diagnosis for this admission?: Yes (5) History of traumatic brain injury Is this a current diagnosis for this admission?: Yes (6) Hypertension Qualifiers: Hypertension type: essential hypertension Qualified Code(s): I10 - Essential (primary) hypertension Is this a current diagnosis for this admission?: Yes (7) Morbid obesity Is this a current diagnosis for this admission?: Yes (8) Chronic lymphedema both lower extremitie Is this a current diagnosis for this admission?: Yes - Plan Summary Summary: Patient will be admitted for IV antibiotics. Will elevate right lower extremity. K Pad to the right lower extremity. Serial lab work. - Time Time Spent with patient: 35 or more minutes
[2020-03-14] MEDS: ENOXAPARIN SODIUM INJ 40 MG/0.4 ML DISP.SYRIN SUBCUT SCH (19:00)
[2020-03-14 19:56] LABS: INTERNATIONAL RATION (INR) 1.15; PROTHROMBIN TIME 14.8 SEC (11.4-15.4)
[2020-03-14] MEDS: FAMOTIDINE 20 MG TABLET PO SCH (21:43)
[2020-03-14] MEDS: MORPHINE SULFATE 10 MG/ML INJ IV PRN (21:43)
[2020-03-15] MEDS: VANCOMYCIN HCL 1,500 MG in DEXTROSE 5%-WATER 250 ML IV SCH ×3 (01:43→18:34)
[2020-03-15] MEDS: MORPHINE SULFATE 10 MG/ML INJ IV PRN ×4 (04:45→18:18)
[2020-03-15 06:29] LABS: ABSOLUTE EOSINOPHILS # (AUTO) 0.1 10^3/uL (0.0-0.6); ABSOLUTE LYMPHOCYTES (AUTO) 1.1 10^3/uL (0.5-4.7); ABSOLUTE MONOCYTES (AUTO) 0.3 10^3/uL (0.1-1.4); ABSOLUTE NEUT (AUTO) 2.9 10^3/uL (1.7-8.2); BASOPHILS % (AUTO) 1.1 % (0-2); EOSINOPHILS % (AUTO) 1.7 % (0-6); HEMATOCRIT 30.8 % (37.9-51.0); HEMOGLOBIN 10.1 g/dL (13.5-17.0); LYMPHOCYTES % (AUTO) 24.5 % (13-45); MEAN CORPUSCULAR HEMOGLOBIN 23.8 pg (27.0-33.4); MEAN CORPUSCULAR HGB CONC 32.9 g/dL (32.0-36.0); MEAN CORPUSCULAR VOLUME 72 fl (80-97); MONOCYTES % (AUTO) 7.1 % (3-13); PLATELET COUNT 319 10^3/uL (150-450); RED BLOOD COUNT 4.26 10^6/uL (4.35-5.55); RED CELL DISTRIBUTION WIDTH 18.5 % (11.5-14.0); SEGMENTED NEUTROPHILS % (AUTO) 65.6 % (42-78); TOTAL CELLS COUNTED % (AUTO) 100 %; WHITE BLOOD COUNT 4.4 10^3/uL (4.0-10.5)
[2020-03-15 06:48] LABS: ANION GAP 8 (5-19); BLOOD UREA NITROGEN 13 mg/dL (7-20); CALCIUM 11.2 mg/dL (8.4-10.2); CARBON DIOXIDE 28 mmol/L (22-30); CHLORIDE 99 mmol/L (98-107); GLUCOSE 117 mg/dL (75-110); POTASSIUM 4.9 mmol/L (3.6-5.0)
[2020-03-15] MEDS: DOCUSATE SODIUM 100 MG CAPSULE PO SCH (09:22)
[2020-03-15] MEDS: FAMOTIDINE 20 MG TABLET PO SCH ×2 (09:22→21:22)
[2020-03-15] MEDS: ENOXAPARIN SODIUM INJ 40 MG/0.4 ML DISP.SYRIN SUBCUT SCH (09:24)
[2020-03-15] MEDS: CEFTRIAXONE 2 GM/D5W RTU 2 GM/50 ML RTUPB IV SCH (09:24)
--- NOTE | 2020-03-15 12:22 | PDOC PROGRESS REPORT ---
Subjective Progress Note for:: 03/15/20 Reason For Visit: CHRONIC LYMPHEDEMA,CELLULITIS RIGHT LOWER 03/15/2020 Admitted with a one-week history of worsening right lower extremity cellulitis. Patient has a history of chronic lymphedema to both lower extremities Physical Exam Vital Signs: Temp Pulse Resp BP Pulse Ox 98.2 F 100 19 154/77 H 91 L 03/15/20 08:19 03/15/20 08:19 03/15/20 08:19 03/15/20 08:19 03/15/20 08:19 Intake & Output 03/14/20 03/15/20 03/16/20 06:59 06:59 06:59 Intake Total 350 50 Output Total 1025 Balance -675 50 Weight 188 kg General appearance: PRESENT: no acute distress, other - Patient's right lower leg is significantly improved from yesterday Respiratory exam: PRESENT: clear to auscultation annita. ABSENT: rales, rhonchi, wheezes Cardiovascular exam: PRESENT: RRR. ABSENT: diastolic murmur, rubs, systolic murmur Neurological exam: PRESENT: alert, awake, oriented to person, oriented to place, oriented to time, oriented to situation, CN II-XII grossly intact. ABSENT: motor sensory deficit Psychiatric exam: PRESENT: appropriate affect, normal mood. ABSENT: homicidal ideation, suicidal ideation Results Laboratory Results: 03/15/20 06:07 03/15/20 06:07 03/14/20 03/14/20 03/14/20 14:55 15:14 15:14 WBC 5.4 RBC 4.27 L Hgb 10.2 L Hct 31.3 L MCV 73 L MCH 23.9 L MCHC 32.5 RDW 18.8 H Plt Count 361 Seg Neutrophils % 66.2 Sodium 133.5 L Potassium 4.5 Chloride 99 Carbon Dioxide 27 Anion Gap 8 BUN 18 Creatinine 0.98 Est GFR ( Amer) > 60 Glucose 105 Calcium 11.1 H Total Bilirubin 0.6 AST 37 Alkaline Phosphatase 113 Total Protein 8.4 H Albumin 3.9 TSH Urine Color YELLOW Urine Appearance SLIGHTLY-CLOUDY Urine pH 6.0 Ur Specific [place] 1.012 Urine Protein NEGATIVE Urine Glucose (UA) NEGATIVE Urine Ketones NEGATIVE Urine Blood NEGATIVE Urine RBC (Auto) 1 03/14/20 03/15/20 03/15/20 19:23 06:07 06:07 WBC 4.4 RBC 4.26 L Hgb 10.1 L Hct 30.8 L MCV 72 L MCH 23.8 L MCHC 32.9 RDW 18.5 H Plt Count 319 Seg Neutrophils % 65.6 Sodium 135.2 L Potassium 4.9 Chloride 99 Carbon Dioxide 28 Anion Gap 8 BUN 13 Creatinine 0.90 Est GFR ( Amer) > 60 Glucose 117 H Calcium 11.2 H Total Bilirubin AST Alkaline Phosphatase Total Protein Albumin TSH 1.71 Urine Color Urine Appearance Urine pH Ur Specific [place] Urine Protein Urine Glucose (UA) Urine Ketones Urine Blood Urine RBC (Auto) 03/14/20 19:23 NT-Pro-B Natriuret Pep 50 Impressions: Venous Doppler Study 03/14/20 13:12 IMPRESSION: NO EVIDENCE DVT OR SVT IN THE RIGHT LEG. Assessment and Plan - Diagnosis (1) Cellulitis of leg, right Is this a current diagnosis for this admission?: Yes (2) Chronic venous insufficiency Is this a current diagnosis for this admission?: Yes (3) History of atrial fibrillation Is this a current diagnosis for this admission?: Yes (4) History of seizure disorder Is this a current diagnosis for this admission?: Yes (5) History of traumatic brain injury Is this a current diagnosis for this admission?: Yes (6) Hypertension Qualifiers: Hypertension type: essential hypertension Qualified Code(s): I10 - Essential (primary) hypertension Is this a current diagnosis for this admission?: Yes (7) Morbid obesity Is this a current diagnosis for this admission?: Yes (8) Chronic lymphedema both lower extremitie Is this a current diagnosis for this admission?: Yes - Plan Summary Summary: Patient will be admitted for IV antibiotics. Will elevate right lower extremity. K Pad to the right lower extremity. Serial lab work. 03/15/2020 Temperature 97.6 pulse 96 blood pressure 112/59 O2 sat 94% on room air WBC still normal 4.4 Chemistry grossly normal Wound culture shows no growth in 1 day, blood cultures are pending Patient currently on IV vancomycin and Rocephin day #2 Right lower extremity has much less edema today much less redness Anticipate discharge in 48 hours on p.o. antibiotics Patient will need primary care provider at time of discharge, will recommend Janet Oliva - Time Time Spent with patient: 25-34 minutes
[2020-03-15] MEDS ORDERED: ONDANSETRON HCL INJ/PF 4 MG/2 ML SDV IV PRN (14:00)
[2020-03-15] MEDS ORDERED: ONDANSETRON 4 MG TAB.RAPDIS PO PRN (14:00)
[2020-03-15] MEDS ORDERED: FUROSEMIDE 20 MG TABLET PO PRN (16:03)
[2020-03-15] MEDS: RIVAROXABAN 10 MG TABLET PO SCH (18:18)
[2020-03-15] MEDS ORDERED: HYDRALAZINE HCL INJ/PF 20 MG/1 ML SDV IV PRN (18:36)
[2020-03-15] MEDS: ATORVASTATIN CALCIUM 80 MG TABLET PO SCH (21:20)
[2020-03-15] MEDS: DOXEPIN HCL 25 MG CAPSULE PO SCH (21:22)
[2020-03-15] MEDS: VENLAFAXINE HCL 25 MG TABLET PO SCH (21:22)
[2020-03-15] MEDS: ZONISAMIDE 100 MG CAPSULE PO PRN (21:23)
[2020-03-15] MEDS: OXYBUTYNIN CHLORIDE 5 MG TABLET PO SCH (21:23)
[2020-03-15] MEDS: PROPRANOLOL HCL 10 MG TABLET PO SCH (21:30)
[2020-03-15] MEDS ORDERED: VENLAFAXINE HCL 50 MG PO SCH (22:00)
[2020-03-15] MEDS ORDERED: (PENDING PHARMACY ID) (Oxybutynin Chloride [Oxybutynin Chloride Er] 10 MG) PO SCH (22:00)
[2020-03-16] MEDS: VANCOMYCIN HCL 1,500 MG in DEXTROSE 5%-WATER 250 ML IV SCH ×3 (01:50→17:33)
[2020-03-16] MEDS: PROPRANOLOL HCL 10 MG TABLET PO SCH ×3 (05:47→21:07)
[2020-03-16] MEDS: OXYCODONE-ACETAMINOPHEN 5-325 MG TABLET PO PRN ×3 (08:23→20:37)
[2020-03-16] MEDS: HYDROCHLOROTHIAZIDE 25 MG TABLET PO SCH (09:19)
[2020-03-16] MEDS: AMLODIPINE BESYLATE 10 MG TABLET PO SCH (09:20)
[2020-03-16] MEDS: DOCUSATE SODIUM 100 MG CAPSULE PO SCH (09:20)
[2020-03-16] MEDS: VALSARTAN 160 MG TABLET PO SCH (09:20)
[2020-03-16] MEDS: CEFTRIAXONE 2 GM/D5W RTU 2 GM/50 ML RTUPB IV SCH (09:21)
[2020-03-16] MEDS: FAMOTIDINE 20 MG TABLET PO SCH ×2 (09:21→21:07)
[2020-03-16] MEDS ORDERED: HCTHIAZID PO SCH (10:00)
[2020-03-16] MEDS ORDERED: AMLODIPINE PO SCH (10:00)
[2020-03-16] MEDS ORDERED: VALSARTAN PO SCH (10:00)
[2020-03-16] MEDS ORDERED: [UNRECOGNIZED DRUG - OTHER] PO SCH (10:00)
[2020-03-16] MEDS: CHLORTHALIDONE 25 MG TABLET PO SCH (10:10)
[2020-03-16] MEDS: OXYBUTYNIN CHLORIDE 5 MG TABLET PO SCH ×2 (10:11→21:07)
--- NOTE | 2020-03-16 11:29 | PDOC PROGRESS REPORT ---
Subjective Progress Note for:: 03/16/20 Reason For Visit: CHRONIC LYMPHEDEMA,CELLULITIS RIGHT LOWER 03/16/2020 Colitis right lower extremity, chronic lymphedema Physical Exam Vital Signs: Temp Pulse Resp BP Pulse Ox 97.8 F 84 18 132/85 H 94 03/16/20 06:56 03/16/20 06:56 03/16/20 06:56 03/16/20 06:56 03/16/20 06:56 Intake & Output 03/15/20 03/16/20 03/17/20 06:59 06:59 06:59 Intake Total 350 1540 300 Output Total 1025 3900 Balance -675 -2360 300 Weight 188 kg 188 kg General appearance: PRESENT: no acute distress, other - Resting comfortably Respiratory exam: PRESENT: clear to auscultation annita. ABSENT: rales, rhonchi, wheezes Cardiovascular exam: PRESENT: RRR. ABSENT: diastolic murmur, rubs, systolic murmur Extremities exam: PRESENT: tenderness, +2 edema, other - Slight redness right lower extremity, much less redness and much less edema than on admission Neurological exam: PRESENT: alert, awake, oriented to person, oriented to place, oriented to time, oriented to situation, CN II-XII grossly intact. ABSENT: motor sensory deficit Psychiatric exam: PRESENT: appropriate affect, normal mood. ABSENT: homicidal ideation, suicidal ideation Results Laboratory Results: 03/15/20 06:07 03/15/20 17:34 03/15/20 17:34 Creatinine 0.77 Est GFR ( Amer) > 60 03/14/20 17:17 Leg - Cellulitis Gram Stain - Final 03/14/20 17:17 Leg - Cellulitis Wound Culture - Final 1+ SKIN TAMERA 03/14/20 19:23 NT-Pro-B Natriuret Pep 50 Impressions: Venous Doppler Study 03/14/20 13:12 IMPRESSION: NO EVIDENCE DVT OR SVT IN THE RIGHT LEG. Assessment and Plan - Diagnosis (1) Cellulitis of leg, right Is this a current diagnosis for this admission?: Yes (2) Chronic venous insufficiency Is this a current diagnosis for this admission?: Yes (3) History of atrial fibrillation Is this a current diagnosis for this admission?: Yes (4) History of seizure disorder Is this a current diagnosis for this admission?: Yes (5) History of traumatic brain injury Is this a current diagnosis for this admission?: Yes (6) Hypertension Qualifiers: Hypertension type: essential hypertension Qualified Code(s): I10 - Essential (primary) hypertension Is this a current diagnosis for this admission?: Yes (7) Morbid obesity Is this a current diagnosis for this admission?: Yes (8) Chronic lymphedema both lower extremitie Is this a current diagnosis for this admission?: Yes - Plan Summary Summary: Patient will be admitted for IV antibiotics. Will elevate right lower extremity. K Pad to the right lower extremity. Serial lab work. 03/15/2020 Temperature 97.6 pulse 96 blood pressure 112/59 O2 sat 94% on room air WBC still normal 4.4 Chemistry grossly normal Wound culture shows no growth in 1 day, blood cultures are pending Patient currently on IV vancomycin and Rocephin day #2 Right lower extremity has much less edema today much less redness Anticipate discharge in 48 hours on p.o. antibiotics Patient will need primary care provider at time of discharge, will recommend Janet Oliva 03/16/2020 Clinically patient continues to improve less edema less redness of the right lower extremity. Temperature 97.8 pulse is 84 blood pressure stable 132/85 Oxygen saturations about 94 to 96% on room air Patient currently is on vancomycin Rocephin and continuation of his Xarelto Labs are stable white count is normal calcium is elevated but this is chronic for him albumin is also slightly high which is also chronic Blood cultures negative x24 hours wound culture negative x24 hours. I have DC'd his IV morphine today and switched him over to Percocet Patient was on p.o. Bactrim prior to coming to the hospital. She has also been on linezolid this last month for cellulitis in his left foot which cleared and looks normal today I plan to change him over to p.o. clindamycin tomorrow 600 mg 3 times daily for 10 days and discharge. I have discussed this with the patient - Time Time Spent with patient: 25-34 minutes
[2020-03-16] MEDS: RIVAROXABAN 10 MG TABLET PO SCH (17:33)
[2020-03-16] MEDS: ZONISAMIDE 100 MG CAPSULE PO PRN (21:05)
[2020-03-16] MEDS: ATORVASTATIN CALCIUM 80 MG TABLET PO SCH (21:06)
[2020-03-16] MEDS: VENLAFAXINE HCL 25 MG TABLET PO SCH (21:06)
[2020-03-16] MEDS: DOXEPIN HCL 25 MG CAPSULE PO SCH (21:07)
[2020-03-17] MEDS: VANCOMYCIN HCL 1,500 MG in DEXTROSE 5%-WATER 250 ML IV SCH ×2 (01:47→10:00)
[2020-03-17] MEDS: OXYCODONE-ACETAMINOPHEN 5-325 MG TABLET PO PRN (04:43)
[2020-03-17] MEDS: PROPRANOLOL HCL 10 MG TABLET PO SCH (06:00)
[2020-03-17] MEDS: CHLORTHALIDONE 25 MG TABLET PO SCH (09:40)
[2020-03-17] MEDS: FAMOTIDINE 20 MG TABLET PO SCH (09:40)
[2020-03-17] MEDS: DOCUSATE SODIUM 100 MG CAPSULE PO SCH (09:40)
[2020-03-17] MEDS: HYDROCHLOROTHIAZIDE 25 MG TABLET PO SCH (09:41)
[2020-03-17] MEDS: AMLODIPINE BESYLATE 10 MG TABLET PO SCH (09:41)
[2020-03-17] MEDS: OXYBUTYNIN CHLORIDE 5 MG TABLET PO SCH (09:41)
[2020-03-17] MEDS: VALSARTAN 160 MG TABLET PO SCH (09:42)
[2020-03-17] MEDS: CEFTRIAXONE 2 GM/D5W RTU 2 GM/50 ML RTUPB IV SCH (09:44)
[2020-03-17 11:10] VITALS: BP 144/69
--- NOTE | 2020-03-17 14:30 | PDOC DISCHARGE SUMMARY ---
Impression - Admit/DC Date/PCP Admission Date/Primary Care Provider: 03/14/20 16:32 Discharge Date: 03/17/20 - Discharge Diagnosis (1) Cellulitis of leg, right Is this a current diagnosis for this admission?: Yes (2) Chronic venous insufficiency Is this a current diagnosis for this admission?: Yes (3) History of atrial fibrillation Is this a current diagnosis for this admission?: Yes (4) History of seizure disorder Is this a current diagnosis for this admission?: Yes (5) History of traumatic brain injury Is this a current diagnosis for this admission?: Yes (6) Hypertension Is this a current diagnosis for this admission?: Yes (7) Morbid obesity Is this a current diagnosis for this admission?: Yes (8) Chronic lymphedema both lower extremitie Is this a current diagnosis for this admission?: Yes - Assessment Summary: Patient will be admitted for IV antibiotics. Will elevate right lower extremity. K Pad to the right lower extremity. Serial lab work. 03/15/2020 Temperature 97.6 pulse 96 blood pressure 112/59 O2 sat 94% on room air WBC still normal 4.4 Chemistry grossly normal Wound culture shows no growth in 1 day, blood cultures are pending Patient currently on IV vancomycin and Rocephin day #2 Right lower extremity has much less edema today much less redness Anticipate discharge in 48 hours on p.o. antibiotics Patient will need primary care provider at time of discharge, will recommend Janet Oliva 03/16/2020 Clinically patient continues to improve less edema less redness of the right lower extremity. Temperature 97.8 pulse is 84 blood pressure stable 132/85 Oxygen saturations about 94 to 96% on room air Patient currently is on vancomycin Rocephin and continuation of his Xarelto Labs are stable white count is normal calcium is elevated but this is chronic for him albumin is also slightly high which is also chronic Blood cultures negative x24 hours wound culture negative x24 hours. I have DC'd his IV morphine today and switched him over to Percocet Patient was on p.o. Bactrim prior to coming to the hospital. She has also been on linezolid this last month for cellulitis in his left foot which cleared and looks normal today I plan to change him over to p.o. clindamycin tomorrow 600 mg 3 times daily for 10 days and discharge. I have discussed this with the patient 03/17/2020 Blood cultures have been negative wound cultures are negative Vital signs today temperature 97.4 pulse 75 blood pressure 121/54 Oxygen saturation anywhere from 93 to 98% White count is still normal 4.4 Patient has had IV vancomycin and Rocephin since admission, day 3 now Switch patient over to clindamycin 300 mg 3 times daily for 7 days Patient has no acute redness or edema to his right lower extremity. What he has now is his chronic venous insufficiency I also wrote for Ultram 50 mg 12 tablets to use as needed for pain He is to follow-up with the nurse practitioner I wrote down her phone number in the next 5 to 7 days - Additional Information Resuscitation Status: Full Code Discharge Diet: As Tolerated Discharge Activity: Balance Activity w/Rest Prescriptions: Clindamycin HCl 300 mg PO Q8 7 Days #21 capsule Tramadol HCl [Ultram 50 mg Tablet] 50 mg PO Q6HP PRN #12 tablet PRN Reason: Home Medications: Doxepin HCl [Sinequan 25 mg Capsule] 25 mg PO QHS #30 capsule 11/30/19 Acetaminophen [Arthritis Pain Reliever] 650 mg PO DAILY 01/03/20 Amlodipine/Valsartan/Hcthiazid [Exforge Hct 10-160-25 mg Tab] 1 each PO DAILY 01/03/20 Multivit-Min/Folic/Vit K/Lycop [One-A-Day Men's 50 Plus Tablet] 1 each PO DAILY 01/03/20 Atorvastatin Calcium [Lipitor 80 mg Tablet] 80 mg PO DAILY 03/14/20 Chlorthalidone [Hygroton 25 mg Tablet] 25 mg PO DAILY 03/14/20 Furosemide [Lasix 20 mg Tablet] 20 mg PO DAILYP PRN 03/14/20 Ondansetron [Zofran Odt 4 mg Tablet] 8 mg PO Q6HP PRN 03/14/20 Oxybutynin Chloride [Oxybutynin Chloride ER] 10 mg PO QHS 03/14/20 Propranolol HCl [Inderal 10 mg Tablet] 30 mg PO Q8 03/14/20 Rivaroxaban [Xarelto] 20 mg PO QPM 03/14/20 Venlafaxine HCl 50 mg PO QHS 03/14/20 Zonisamide [Zonegran 100 mg Capsule] 200 mg PO HSP PRN 03/14/20 Acetaminophen [Tylenol 325 mg Tablet] 650 mg PO Q4HP PRN tablet 03/17/20 Clindamycin HCl 300 mg PO Q8 7 Days #21 capsule 03/17/20 Docusate Sodium [Colace 100 mg Capsule] 100 mg PO DAILY capsule 03/17/20 Famotidine [Pepcid 20 mg Tablet] 20 mg PO Q12 tablet 03/17/20 Ondansetron HCl/Pf [Zofran Inj/Pf 4 mg/2 ml Sdv] 4 mg IV Q6HP PRN vial 03/17/20 Ondansetron [Zofran Odt 4 mg Tablet] 4 mg PO Q6HP PRN tab.rapdis 03/17/20 Tramadol HCl [Ultram 50 mg Tablet] 50 mg PO Q6HP PRN #12 tablet 03/17/20 History of Present Illiness History of Present Illness: EMMA BUSTAMANTE is a 54 year old male, morbidly obese who comes in with a reportedly one-week history of right lower extremity redness and swelling. Patient has a long history of chronic lymphedema, fact 1 month ago was seen in the ER for similar problem on the left lower extremity. This evidently resolved on its own or with p.o. antibiotics. Patient has been officially released from his primary care practice with a certified registered letter. Patient was not able to tell me why he was released from the practice. Reportedly patient was given p.o. Bactrim about 2 weeks ago by his primary care provider but says his right lower extremity has not gotten any better. States that he now has a home to live in whereas a month ago he was "homeless". Patient moved down here from [place] back in October 2019. Other medical problems include morbid obesity, hypertension, hyperlipidemia, and a history of congestive heart failure. Patient denies diabetes. Patient will now be admitted to the hospital for IV antibiotics, waist heat to the right lower extremity, elevation.. Strong narcotics will not be prescribed. Venous Doppler today of the right lower extremity showed no evidence of DVT. Physical Exam Vital Signs: Temp Pulse Resp BP Pulse Ox 98.6 F 71 18 144/69 H 94 03/17/20 11:02 03/17/20 11:02 03/17/20 11:02 03/17/20 11:02 03/17/20 11:02 Intake & Output 03/16/20 03/17/20 03/18/20 06:59 06:59 06:59 Intake Total 8859 6279 Output Total 0003 0818 Balance -4324 -720 Weight 188 kg 182.3 kg Results Laboratory Results: WBC 4.4 10^3/uL (4.0-10.5) 03/15/20 06:07 RBC 4.26 10^6/uL (4.35-5.55) L 03/15/20 06:07 Hgb 10.1 g/dL (13.5-17.0) L 03/15/20 06:07 Hct 30.8 % (37.9-51.0) L 03/15/20 06:07 MCV 72 fl (80-97) L 03/15/20 06:07 MCH 23.8 pg (27.0-33.4) L 03/15/20 06:07 MCHC 32.9 g/dL (32.0-36.0) 03/15/20 06:07 RDW 18.5 % (11.5-14.0) H 03/15/20 06:07 Plt Count 319 10^3/uL (150-450) 03/15/20 06:07 Lymph % (Auto) 24.5 % (13-45) 03/15/20 06:07 [place] % (Auto) 7.1 % (3-13) 03/15/20 06:07 Eos % (Auto) 1.7 % (0-6) 03/15/20 06:07 Baso % (Auto) 1.1 % (0-2) 03/15/20 06:07 Absolute Neuts (auto) 2.9 10^3/uL (1.7-8.2) 03/15/20 06:07 Absolute Lymphs (auto) 1.1 10^3/uL (0.5-4.7) 03/15/20 06:07 Absolute Monos (auto) 0.3 10^3/uL (0.1-1.4) 03/15/20 06:07 Absolute Eos (auto) 0.1 10^3/uL (0.0-0.6) 03/15/20 06:07 Absolute Basos (auto) 0.0 10^3/uL (0.0-0.2) 03/15/20 06:07 Seg Neutrophils % 65.6 % (42-78) 03/15/20 06:07 PT 14.8 SEC (11.4-15.4) 03/14/20 19:23 INR 1.15 03/14/20 19:23 APTT 28.8 SEC (23.5-35.8) 03/15/20 06:07 Sodium 135.2 mmol/L (137-145) L 03/15/20 06:07 Potassium 4.9 mmol/L (3.6-5.0) 03/15/20 06:07 Chloride 99 mmol/L (98-107) 03/15/20 06:07 Carbon Dioxide 28 mmol/L (22-30) 03/15/20 06:07 Anion Gap 8 (5-19) 03/15/20 06:07 BUN 13 mg/dL (7-20) 03/15/20 06:07 Creatinine 0.77 mg/dL (0.52-1.25) 03/15/20 17:34 Est GFR ( Amer) > 60 (>60) 03/15/20 17:34 Est GFR (MDRD) Non-Af > 60 (>60) 03/15/20 17:34 Glucose 117 mg/dL (75-110) H 03/15/20 06:07 Calcium 11.2 mg/dL (8.4-10.2) H 03/15/20 06:07 Total Bilirubin 0.6 mg/dL (0.2-1.3) 03/14/20 15:14 Direct Bilirubin 0.1 mg/dL (0.0-0.4) 03/14/20 15:14 Neonat Total Bilirubin Not Reportable 03/14/20 15:14 Neonat Direct Bilirubin Not Reportable 03/14/20 15:14 Neonat Indirect Bili Not Reportable 03/14/20 15:14 AST 37 U/L (17-59) 03/14/20 15:14 ALT 55 U/L (<50) H 03/14/20 15:14 Alkaline Phosphatase 113 U/L (38-126) 03/14/20 15:14 NT-Pro-B Natriuret Pep 50 pg/mL (<125) 03/14/20 19:23 Total Protein 8.4 g/dL (6.3-8.2) H 03/14/20 15:14 Albumin 3.9 g/dL (3.5-5.0) 03/14/20 15:14 TSH 1.71 uIU/mL (0.47-4.68) 03/14/20 19:23 Urine Color YELLOW 03/14/20 14:55 Urine Appearance SLIGHTLY-CLOUDY 03/14/20 14:55 Urine pH 6.0 (5.0-9.0) 03/14/20 14:55 Ur Specific [place] 1.012 03/14/20 14:55 Urine Protein NEGATIVE mg/dL (NEGATIVE) 03/14/20 14:55 Urine Glucose (UA) NEGATIVE mg/dL (NEGATIVE) 03/14/20 14:55 Urine Ketones NEGATIVE mg/dL (NEGATIVE) 03/14/20 14:55 Urine Blood NEGATIVE (NEGATIVE) 03/14/20 14:55 Urine Nitrite (Reflex) NEGATIVE (NEGATIVE) 03/14/20 14:55 Urine Bilirubin NEGATIVE (NEGATIVE) 03/14/20 14:55 Urine Urobilinogen NEGATIVE mg/dL (<2.0) 03/14/20 14:55 Leukocyte Esterase Rfl NEGATIVE (NEGATIVE) 03/14/20 14:55 Urine RBC (Auto) 1 /HPF 03/14/20 14:55 Urine WBC (Reflex) < 1 /HPF 03/14/20 14:55 Squamous Epi Cells Auto <1 /HPF 03/14/20 14:55 Urine Ascorbic Acid NEGATIVE (NEGATIVE) 03/14/20 14:55 Time Trough Drawn 1734 03/15/20 17:34 Vancomycin Trough 14.0 ug/mL (5.0-20.0) 03/15/20 17:34 03/14/20 19:23 NT-Pro-B Natriuret Pep 50 Impressions: Venous Doppler Study 03/14/20 13:12 IMPRESSION: NO EVIDENCE DVT OR SVT IN THE RIGHT LEG. Stroke Is this a Stroke Patient?: No Acute Heart Failure - Is this a Heart Failure Patient?: No
== END 2020-03-17 12:40 | disposition home or self-care (01) | DRG 603 ==
LOC: ER 12:33 → EH 16:32 → 4W 17:52
PROVIDERS: ADMIT Family Medicine; ATTEND Physician Assistant
DX: L03.115 Cellulitis of right lower limb (principal); Z68.43 Body mass index [BMI] 50.0-59.9, adult; E66.01 Morbid (severe) obesity due to excess calories; I87.2 Venous insufficiency (chronic) (peripheral); I11.0 Hypertensive heart disease with heart failure; I50.9 Heart failure, unspecified; I48.91 Unspecified atrial fibrillation; E78.5 Hyperlipidemia, unspecified; G40.909 Epilepsy, unspecified, not intractable, without status epilepticus; E83.52 Hypercalcemia; R77.0 Abnormality of albumin; I73.9 Peripheral vascular disease, unspecified; Z85.820 Personal history of malignant melanoma of skin; Z87.891 Personal history of nicotine dependence; Z87.820 Personal history of traumatic brain injury; Z79.01 Long term (current) use of anticoagulants
CPT/HCPCS: 36415; 80048; 80053; 80202; 81001; 82565; 83880; 84443; 85025; 85610; 85730; 87040; 87070; 87205; 93971; 94660; 96365; 96375; 99285; J0360; J0690; J0696; J1650; J2270; J3370; J3490; J7060

== ENCOUNTER 2020-05-27 14:36 | Emergency (ER) | payer MEDICARE, MEDICAID ==
--- NOTE | 2020-05-27 14:56 | RADIOLOGY REPORT (SQ) ---
EXAM DESCRIPTION: CHEST SINGLE VIEW IMAGES COMPLETED DATE/TIME: 05/27/2020 2:48 pm REASON FOR STUDY: chest pain COMPARISON: Chest radiographs 03/03/2020 EXAM PARAMETERS: NUMBER OF VIEWS: One view. TECHNIQUE: Single frontal radiographic view of the chest acquired. RADIATION DOSE: NA LIMITATIONS: None. FINDINGS: LUNGS AND PLEURA: No opacities, masses or pneumothorax. No pleural effusion. MEDIASTINUM AND HILAR STRUCTURES: No masses. Contour normal. HEART AND VASCULAR STRUCTURES: Heart normal in size. Normal vasculature. BONES: No acute findings. HARDWARE: None in the chest. OTHER: No other significant finding. IMPRESSION: NO ACUTE RADIOGRAPHIC FINDING IN THE CHEST. TECHNICAL DOCUMENTATION: JOB ID: [id number] 2010 [employer]- All Rights Reserved Reading location - IP/workstation name: [email or web address]
[2020-05-27 15:18] LABS: ABSOLUTE EOSINOPHILS # (AUTO) 0.2 10^3/uL (0.0-0.6); ABSOLUTE LYMPHOCYTES (AUTO) 1.4 10^3/uL (0.5-4.7); ABSOLUTE MONOCYTES (AUTO) 0.4 10^3/uL (0.1-1.4); ABSOLUTE NEUT (AUTO) 3.1 10^3/uL (1.7-8.2); BASOPHILS % (AUTO) 0.8 % (0-2); EOSINOPHILS % (AUTO) 3.6 % (0-6); HEMATOCRIT 37.4 % (37.9-51.0); HEMOGLOBIN 12.3 g/dL (13.5-17.0); LYMPHOCYTES % (AUTO) 27.2 % (13-45); MEAN CORPUSCULAR HEMOGLOBIN 24.7 pg (27.0-33.4); MEAN CORPUSCULAR HGB CONC 32.8 g/dL (32.0-36.0); MEAN CORPUSCULAR VOLUME 75 fl (80-97); PLATELET COUNT 199 10^3/uL (150-450); RED BLOOD COUNT 4.98 10^6/uL (4.35-5.55); SEGMENTED NEUTROPHILS % (AUTO) 61.4 % (42-78); TOTAL CELLS COUNTED % (AUTO) 100 %; WHITE BLOOD COUNT 5.1 10^3/uL (4.0-10.5)
[2020-05-27 15:37] LABS: ALBUMIN 4.4 g/dL (3.5-5.0); ALKALINE PHOSPHATASE 103 U/L (38-126); ANION GAP 7 (5-19); ASPARTATE AMINO TRANSFERASE 28 U/L (17-59); BILIRUBIN,TOTAL 0.6 mg/dL (0.2-1.3); BLOOD UREA NITROGEN 21 mg/dL (7-20); CALCIUM 11.5 mg/dL (8.4-10.2); CARBON DIOXIDE 29 mmol/L (22-30); CHLORIDE 101 mmol/L (98-107); CREATINE KINASE 75 U/L (55-170); GLUCOSE 89 mg/dL (75-110); POTASSIUM 4.2 mmol/L (3.6-5.0); TOTAL PROTEIN 8.6 g/dL (6.3-8.2)
[2020-05-27 15:52] LABS: INTERNATIONAL RATION (INR) 1.34; PROTHROMBIN TIME 16.7 SEC (11.4-15.4)
[2020-05-27 16:01] LABS: CREATINE KINASE MB 0.68 ng/mL (<4.55)
[2020-05-27 16:05] LABS: TROPONIN I < 0.012 ng/mL
--- NOTE | 2020-05-27 16:18 | EKG REPORT ---
SEVERITY:- ABNORMAL ECG - SINUS RHYTHM EARLY PRECORDIAL TRAANSITION, CONSIDER OLD TRUE POST MS., : Confirmed by: Avery Marte MD 27-May-2020 16:16:35
[2020-05-27] MEDS ORDERED: FENTANYL CITRATE INJ/PF 100 MCG/2 ML AMPUL IV ONE (16:25)
[2020-05-27] MEDS ORDERED: ONDANSETRON HCL INJ/PF 4 MG/2 ML SDV IV ONE ×2 (16:26→19:12)
[2020-05-27] MEDS ORDERED: MORPHINE SULFATE 10 MG/ML INJ IV ONE (19:12)
--- NOTE | 2020-05-27 19:21 | ER Document Report ---
Entered by PB AMOS SCRIBE 05/27/20 1520 Acting as scribe for:COREY DONIS DO ED General - General Chief Complaint: Chest Pain Stated Complaint: CHEST PAIN Time Seen by Provider: 05/27/20 15:15 Primary Care Provider: QUINN CHOI MD [Primary Care Provider] - Follow up as needed SARAY BIRCH MD [ACTIVE PROVISIONAL STAFF] - Follow up as needed Mode of Arrival: Ambulatory Information source: Patient Notes: This 54-year-old male patient presents to the emergency department today with complaints of left-sided chest pain that radiates into his left arm. Patient states that the pain is a "stabbing" pain. Patient reports that he was walking down his driveway to get the mail when the pain began. Patient states he has n oticed that exertion makes it worse including just standing up from sitting. Patient has a headache and is nauseated as well. Patient denies vomiting, fevers, shortness of breath, or COVID-19 exposure. TRAVEL OUTSIDE OF THE [place] IN LAST 30 DAYS: No - Related Data Allergies/Adverse Reactions: No Known Allergies Allergy (Verified 05/27/20 15:45) Past Medical History - General Information source: Patient - Social History Smoking Status: Never Smoker Cigarette use (# per day): No Frequency of alcohol use: None Drug Abuse: None Lives with: Family Family History: Reviewed & Not Pertinent, CAD - Mother from [place] at 57, Other - Patient reports he does not talk with his family much estranged - Past Medical History Cardiac Medical History: Reports: Hx Atrial Fibrillation, Hx Congestive Heart Failure, Hx Hypercholesterolemia, Hx Hypertension, Hx Peripheral Vascular Disease Pulmonary Medical History: Reports: Hx Pneumonia, Hx Sleep Apnea Endocrine Medical History: Reports: Hx Diabetes Mellitus Type 2 Malignancy Medical History: Reports Hx Skin Cancer - Melanoma Musculoskeletal Medical History: Reports Hx Musculoskeletal Deformity, Reports Hx Musculoskeletal Trauma Skin Medical History: Reports Hx Cellulitis Psychiatric Medical History: Reports: Hx Depression Past Surgical History: Reports: Hx Adenoidectomy, Hx Orthopedic Surgery - Total left hip replacement, bone graft left knee second toe foot removed,, Hx Tonsillectomy, Other - Bunionectomy - Immunizations Hx Diphtheria, Pertussis, Tetanus Vaccination: Yes Review of Systems - Review of Systems Constitutional: denies: Fever EENT: No symptoms reported Cardiovascular: See HPI, Chest pain Respiratory: denies: Short of breath Gastrointestinal: See HPI, Nausea. denies: Vomiting Genitourinary: No symptoms reported Male Genitourinary: No symptoms reported Musculoskeletal: No symptoms reported Skin: No symptoms reported Hematologic/Lymphatic: No symptoms reported Neurological/Psychological: See HPI, Headaches -: Yes All other systems reviewed and negative Physical Exam - Vital signs Vitals: Pulse Ox 97 05/27/20 14:36 - Notes Notes: Physical Exam: General: Alert, appears well. HEENT: Normocephalic. Atraumatic. PERRL. Extraocular movements intact. Oropharynx clear. Neck: Supple. Non-tender. Respiratory: No respiratory distress. Clear and equal breath sounds bilaterally. Reproducible chest pain, left anterior chest wall tenderness to palpation. Cardiovascular: Regular rate and rhythm. Abdominal: Morbidly obese. Non-tender. No distension. Normal Bowel Sounds. Back: No gross abnormalities. Extremities: Moves all four extremities. Upper extremities: Normal inspection. Normal ROM. Lower extremities: Trace lower extremity edema bilaterally. Neurological: Normal cognition. AAOx4. Normal speech. Psychological: Normal affect. Normal Mood. Skin: Warm. Dry. Normal color. Course - Re-evaluation Re-evalutation: 05/27/20 19:21 MDM 54 year old male arrives with chest pain in the center of his chest today at rest. Workup here is reassuring. Pain on exam is palpable and reproducible. Despite this he does have risk factor for cad - htn, hld, and dm - borderline - and due to that 2 sets of cardiac markers were obtained. Those combined with ekg and physical exam make me feel this is likely musculoskeletal pain. He has and is taking his xarelto and doubt pe with this and he is not sob which would make this very low on the list. Additional considerations ( in to ACS and pe) were pneumothorax, cap, dyspepsia and gerd, duodenitis and pancreatitis. Most importantly he feels improved here at discharge. We will have him see cardiology in follow up. - Vital Signs Vital signs: Temp Pulse Resp BP Pulse Ox 17 145/82 H 97 05/27/20 17:04 05/27/20 17:04 05/27/20 17:04 - Laboratory Result Diagrams: 05/27/20 14:55 05/27/20 14:55 Laboratory results interpreted by me: 07/10/0605/27/20 05/27/20 14:55 14:55 14:55 Hgb 12.3 L Hct 37.4 L MCV 75 L MCH 24.7 L RDW 18.0 H PT 16.7 H Sodium 136.7 L BUN 21 H Calcium 11.5 H Total Protein 8.6 H - Diagnostic Test Radiology reviewed: Reports reviewed - EKG Interpretation by Me EKG shows normal: Sinus rhythm Rate: Normal Rhythm: NSR Voltage: No: Increased voltage - NSR NL [place] [address] elevation or depression my interpretation. Discharge - Discharge Clinical Impression: Chest wall pain Hypertension Qualifiers: Hypertension type: unspecified Qualified Code(s): I10 - Essential (primary) hypertension Condition: Stable Disposition: HOME, SELF-CARE Instructions: Aspirin (Cardiac) ([facility]), Chest Wall Pain ([facility]) Additional Instructions: Call Dr. Payne for follow up. Please return here for chest pain, shortness of breath or other problems or any other concerns. Your blood pressure was elevated a bit here. Be sure and have that rechecked. Clear liquids for 24 hours and then resume regular diet. Your calcium was a bit elevated. That can be rechecked by your primary doctor. Forms: Elevated Blood Pressure Referrals: QUINN CHOI MD [Primary Care Provider] - Follow up as needed SARAY BIRCH MD [ACTIVE PROVISIONAL STAFF] - Follow up as needed I personally performed the services described in the documentation, reviewed and edited the documentation which was dictated to the scribe in my presence, and it accurately records my words and actions.
[2020-05-27 19:55] VITALS: BP 160/105
== END 2020-05-27 20:18 | disposition home or self-care (01) ==
LOC: ER 14:36
DX: R07.89 Other chest pain (principal); I11.0 Hypertensive heart disease with heart failure; I48.91 Unspecified atrial fibrillation; I50.9 Heart failure, unspecified; E78.00 Pure hypercholesterolemia, unspecified; E11.9 Type 2 diabetes mellitus without complications; E66.01 Morbid (severe) obesity due to excess calories
CPT/HCPCS: 93005; 96376; 99284; 96374; 96375; 36415; 82553; 82550; 83690; 83735; 85025; 85610; 80053; 84484; 71045; 93010; J3010; J2270; J2405

== ENCOUNTER → 2020-06-06 | Outpatient (CLI) | payer MEDICARE, MEDICAID ==
[2020-06-06 12:53] LABS: ANION GAP 7 (5-19); BLOOD UREA NITROGEN 19 mg/dL (7-20); CALCIUM 11.4 mg/dL (8.4-10.2); CARBON DIOXIDE 30 mmol/L (22-30); CHLORIDE 100 mmol/L (98-107); GLUCOSE 113 mg/dL (75-110); POTASSIUM 4.1 mmol/L (3.6-5.0)
== END ==
LOC: OD 12:06
PROVIDERS: ATTEND Family Medicine Geriatric Medicine
DX: E83.52 Hypercalcemia (principal); Z79.899 Other long term (current) drug therapy
CPT/HCPCS: 36415; 80048; 83970

== ENCOUNTER 2020-07-03 20:11 | Emergency (ER) | payer MEDICARE, MEDICAID ==
[2020-07-03 20:41] VITALS: BP 149/78
--- NOTE | 2020-07-03 21:49 | ER Document Report ---
ED Medical Screen (RME) - General Chief Complaint: Foot Injury Stated Complaint: FOOT PAIN Time Seen by Provider: 07/03/20 21:42 Primary Care Provider: QUINN CHOI MD [Primary Care Provider] - Follow up as needed Mode of Arrival: Medic Information source: Patient Notes: 54-year-old male presented to ED for injury to the lateral aspect of the left foot. He states about 430 he twisted his foot causing severe pain. He takes Tylenol arthritis at that time. He states it is still very painful and swollen. He came by ambulance to the ED. He states he will need to take a cab to go home. He is alert oriented respirations regular nonlabored speaking in full sentences. He does have a history of seizures high blood pressure high cholesterol sleep apnea pedal edema left hip replacement cadaver bone to the right knee, right middle finger sounds back on and tonsils and adenoids as well as a bunionectomy on his feet. Patient is alert oriented respirations regular nonlabored speaking in full sentences. States he does not drink smoke or use any illicit drugs. 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 I have greeted and performed a rapid initial assessment of this patient. A comprehensive ED assessment and evaluation of the patient, analysis of test results and completion of medical decision making process will be conducted by an additional ED providers. TRAVEL OUTSIDE OF THE [place] IN LAST 30 DAYS: No - Related Data Allergies/Adverse Reactions: No Known Allergies Allergy (Verified 05/27/20 15:45) Past Medical History - Social History Frequency of alcohol use: None Drug Abuse: None - Past Medical History Cardiac Medical History: Reports: Hx Atrial Fibrillation, Hx Congestive Heart Failure, Hx Hypercholesterolemia, Hx Hypertension, Hx Peripheral Vascular Disease Denies: Hx Coronary Artery Disease, Hx Heart Attack Pulmonary Medical History: Reports: Hx Sleep Apnea Denies: Hx Asthma, Hx Bronchitis, Hx COPD, Hx Pneumonia Neurological Medical History: Reports: Hx Seizures - TRAUMATIC BRAIN INJURY 6 MONTHS AGO. Denies: Hx Cerebrovascular Accident Endocrine Medical History: Reports: Hx Diabetes Mellitus Type 2 Malignancy Medical History: Reports Hx Skin Cancer - Melanoma Musculoskeltal Medical History: Reports Hx Arthritis, Reports Hx Musculoskeletal Deformity, Reports Hx Musculoskeletal Trauma Skin Medical History: Reports Hx Cellulitis Psychiatric Medical History: Reports: Hx Depression Past Surgical History: Reports: Hx Adenoidectomy, Hx Orthopedic Surgery - Total left hip replacement, bone graft left knee second toe foot removed,, Hx Tonsillectomy, Other - Bunionectomy - Immunizations Hx Diphtheria, Pertussis, Tetanus Vaccination: Yes Physical Exam - Vital signs Vitals: Temp Pulse Resp BP Pulse Ox 98.2 F 96 16 149/78 H 97 07/03/20 20:40 07/03/20 20:40 07/03/20 20:40 07/03/20 20:40 07/03/20 20:40 Course - Vital Signs Vital signs: Temp Pulse Resp BP Pulse Ox 98.2 F 96 16 149/78 H 97 07/03/20 20:40 07/03/20 20:40 07/03/20 20:40 07/03/20 20:40 07/03/20 20:40 Doctor's Discharge - Discharge Referrals: QUINN CHOI MD [Primary Care Provider] - Follow up as needed
--- NOTE | 2020-07-03 22:23 | RADIOLOGY REPORT (SQ) ---
EXAM DESCRIPTION: XR FOOT 3 OR MORE VIEWS COMPLETED DATE/TME: 07/03/2020 21:47 CLINICAL HISTORY: 54 years, Male, Pain injury to the lateral aspect of the left foot COMPARISON: 01/23/2020 left foot NUMBER OF VIEWS: 3 TECHNIQUE: 3 views left foot LIMITATIONS: None. FINDINGS: Osteopenia. Degenerative changes throughout the foot and ankle. Small calcaneal spurs. Diffuse soft tissue swelling. Negative for acute fracture or dislocation. No soft tissue gas. Vascular calcifications. IMPRESSION: Degenerative changes with diffuse soft tissue swelling. No acute osseous abnormality copyright 2010 [employer]- All Rights Reserved
--- NOTE | 2020-07-03 22:49 | ER Document Report ---
ED General - General Chief Complaint: Foot Injury Stated Complaint: FOOT PAIN Time Seen by Provider: 07/03/20 21:42 Primary Care Provider: QUINN CHOI MD [Primary Care Provider] - Follow up as needed Mode of Arrival: Medic TRAVEL OUTSIDE OF THE [place] IN LAST 30 DAYS: No - HPI Patient complains to provider of: foot pain Notes: 54 y/o presenting to ED for evaluation of left foot pain after twisting the foot when he stepped wrong while wearing flip flops he denies falling to the ground or injuring other parts of his body no skin breaks or wounds he is able to walk but w/ pain despite the injury - Related Data Allergies/Adverse Reactions: No Known Allergies Allergy (Verified 05/27/20 15:45) Past Medical History - General Information source: Patient - Social History Smoking Status: Never Smoker Frequency of alcohol use: None Drug Abuse: None Family History: Reviewed & Not Pertinent, CAD - Mother from [place] at 57, Other - Patient reports he does not talk with his family much estranged Patient has homicidal ideation: No - Past Medical History Cardiac Medical History: Reports: Hx Atrial Fibrillation, Hx Congestive Heart Failure, Hx Hypercholesterolemia, Hx Hypertension, Hx Peripheral Vascular Disease Denies: Hx Coronary Artery Disease, Hx Heart Attack Pulmonary Medical History: Reports: Hx Sleep Apnea Denies: Hx Asthma, Hx Bronchitis, Hx COPD, Hx Pneumonia Neurological Medical History: Reports: Hx Seizures - TRAUMATIC BRAIN INJURY 6 MONTHS AGO. Denies: Hx Cerebrovascular Accident Endocrine Medical History: Reports: Hx Diabetes Mellitus Type 2 Malignancy Medical History: Reports Hx Skin Cancer - Melanoma Musculoskeletal Medical History: Reports Hx Arthritis, Reports Hx Musculoskeleta l Deformity, Reports Hx Musculoskeletal Trauma Skin Medical History: Reports Hx Cellulitis Psychiatric Medical History: Reports: Hx Depression Past Surgical History: Reports: Hx Adenoidectomy, Hx Orthopedic Surgery - Total left hip replacement, bone graft left knee second toe foot removed,, Hx Tonsillectomy, Other - Bunionectomy - Immunizations Hx Diphtheria, Pertussis, Tetanus Vaccination: Yes Review of Systems - Review of Systems Constitutional: No symptoms reported EENT: No symptoms reported Cardiovascular: No symptoms reported Respiratory: No symptoms reported Gastrointestinal: No symptoms reported Genitourinary: No symptoms reported Male Genitourinary: No symptoms reported Musculoskeletal: Joint pain Skin: No symptoms reported Hematologic/Lymphatic: No symptoms reported Neurological/Psychological: No symptoms reported Physical Exam - Vital signs Vitals: Temp Pulse Resp BP Pulse Ox 98.2 F 96 16 149/78 H 97 07/03/20 20:40 07/03/20 20:40 07/03/20 20:40 07/03/20 20:40 07/03/20 20:40 Interpretation: Normal - General General appearance: Appears well, Alert - HEENT Head: Normocephalic, Atraumatic Eyes: Normal Pupils: PERRL - Respiratory Respiratory status: No respiratory distress Chest status: Nontender Breath sounds: Normal Chest palpation: Normal - Cardiovascular Rhythm: Regular Heart sounds: Normal auscultation Murmur: No - Abdominal Inspection: Normal Distension: No distension Bowel sounds: Normal Tenderness: Nontender Organomegaly: No organomegaly - Back Back: Normal, Nontender - Extremities General upper extremity: Normal inspection, Nontender, Normal color, Normal ROM, Normal temperature General lower extremity: Normal inspection, Normal color, Normal ROM, Normal temperature, Normal weight bearing, Other - right foot is tender laterally w/o bruising or swelling. no pain in ankle. No: Pierce's sign - Neurological Neuro grossly intact: Yes Cognition: Normal Orientation: AAOx4 [place] Coma Scale Eye Opening: Spontaneous [place] Coma Scale Verbal: Oriented [place] Coma Scale Motor: Obeys Commands Jose Coma Scale Total: 15 Speech: Normal Motor strength normal: LUE, RUE, LLE, RLE Sensory: Normal - Psychological Associated symptoms: Normal affect, Normal mood - Skin Skin Temperature: Warm Skin Moisture: Dry Skin Color: Normal Course - Re-evaluation Re-evalutation: 07/03/20 22:45 xray is w/o fracture will place in velcro stirrup and have him use crutches refer to ortho - Vital Signs Vital signs: Temp Pulse Resp BP Pulse Ox 98.2 F 96 16 149/78 H 97 07/03/20 20:40 07/03/20 20:40 07/03/20 20:40 07/03/20 20:40 07/03/20 20:40 - Diagnostic Test Radiology reviewed: Image reviewed, Reports reviewed Discharge - Discharge Clinical Impression: Foot injury Qualifiers: Encounter type: initial encounter Laterality: left Qualified Code(s): S99.922A - Unspecified injury of left foot, initial encounter Condition: Stable Disposition: HOME, SELF-CARE Instructions: Ankle Stirrup Splint ([facility]), Sprained Ankle ([facility]) Additional Instructions: Your xray did not show fracture Please use immobilizer and crutches as directed Return to the ED with worsening symptoms or concerns Follow up with orthopedics as an outpatient Prescriptions: Hydrocodone/Acetaminophen [[place] 5-325 Tablet] 1 each PO Q6HP PRN #10 tablet PRN Reason: Referrals: QUINN CHOI MD [Primary Care Provider] - Follow up as needed ELMER LOPES DO [ACTIVE STAFF] - Follow up as needed
== END 2020-07-03 23:20 | disposition home or self-care (01) ==
LOC: ER 20:11
DX: S99.922A Unspecified injury of left foot, initial encounter (principal); X50.1XXA Overexertion from prolonged static or awkward postures, initial encounter; Y93.01 Activity, walking, marching and hiking; I10 Essential (primary) hypertension; E11.51 Type 2 diabetes mellitus with diabetic peripheral angiopathy without gangrene; Z85.820 Personal history of malignant melanoma of skin
CPT/HCPCS: 99283

== ENCOUNTER → 2020-07-04 | Outpatient (CLI) | payer MEDICARE, MEDICAID ==
[2020-07-04 10:40] LABS: ANION GAP 12 (5-19); BLOOD UREA NITROGEN 21 mg/dL (7-20); CALCIUM 11.1 mg/dL (8.4-10.2); CARBON DIOXIDE 27 mmol/L (22-30); CHLORIDE 99 mmol/L (98-107); GLUCOSE 129 mg/dL (75-110)
== END ==
LOC: OD 09:18
PROVIDERS: ATTEND Family Medicine Geriatric Medicine
DX: Z79.899 Other long term (current) drug therapy (principal)
CPT/HCPCS: 36415; 80048

== ENCOUNTER → 2020-07-13 | Outpatient (CLI) | payer MEDICARE, MEDICAID | LOC: RAD 09:38 | PROVIDERS: ATTEND Surgery | DX: E21.3 Hyperparathyroidism, unspecified (principal) ==

== ENCOUNTER → 2020-07-25 | Outpatient (CLI) | payer MEDICARE, MEDICAID ==
--- NOTE | 2020-07-25 14:56 | RADIOLOGY REPORT (SQ) ---
EXAM DESCRIPTION: NM PARATHYROID IMAGING IMAGES COMPLETED DATE/TIME: 07/25/2020 1:43 pm REASON FOR STUDY: E21.3 HYPERPARATHYROIDISM, UNSPECIFIED E21.3 HYPERPARATHYROIDISM, UNSPECIFIED COMPARISON: None. RADIONUCLIDE AND DOSE: 21.7 millicuries Tc-99m Sestamibi. The route of agent administration: Intravenous ADDITIONAL DRUGS AND DOSES: None. TECHNIQUE: Early and delayed images of the neck acquired following radionuclide administration. LIMITATIONS: None. FINDINGS: Thyroid: Normal size. Homogeneous activity. Normal washout. No focal lesions. Parathyroid: No retained activity in the thyroid or elsewhere in the neck to indicate a parathyroid a denoma. Other: No other significant findings. IMPRESSION: NORMAL STUDY. NO EVIDENCE OF PARATHYROID ADENOMA. TECHNICAL DOCUMENTATION: JOB ID: [id number] 2010 [employer]- All Rights Reserved Reading location - IP/workstation name: [email or web address]
== END ==
LOC: RAD 09:29
PROVIDERS: ATTEND Surgery
DX: E21.3 Hyperparathyroidism, unspecified (principal)
CPT/HCPCS: 78070; A9500; Q9969

== ENCOUNTER → 2020-08-29 | Outpatient (CLI) | payer MEDICARE, MEDICAID ==
[2020-08-29 13:18] LABS: ABSOLUTE EOSINOPHILS # (AUTO) 0.2 10^3/uL (0.0-0.6); ABSOLUTE LYMPHOCYTES (AUTO) 1.2 10^3/uL (0.5-4.7); ABSOLUTE MONOCYTES (AUTO) 0.2 10^3/uL (0.1-1.4); ABSOLUTE NEUT (AUTO) 2.6 10^3/uL (1.7-8.2); BASOPHILS % (AUTO) 0.7 % (0-2); EOSINOPHILS % (AUTO) 4.3 % (0-6); HEMOGLOBIN 11.4 g/dL (13.5-17.0); LYMPHOCYTES % (AUTO) 28.7 % (13-45); MEAN CORPUSCULAR HEMOGLOBIN 23.3 pg (27.0-33.4); MEAN CORPUSCULAR HGB CONC 31.6 g/dL (32.0-36.0); MEAN CORPUSCULAR VOLUME 74 fl (80-97); MONOCYTES % (AUTO) 5.4 % (3-13); PLATELET COUNT 204 10^3/uL (150-450); RED BLOOD COUNT 4.89 10^6/uL (4.35-5.55); RED CELL DISTRIBUTION WIDTH 18.7 % (11.5-14.0); SEGMENTED NEUTROPHILS % (AUTO) 60.9 % (42-78); TOTAL CELLS COUNTED % (AUTO) 100 %; WHITE BLOOD COUNT 4.2 10^3/uL (4.0-10.5)
[2020-08-29 13:39] LABS: ANION GAP 10 (5-19); BLOOD UREA NITROGEN 17 mg/dL (7-20); CALCIUM 11.5 mg/dL (8.4-10.2); CARBON DIOXIDE 28 mmol/L (22-30); CHLORIDE 102 mmol/L (98-107); GLUCOSE 107 mg/dL (75-110); POTASSIUM 4.4 mmol/L (3.6-5.0); TRIGLYCERIDES 110 mg/dL (<150)
[2020-08-29 13:50] LABS: DIRECT LDL 89 mg/dL (<100)
== END ==
LOC: OD 12:01
PROVIDERS: ATTEND Family Medicine Geriatric Medicine
DX: I10 Essential (primary) hypertension (principal); E21.3 Hyperparathyroidism, unspecified; I48.11 Longstanding persistent atrial fibrillation; R73.9 Hyperglycemia, unspecified; Z79.899 Other long term (current) drug therapy
CPT/HCPCS: 36415; 80048; 80061; 83036; 85025

== ENCOUNTER 2020-10-01 11:44 | Emergency (ER) | payer MEDICARE, MEDICAID ==
[2020-10-01 12:08] VITALS: BP 147/74
--- NOTE | 2020-10-01 12:21 | ER Document Report ---
ED Medical Screen (RME) - General Chief Complaint: Fall Injury Stated Complaint: FELL IN TUB/HEAD,RIB INJURY Time Seen by Provider: 10/01/20 12:14 Information source: Patient Notes: HPI; 54-year-old male with history of traumatic brain injury on Eliquis presents to the emergency room after a fall at home. Patient states he was in the shower when he grabbed the bar along the wall losing his balance and falling forward in the tub. States he was able to catch himself before he hit the edge of the tub and when he went to stand up he fell backward hitting his head and passed out. Unknown loss of consciousness. He is complaining of pain to his left thumb. Abrasions to his bilateral ankles. Also states when he was cleaning his left ear with a Q-tip after the fall he noticed some blood on the edge of the Q-tip. Denies any nausea, vomiting, no shortness of breath, no difficulty breathing. Tetanus up-to-date. PE: Alert and oriented x3. No cespedes signs, no raccoon eyes. There is a scratch noted to the left external ear canal no active bleeding noted. Lungs: Clear to auscultation without rales, rhonchi, wheezes. Heart: Regular rate rhythm without murmurs, rubs, gallops. I have greeted and performed a rapid initial assessment of this patient. A comprehensive ED assessment and evaluation of the patient, analysis of test results and completion of the medical decision making process will be conducted by additional ED providers. I have specifically instructed the patient or family members with the patient to immediately return to any nursing staff should anything change in the patient's condition or with their chief complaint. TRAVEL OUTSIDE OF THE [place] IN LAST 30 DAYS: No - Related Data Allergies/Adverse Reactions: No Known Allergies Allergy (Verified 05/27/20 15:45) Past Medical History - Past Medical History Cardiac Medical History: Reports: Hx Atrial Fibrillation, Hx Congestive Heart Failure, Hx Hypercholesterolemia, Hx Hypertension, Hx Peripheral Vascular Disease Denies: Hx Coronary Artery Disease, Hx Heart Attack Pulmonary Medical History: Reports: Hx Sleep Apnea Denies: Hx Asthma, Hx Bronchitis, Hx COPD, Hx Pneumonia Neurological Medical History: Reports: Hx Seizures - TRAUMATIC BRAIN INJURY 6 MONTHS AGO. Denies: Hx Cerebrovascular Accident Endocrine Medical History: Reports: Hx Diabetes Mellitus Type 2 Malignancy Medical History: Reports Hx Skin Cancer - Melanoma Musculoskeltal Medical History: Reports Hx Arthritis, Reports Hx Musculoskeletal Deformity, Reports Hx Musculoskeletal Trauma Skin Medical History: Reports Hx Cellulitis Psychiatric Medical History: Reports: Hx Depression Past Surgical History: Reports: Hx Adenoidectomy, Hx Orthopedic Surgery - Total left hip replacement, bone graft left knee second toe foot removed,, Hx Tonsillectomy, Other - Bunionectomy - Immunizations Hx Diphtheria, Pertussis, Tetanus Vaccination: Yes Physical Exam - Vital signs Vitals: Temp Pulse Resp BP Pulse Ox 98.9 F 87 24 H 147/74 H 100 10/01/20 12:06 10/01/20 12:06 10/01/20 12:06 10/01/20 12:06 10/01/20 12:06 Course - Vital Signs Vital signs: Temp Pulse Resp BP Pulse Ox 98.9 F 87 24 H 147/74 H 100 10/01/20 12:06 10/01/20 12:06 10/01/20 12:06 10/01/20 12:06 10/01/20 12:06 Doctor's Discharge - Discharge Referrals: QUINN CHOI MD [Primary Care Provider] - Follow up as needed
[2020-10-01 12:49] LABS: ABSOLUTE EOSINOPHILS # (AUTO) 0.1 10^3/uL (0.0-0.6); ABSOLUTE LYMPHOCYTES (AUTO) 1.2 10^3/uL (0.5-4.7); ABSOLUTE MONOCYTES (AUTO) 0.4 10^3/uL (0.1-1.4); ABSOLUTE NEUT (AUTO) 4.2 10^3/uL (1.7-8.2); BASOPHILS % (AUTO) 0.5 % (0-2); EOSINOPHILS % (AUTO) 2.4 % (0-6); HEMATOCRIT 33.8 % (37.9-51.0); HEMOGLOBIN 10.8 g/dL (13.5-17.0); MEAN CORPUSCULAR HEMOGLOBIN 23.1 pg (27.0-33.4); MEAN CORPUSCULAR HGB CONC 31.9 g/dL (32.0-36.0); MEAN CORPUSCULAR VOLUME 72 fl (80-97); MONOCYTES % (AUTO) 6.5 % (3-13); PLATELET COUNT 204 10^3/uL (150-450); RED BLOOD COUNT 4.67 10^6/uL (4.35-5.55); RED CELL DISTRIBUTION WIDTH 18.6 % (11.5-14.0); SEGMENTED NEUTROPHILS % (AUTO) 70.6 % (42-78); TOTAL CELLS COUNTED % (AUTO) 100 %; WHITE BLOOD COUNT 5.9 10^3/uL (4.0-10.5)
[2020-10-01 12:58] LABS: INTERNATIONAL RATION (INR) 1.65; PROTHROMBIN TIME 19.6 SEC (11.4-15.4)
[2020-10-01 13:08] LABS: ALBUMIN 4.3 g/dL (3.5-5.0); ALKALINE PHOSPHATASE 120 U/L (38-126); ANION GAP 8 (5-19); ASPARTATE AMINO TRANSFERASE 27 U/L (17-59); BILIRUBIN,TOTAL 0.5 mg/dL (0.2-1.3); BLOOD UREA NITROGEN 19 mg/dL (7-20); CALCIUM 11.6 mg/dL (8.4-10.2); CARBON DIOXIDE 30 mmol/L (22-30); CHLORIDE 104 mmol/L (98-107); GLUCOSE 125 mg/dL (75-110); POTASSIUM 4.4 mmol/L (3.6-5.0)
--- NOTE | 2020-10-01 13:30 | RADIOLOGY REPORT (SQ) ---
EXAM DESCRIPTION: CT HEAD WITHOUT IMAGES COMPLETED DATE/TIME: 10/01/2020 12:52 pm REASON FOR STUDY: trauma COMPARISON: None. TECHNIQUE: Axial images acquired through the brain without intravenous contrast. Images reviewed wi th bone, brain and subdural windows. Additional sagittal and coronal reconstructions were generated. Images stored on PACS. All CT scanners at this facility use dose modulation, iterative reconstruction, and/or weight based d osing when appropriate to reduce radiation dose to as low as reasonably achievable (ALARA). [facility]: Dose Right [facility]: CareDose [facility]: Dose Right [facility]: Teradose 4D [facility]: Smart [employer] RADIATION DOSE: CT Rad equipment meets quality standard of care and radiation dose reduction techniq ues were employed. CTDIvol: 53.2 mGy. DLP: 1981 mGy-cm. mGy. LIMITATIONS: None. FINDINGS: VENTRICLES: Normal size and contour. CEREBRUM: No CT evidence of acute large territory infarct, acute intracranial hemorrhage, mass effect , or midline shift Focal encephalomalacia in the anterior right temporal lobe, bilateral inferior frontal lobes from rem ote prior closed head injury CEREBELLUM: No masses. No hemorrhage. No alteration of density. No evidence for acute infarction. EXTRAAXIAL SPACES: No fluid collections. No masses. ORBITS AND GLOBE: No intra- or extraconal masses. Normal contour of globe without masses. CALVARIUM: No fracture. PARANASAL SINUSES: No fluid or mucosal thickening. SOFT TISSUES: No mass or hematoma. OTHER: No other significant finding. IMPRESSION: No acute findings EVIDENCE OF ACUTE STROKE: NO. COMMENT: Quality ID # [id number]: Final reports with documentation of one or more dose reduction techniques (e.g., Automated exposure control, adjustment of the mA and/or kV according to patient size, use of iterative reconstruction technique) TECHNICAL DOCUMENTATION: JOB ID: [id number] 2010 [employer]- All Rights Reserved Reading location - IP/workstation name: [id number]
--- NOTE | 2020-10-01 13:32 | RADIOLOGY REPORT (SQ) ---
EXAM DESCRIPTION: CT CERVICAL SPINE WITHOUT IMAGES COMPLETED DATE/TIME: 10/01/2020 12:52 pm REASON FOR STUDY: trauma COMPARISON: CT brain same date TECHNIQUE: Axial images acquired through the cervical spine without intravenous contrast. Images re viewed with lung, soft tissue and bone windows. Reconstructed coronal and sagittal MPR images review ed. Images stored on PACS. All CT scanners at this facility use dose modulation, iterative reconstruction, and/or weight based d osing when appropriate to reduce radiation dose to as low as reasonably achievable (ALARA). [facility]: Dose Right [facility]: CareDose [facility]: Dose Right [facility]: Teradose 4D [facility]: [employer] RADIATION DOSE: CT Rad equipment meets quality standard of care and radiation dose reduction techniq ues were employed. CTDIvol: 29.0 mGy. DLP: 578 mGy-cm. mGy. LIMITATIONS: None. FINDINGS: ALIGNMENT: Anatomic. MINERALIZATION: Normal. VERTEBRAL BODIES: No fractures or dislocation. DISCS: Multilevel disc space narrowing with osteophytes. FACETS, LATERAL MASSES, POSTERIOR ELEMENTS: Facet arthropathy. No fractures. No dislocation. No ac nenana findings. HARDWARE: None in the spine. VISUALIZED RIBS: No fractures. LUNG APICES AND SOFT TISSUES: No significant or acute findings. OTHER: No other significant finding. IMPRESSION: CHRONIC DEGENERATIVE CHANGES. NO ACUTE FINDINGS. TECHNICAL DOCUMENTATION: JOB ID: [id number] Quality ID # [id number]: Final reports with documentation of one or more dose reduction techniques (e.g., Au tomated exposure control, adjustment of the mA and/or kV according to patient size, use of iterative reconstruction technique) 2010 [employer]- All Rights Reserved Reading location - IP/workstation name: [email or web address]
--- NOTE | 2020-10-01 13:33 | RADIOLOGY REPORT (SQ) ---
EXAM DESCRIPTION: HAND LEFT 3 VIEWS IMAGES COMPLETED DATE/TIME: 10/01/2020 12:56 pm REASON FOR STUDY: trauma COMPARISON: None. EXAM PARAMETERS: NUMBER OF VIEWS: Three views. TECHNIQUE: AP, lateral and oblique radiographic images acquired of the left hand. LIMITATIONS: None. FINDINGS: MINERALIZATION: Normal. BONES: No acute fracture or dislocation. No worrisome bone lesions. JOINTS: No effusions. SOFT TISSUES: No soft tissue swelling. No foreign body. OTHER: No other significant finding. IMPRESSION: NEGATIVE STUDY OF THE LEFT HAND. NO RADIOGRAPHIC EVIDENCE OF ACUTE INJURY. TECHNICAL DOCUMENTATION: JOB ID: [id number] 2010 [employer]- All Rights Reserved Reading location - IP/workstation name: [id number]
[2020-10-01] MEDS ORDERED: ACETAMINOPHEN 325 MG TABLET PO ONE (13:59)
--- NOTE | 2020-10-01 15:16 | ER Document Report ---
Entered by JAYLA CORTES SCRIBE 10/01/20 0304 Acting as scribe for:BLANCA HIGH MD ED Fall - General Chief Complaint: Fall Injury Stated Complaint: FELL IN TUB/HEAD,RIB INJURY Time Seen by Provider: 10/01/20 12:14 Primary Care Provider: QUINN CHOI MD [Primary Care Provider] - Follow up as needed Mode of Arrival: Ambulatory Information source: Patient Notes: This 54 year old male patient with a history of traumatic brain injury on Xarelto presents to the ED today for evaluation after a fall that occurred around 1100 this morning. Patient states that he was in the shower and grabbed the bar along the wall which fell, causing him to lose his balance and fall forward in the tub. He reports that he was able to catch himself before he hit the edge of the tub and when he went to stand up he fell again, hitting the back of his head; loss of consciousness is unknown. He states that his left thumb hurts the most and that he has an occipital headache. He also notes abrasions to his bilateral ankles. He mentions that after cleaning his left ear with a Q-tip, he noticed some blood on the Q-tip. Denies nausea, vomiting, or blurred/double vision. Tetanus is UTD. TRAVEL OUTSIDE OF THE [place] IN LAST 30 DAYS: No - Related data Allergies/Adverse Reactions: No Known Allergies Allergy (Verified 05/27/20 15:45) Past Medical History - General Information source: Patient, [facility], [facility] Records - Social History Smoking Status: Former Smoker Cigarette use (# per day): No Chew tobacco use (# tins/day): No Smoking Education Provided: No Frequency of alcohol use: None Drug Abuse: None Family History: Reviewed & Not Pertinent, CAD - Mother from [place] at 57, Other - Patient reports he does not talk with his family much estranged Patient has suicidal ideation: No Patient has homicidal ideation: No - Past Medical History Cardiac Medical History: Reports: Hx Atrial Fibrillation, Hx Congestive Heart Failure, Hx Hypercholesterolemia, Hx Hypertension, Hx Peripheral Vascular Disease Pulmonary Medical History: Reports: Hx Sleep Apnea Neurological Medical History: Reports: Hx Seizures - TRAUMATIC BRAIN INJURY Endocrine Medical History: Reports: Hx Diabetes Mellitus Type 2 Malignancy Medical History: Reports Hx Skin Cancer - Melanoma Musculoskeletal Medical History: Reports Hx Arthritis, Reports Hx Musculoskeletal Deformity, Reports Hx Musculoskeletal Trauma Skin Medical History: Reports Hx Cellulitis Psychiatric Medical History: Reports: Hx Anxiety, Hx Depression Traumatic Medical History: Reports: Hx Traumatic Brain Injury Past Surgical History: Reports: Hx Adenoidectomy, Hx Orthopedic Surgery - Total left hip replacement, bone graft left knee second toe foot removed, Hx Tonsillectomy, Other - Bunionectomy - Immunizations Hx Diphtheria, Pertussis, Tetanus Vaccination: Yes Review of Systems - Review of Systems Constitutional: No symptoms reported EENT: See HPI. denies: Blurred vision, Double vision Cardiovascular: No symptoms reported Respiratory: No symptoms reported Gastrointestinal: See HPI. denies: Nausea, Vomiting Genitourinary: No symptoms reported Male Genitourinary: No symptoms reported Musculoskeletal: See HPI, Other - left thumb pain Skin: No symptoms reported Hematologic/Lymphatic: No symptoms reported Neurological/Psychological: See HPI, Headaches. denies: Lost consciousness -: Yes All other systems reviewed and negative Physical Exam - Vital signs Vitals: Temp Pulse Resp BP Pulse Ox 98.9 F 87 24 H 147/74 H 100 10/01/20 12:06 10/01/20 12:06 10/01/20 12:06 10/01/20 12:06 10/01/20 12:06 - General General appearance: Alert In distress: None - HEENT Head: Normocephalic, Abrasions - There is a 2.5 cm abrasion with swelling noted to the midline forehead. There is also a 2 cm soft tissue abrased area in the mid-occiput.. No: Racoon's eyes Eyes: Normal Extraocular movements intact: Yes Pupils: PERRL Ears: Normal External canal: Normal. No: Blood in canal Neck: Normal, Supple - Respiratory Respiratory status: No respiratory distress Chest status: Nontender Breath sounds: Normal Chest palpation: Normal - Cardiovascular Rhythm: Regular Heart sounds: Normal auscultation Murmur: No Friction rub: No Gallop: None auscultated - Abdominal Inspection: Morbidly Obese Bowel sounds: Normal Tenderness: Nontender Organomegaly: No organomegaly - Back Back: Normal, Nontender - Extremities General upper extremity: Normal inspection General lower extremity: Edema - Chronic brawny edema to bilateral lower extremities Ankle: Abrasion - Superficial abrasions noted to bilateral ankles - Neurological Neuro grossly intact: Yes Orientation: AAOx4 Jose Coma Scale Eye Opening: Spontaneous Jose Coma Scale Verbal: Oriented Jasper Coma Scale Motor: Obeys Commands Jose Coma Scale Total: 15 - Psychological Associated symptoms: Normal affect, Normal mood - Skin Skin Temperature: Warm Skin Moisture: Dry Skin Color: Normal Course - Re-evaluation Re-evalutation: 10/01/20 15:04 Patient resting comfortably at this time not showing any signs of distress no nausea vomiting no neurological problems denies any chest pain abdominal pain or problems in extremities other than his left. - Vital Signs Vital signs: Temp Pulse Resp BP Pulse Ox 98.9 F 87 24 H 147/74 H 100 10/01/20 12:06 10/01/20 12:06 10/01/20 12:06 10/01/20 12:06 10/01/20 12:06 - Laboratory Result Diagrams: 10/01/20 12:30 10/01/20 12:30 Laboratory results interpreted by me: 10/01/20 10/01/20 10/01/20 12:30 12:30 12:30 Hgb 10.8 L Hct 33.8 L MCV 72 L MCH 23.1 L MCHC 31.9 L RDW 18.6 H PT 19.6 H Glucose 125 H Calcium 11.6 H 10/01/20 15:05 Laboratories within normal range. Patient has a glucose of 125 calcium 11.6 - Diagnostic Test Radiology reviewed: Image reviewed, Reports reviewed Radiology results interpreted by me: 10/01/20 13:[address] 10/01/20 12:18 IMPRESSION: CHRONIC DEGENERATIVE CHANGES. NO ACUTE FINDINGS. Hand X-Ray 10/01/20 12:18 IMPRESSION: NEGATIVE STUDY OF THE LEFT HAND. NO RADIOGRAPHIC EVIDENCE OF ACUTE INJURY. Head CT 10/01/20 12:18 IMPRESSION: No acute findings EVIDENCE OF ACUTE STROKE: NO. 10/01/20 15:[address] shows no evidence of a stroke hand x-ray no radiographic evidence of any acute injury. Otherwise negative cervical spine CT scan shows chronic degenerative changes no acute findings. Discharge - Discharge Clinical Impression: Accidental fall, Left thumb sprain, Multiple abrasions, Chronic elevated calcium, Chronic atrial fibrillation Condition: Stable Disposition: HOME, SELF-CARE Additional Instructions: Sprained Thumb You have a sprain of the thumb. A sprain is an over-stretching or tearing of the ligaments which guard the joint. The injury may require a few weeks of protection while it heals. The usual treatment is ice packs, elevation, and rest of the thumb. A splint is usually placed. Because the thumb is more vulnerable to re-injury than the fingers, it often must be protected by a heavy splint for a surprisingly long time. Healing can take three to six weeks. Your physician has assessed the seriousness of the ligament injury in your thumb and has outlined the initial treatment plan. Understand that this treat ment may change, depending on how your thumb progresses. If further exams were recommended, it's important that you follow up as instructed. Call the doctor any time if swelling or pain becomes severe, or if numbness develops in the thumb. Recommend you take Tylenol as needed you may take 1000 mg Tylenol twice a day as needed for pain. Wear splint until improved or if no improvement follow-up with your doctor within 1 week. Referrals: QUINN CHOI MD [Primary Care Provider] - Follow up as needed I personally performed the services described in the documentation, reviewed and edited the documentation which was dictated to the scribe in my presence, and it accurately records my words and actions.
== END 2020-10-01 15:20 | disposition home or self-care (01) ==
LOC: ER 11:44
DX: S63.602A Unspecified sprain of left thumb, initial encounter (principal); S90.512A Abrasion, left ankle, initial encounter; S90.511A Abrasion, right ankle, initial encounter; S00.81XA Abrasion of other part of head, initial encounter; R51.9 Headache, unspecified; W18.2XXA Fall in (into) shower or empty bathtub, initial encounter; M47.812 Spondylosis without myelopathy or radiculopathy, cervical region; R60.0 Localized edema; R79.89 Other specified abnormal findings of blood chemistry; I10 Essential (primary) hypertension; E11.51 Type 2 diabetes mellitus with diabetic peripheral angiopathy without gangrene; I48.20 Chronic atrial fibrillation, unspecified; Z79.01 Long term (current) use of anticoagulants; Z87.891 Personal history of nicotine dependence
CPT/HCPCS: 99285; 36415; 85025; 85610; 80053; 73130; 70450; 72125; A9270

== ENCOUNTER 2020-11-13 10:58 | Emergency (ER) | payer MEDICARE, MEDICAID ==
--- NOTE | 2020-11-13 12:31 | ER Document Report ---
ED Medical Screen (RME) - General Chief Complaint: Leg Swelling Stated Complaint: CELLULITIS/LEG PAIN Time Seen by Provider: 11/13/20 12:22 Primary Care Provider: QUINN MAURICE MD [Primary Care Provider] - Follow up as needed Mode of Arrival: Wheelchair Information source: Patient Notes: Patient is a 55-year-old male comes emergency room complaining of left lower extremity cellulitis. Patient states he has a history of cellulitis in the past which will require approximately 3 weeks. Patient currently sees Dr. Maurice but has not seen for this problem yet. Patient states he is a borderline diabetic currently on no medications. He has a history of A. fib and is on Xarelto and states he has had a little bit of chest pain for last couple days as well. Patient patient did not bring his medication list with him. He has denied any fevers but states that the lower extremity is weeping fluid. Physical examination: Patient is a well-nourished well-developed morbidly obese 55-year-old male no apparent distress on examination. Cardiac: Regular rate and rhythm was noted no murmurs were auscultated at this time. Lungs: Breath sounds increased clear to auscultation no rhonchi rales or wheeze heard. Lower extremities: Examination patient's her concern is her left lower extremity there is at least 4+ edema dizziness firm and weeping. Patient has soaked at least 1 bath towel in his pants. Mild erythema noted throughout and unable to ascertain the whole extremity cellulitis secondary to tight pants I cannot see above it. Examination of patient's right lower extremity also shows 3+ edema but no weeping. I have greeted and performed a rapid initial assessment of this patient. A comprehensive ED assessment and evaluation of the patient, analysis of test results and completion of the medical decision making process will be conducted by additional ED providers. Dictation of this chart was performed using voice recognition software; therefore, there may be some unintended grammatical errors. TRAVEL OUTSIDE OF THE [place] IN LAST 30 DAYS: No - Related Data Allergies/Adverse Reactions: No Known Allergies Allergy (Verified 05/27/20 15:45) Home Medications: buspirone, doxepin, venlafaxine, atorvastatin, furosemide, oxybutynin, zonisamide, amlodipine/hctz/losartan, xarelto, escitalopram, linzess, propanolol Past Medical History - Social History Chew tobacco use (# tins/day): No - Past Medical History Cardiac Medical History: Reports: Hx Atrial Fibrillation, Hx Congestive Heart Failure, Hx Hypercholesterolemia, Hx Hypertension, Hx Peripheral Vascular Disease Denies: Hx Coronary Artery Disease, Hx Heart Attack Pulmonary Medical History: Reports: Hx Sleep Apnea Denies: Hx Asthma, Hx Bronchitis, Hx COPD, Hx Pneumonia Neurological Medical History: Reports: Hx Seizures - TRAUMATIC BRAIN INJURY. Denies: Hx Cerebrovascular Accident Endocrine Medical History: Reports: Hx Diabetes Mellitus Type 2 Malignancy Medical History: Reports Hx Skin Cancer - Melanoma Musculoskeltal Medical History: Reports Hx Arthritis, Reports Hx Musculoskeletal Deformity, Reports Hx Musculoskeletal Trauma Skin Medical History: Reports Hx Cellulitis Psychiatric Medical History: Reports: Hx Anxiety, Hx Depression Traumatic Medical History: Reports: Hx Traumatic Brain Injury Past Surgical History: Reports: Hx Adenoidectomy, Hx Orthopedic Surgery - Total left hip replacement, bone graft left knee second toe foot removed, Hx Tonsillectomy, Other - Bunionectomy - Immunizations Hx Diphtheria, Pertussis, Tetanus Vaccination: Yes Physical Exam - Vital signs Vitals: Temp Pulse Resp BP Pulse Ox 98.1 F 90 16 149/79 H 97 11/13/20 11:11/13/20 11:11/13/20 11:11/13/20 11:11/13/20 11:01 Course - Vital Signs Vital signs: Temp Pulse Resp BP Pulse Ox 98.1 F 90 16 149/79 H 97 11/13/20 11:01 11/13/20 11:01 11/13/20 11:01 11/13/20 11:01 11/13/20 11:01 Doctor's Discharge - Discharge Referrals: QUINN MAURICE MD [Primary Care Provider] - Follow up as needed
[2020-11-13 13:16] LABS: ABSOLUTE EOSINOPHILS # (AUTO) 0.1 10^3/uL (0.0-0.6); ABSOLUTE LYMPHOCYTES (AUTO) 1.3 10^3/uL (0.5-4.7); ABSOLUTE MONOCYTES (AUTO) 0.4 10^3/uL (0.1-1.4); ABSOLUTE NEUT (AUTO) 3.3 10^3/uL (1.7-8.2); BASOPHILS % (AUTO) 0.7 % (0-2); EOSINOPHILS % (AUTO) 2.6 % (0-6); HEMATOCRIT 35.9 % (37.9-51.0); HEMOGLOBIN 11.4 g/dL (13.5-17.0); LYMPHOCYTES % (AUTO) 25.3 % (13-45); MEAN CORPUSCULAR HEMOGLOBIN 22.2 pg (27.0-33.4); MEAN CORPUSCULAR HGB CONC 31.8 g/dL (32.0-36.0); MEAN CORPUSCULAR VOLUME 70 fl (80-97); MONOCYTES % (AUTO) 7.6 % (3-13); PLATELET COUNT 178 10^3/uL (150-450); RED BLOOD COUNT 5.15 10^6/uL (4.35-5.55); RED CELL DISTRIBUTION WIDTH 18.9 % (11.5-14.0); SEGMENTED NEUTROPHILS % (AUTO) 63.8 % (42-78); TOTAL CELLS COUNTED % (AUTO) 100 %; WHITE BLOOD COUNT 5.1 10^3/uL (4.0-10.5)
[2020-11-13 13:40] LABS: ALBUMIN 4.4 g/dL (3.5-5.0); ALKALINE PHOSPHATASE 123 U/L (38-126); ANION GAP 8 (5-19); ASPARTATE AMINO TRANSFERASE 26 U/L (17-59); BILIRUBIN,DIRECT 0.2 mg/dL (0.0-0.4); BILIRUBIN,TOTAL 0.6 mg/dL (0.2-1.3); BLOOD UREA NITROGEN 21 mg/dL (7-20); CALCIUM 11.7 mg/dL (8.4-10.2); CARBON DIOXIDE 32 mmol/L (22-30); CHLORIDE 100 mmol/L (98-107); GLUCOSE 129 mg/dL (75-110); POTASSIUM 4.3 mmol/L (3.6-5.0); TOTAL PROTEIN 8.3 g/dL (6.3-8.2)
[2020-11-13 13:51] LABS: NT PRO BNP 28 pg/mL (<125)
[2020-11-13 14:02] LABS: TROPONIN I < 0.012 ng/mL
--- NOTE | 2020-11-13 19:41 | ER Document Report ---
ED General - General Chief Complaint: Leg Swelling Stated Complaint: CELLULITIS/LEG PAIN Time Seen by Provider: 11/13/20 12:22 Primary Care Provider: QUINN CHOI MD [Primary Care Provider] - Follow up as needed Mode of Arrival: Wheelchair TRAVEL OUTSIDE OF THE [place] IN LAST 30 DAYS: No - HPI Notes: 55-year-old male presents with concerns for infection to his left leg. Patient states that he has had redness and weeping to his left leg for the past 3 weeks, states he has been ignoring it. He has a history of cellulitis to both of his legs, last bout was about 4 months ago. He states that his primary care doctor was aware but was advised to go to the emergency department. He denies fever or chills. Still ambulatory. Triage note references chest pain, patient states that he has stated he was not having any chest pain. Has chronic leg swelling. - Related Data Allergies/Adverse Reactions: No Known Allergies Allergy (Verified 11/13/20 18:43) Home Medications: buspirone, doxepin, venlafaxine, atorvastatin, furosemide, oxybutynin, zonisamide, amlodipine/hctz/losartan, xarelto, escitalopram, linzess, propanolol Past Medical History - General Information source: Patient - Social History Smoking Status: Former Smoker Chew tobacco use (# tins/day): No Family History: Reviewed & Not Pertinent, CAD - Mother from [place] at 57, Other - Patient reports he does not talk with his family much estranged - Past Medical History Cardiac Medical History: Reports: Hx Atrial Fibrillation, Hx Congestive Heart Failure, Hx Hypercholesterolemia, Hx Hypertension, Hx Peripheral Vascular Disease Denies: Hx Coronary Artery Disease, Hx Heart Attack Pulmonary Medical History: Reports: Hx Sleep Apnea Denies: Hx Asthma, Hx Bronchitis, Hx COPD, Hx Pneumonia Neurological Medical History: Reports: Hx Seizures - TRAUMATIC BRAIN INJURY. Denies: Hx Cerebrovascular Accident Endocrine Medical History: Reports: Hx Diabetes Mellitus Type 2 Malignancy Medical History: Reports Hx Skin Cancer - Melanoma Musculoskeletal Medical History: Reports Hx Arthritis, Reports Hx Musculoskeletal Deformity, Reports Hx Musculoskeletal Trauma Skin Medical History: Reports Hx Cellulitis Psychiatric Medical History: Reports: Hx Anxiety, Hx Depression Traumatic Medical History: Reports: Hx Traumatic Brain Injury Past Surgical History: Reports: Hx Adenoidectomy, Hx Orthopedic Surgery - Total left hip replacement, bone graft left knee second toe foot removed, Hx Tonsillectomy, Other - Bunionectomy - Immunizations Hx Diphtheria, Pertussis, Tetanus Vaccination: Yes Review of Systems - Review of Systems Constitutional: denies: Fever EENT: No symptoms reported Cardiovascular: No symptoms reported Respiratory: No symptoms reported Gastrointestinal: No symptoms reported Genitourinary: No symptoms reported Male Genitourinary: No symptoms reported Musculoskeletal: See HPI Skin: See HPI Hematologic/Lymphatic: No symptoms reported Neurological/Psychological: No symptoms reported Physical Exam - Vital signs Vitals: Temp Pulse Resp BP Pulse Ox 98.1 F 90 16 149/79 H 97 11/13/20 11:01 11/13/20 11:01 11/13/20 11:01 11/13/20 11:01 11/13/20 11:01 - General General appearance: Appears well, Alert In distress: None - HEENT Head: Normocephalic, Atraumatic Extraocular movements intact: Yes Pupils: PERRL - Respiratory Breath sounds: Normal - Cardiovascular Rhythm: Regular Heart sounds: Normal auscultation - Abdominal Inspection: Obese - Extremities Notes: Bilateral legs exhibit chronic skin changes and swelling consistent with known lymphedema. There is some erythema present to the left leg with skin weeping present. No obvious wounds or lesions. No crepitance. - Neurological Neuro grossly intact: Yes Cognition: Normal Orientation: AAOx4 - Psychological Associated symptoms: Normal affect - Skin Skin Temperature: Warm Course - Re-evaluation Re-evalutation: 55-year-old male with chronic lymphedema to his lower extremities here with left leg swelling x3 weeks. On exam patient clinically has a mild cellulitis. There are no obvious wounds, ulcers or other areas of injury. Patient is ambulatory. He is nontoxic-appearing, afebrile. Labs obtained through triage are grossly unremarkable. Given his reassuring work-up and presentation, patient would be appropriate to trial outpatient antibiotics. He is given dose of doxycycline and discharged with same. Patient agreeable to plan and looking forward to going home. He was instructed to have very close PCP follow-up, discussed with him need to be seen by the end of this week. Return precautions given, stable time of discharge. - Vital Signs Vital signs: Temp Pulse Resp BP Pulse Ox 98.0 F 100 16 136/77 H 95 11/13/20 20:43 11/13/20 20:43 11/13/20 11:01 11/13/20 20:43 11/13/20 20:43 - Laboratory Results Result Diagrams: 11/13/20 12:58 11/13/20 12:58 Laboratory Results Interpreted: 11/13/20 11/13/20 12:58 12:58 Hgb 11.4 L Hct 35.9 L MCV 70 L MCH 22.2 L MCHC 31.8 L RDW 18.9 H Carbon Dioxide 32 H BUN 21 H Glucose 129 H Calcium 11.7 H Total Protein 8.3 H Critical Laboratory Results Reviewed: No Critical Results - Radiology Results Critical Radiology Results Reviewed: No Critical Results - EKG Interpretation by Me Additional EKG results interpreted by me: EKG is interpreted by me. Sinus rhythm, rate 99. IVCD. QTc within normal limits. No ST segment elevation or depressions. Discharge - Discharge Clinical Impression: Cellulitis of left leg, Lymphedema of both lower extremities Condition: Stable Disposition: HOME, SELF-CARE Additional Instructions: Please begin course of doxycycline for infection. Please have very close follow-up with your primary care doctor, you need to be seen this week. Also discussed a referral to wound care for chronic lymphedema management. Return to the emergency department for any concerning worsening symptoms. Prescriptions: Doxycycline Monohydrate 100 mg PO BID 14 Days #28 capsule Referrals: QUINN CHOI MD [Primary Care Provider] - Follow up as needed
[2020-11-13] MEDS ORDERED: HYDROCODONE/ACETAMINOPHEN 5-325 MG TABLET PO ONE (20:00)
[2020-11-13] MEDS ORDERED: HYDROCODONE/ACETAMINOPHEN 5-325 MG (6 TAB/ER DISP) PO PRN (20:00)
[2020-11-13] MEDS ORDERED: DOXYCYCLINE HYCLATE 100 MG TABLET PO ONE (20:00)
[2020-11-13 20:48] VITALS: BP 136/77
--- NOTE | 2020-11-14 09:07 | EKG REPORT ---
SEVERITY:- ABNORMAL ECG - SINUS RHYTHM MULTIPLE ATRIAL PREMATURE COMPLEXES PROBABLE LEFT ATRIAL ABNORMALITY BORDERLINE IVCD WITH LAD LOW VOLTAGE IN FRONTAL LEADS BORDERLINE T ABNORMALITIES, ANT-LAT LEADS : Confirmed by: Surjit Gomez MD 14-Nov-2020 09:06:33
== END 2020-11-13 20:48 | disposition home or self-care (01) ==
LOC: ER 10:58
DX: L03.116 Cellulitis of left lower limb (principal); I89.0 Lymphedema, not elsewhere classified
CPT/HCPCS: 93005; 99284; 36415; 83605; 85025; 80053; 84484; 83880; 93010; A9270 ×3